=== PATIENT | male | born 1935 | race Caucasian/White ===

== ENCOUNTER 2017-02-05 14:07 | Inpatient (IN) | payer MEDICARE ==
[~2017-02-05] VITALS: Ht 172.7 cm; Wt 86.0 kg
[~2017-02-05 14:07] MED LIST: ASPI81 PO; GLUC250C5 PO; TOBRO LEFT EYE; WARF3TAB PO; [UNRECOGNIZED DRUG - CODE] PO
[2017-02-05] MEDS ORDERED: MORPHINE SULFATE 4 MG/ML INJ IV PUSH ONE (14:30)
[2017-02-05] MEDS ORDERED: ONDANSETRON HCL 4 MG/2 ML VIAL IVP ONE (14:30)
--- NOTE | 2017-02-05 14:35 | PD ---
HPI Chief Complaint: Fall Time Seen by Provider: 14:13 Travel History International Travel<30 days: No Contact w/Intl Traveler<30days: No History of Present Illness HPI 81-year-old male with PMH of A. fib, CAD s/p CABG, on ASA presents to the ED via EMS for evaluation of 10/25 right hip pain. Described as constant, worsened by any attempted movement. Onset after the patient stepped off the curb at [employer] and fell onto the concrete. He denies hitting his head or loss of consciousness. He has not been ambulatory since the accident. He denies numbness or tingling of the extremity. He states that he drank a milkshake just before arrival. He is unsure of the date of his last tetanus immunization. He is followed by Dr. Restrepo, PCP. Cardiology, Dr. Mckeon. 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) High Cholesterol: No Chemotherapy: No Chest Pain: No Congestive Heart Failure: No COPD: No Cerebrovascular Accident: No Diabetes: No Diminished Hearing: No Endocrine: Yes Glaucoma: No Genitourinary: No Hepatitis: No Hiatal Hernia: No Immune Disorder: No Musculoskeletal: No Neurologic: No Psychiatric: No Respiratory: No Migraines: No Radiation Therapy: No Seizures: No Sickle Cell Disease: No Sleep Apnea: No Thyroid Disease: No Past Surgical History Abdominal Surgery: No AICD: No Cardiac Surgery: No Ear Surgery: No Endocrine Surgery: No Eye Surgery: No Genitourinary Surgery: No Oral Surgery: No Pacemaker: Yes Thoracic Surgery: No Social History Alcohol Use: No Tobacco Use: No Substance Use: No Allergies-Medications (Allergen,Severity, Reaction): Coded Allergies: Sulfa (Sulfonamide Antibiotics) (Unverified Allergy, Severe, 10/30/16) shellfish derived (Unverified Allergy, Severe, 10/30/16) latex (Verified Adverse Reaction, Unknown, 02/05/17) Reported Meds & Prescriptions Reported Meds & Active Scripts Active Reported [Unk Antibiotic] Metoprolol Tartrate 25 Mg Tab Unknown Dose PO DAILY Aspirin Low Dose (Aspirin) 81 Mg Chew 81 Mg CHEW DAILY Review of Systems Except as stated in HPI: all other systems reviewed are Neg Physical Exam Narrative GENERAL: Well-nourished, well-developed pleasant white male in no acute distress. SKIN: Focused skin assessment warm/dry. The 2 cm x 4 cm skin tear on the posterior aspect of the right forearm without active bleeding. HEAD: Normocephalic. EYES: No scleral icterus. No injection or drainage. NECK: Supple, trachea midline. No JVD or lymphadenopathy. CARDIOVASCULAR: Regular rate and rhythm without murmurs, gallops, or rubs. RESPIRATORY: Breath sounds equal bilaterally. No accessory muscle use. GASTROINTESTINAL: Abdomen soft, non-tender, nondistended. MUSCULOSKELETAL: No cyanosis, or edema. FOCUSED RIGHT LOWER EXTREMITY EXAM: 2+ DP pulse. Tender to palpation in the right anterior lateral hip and groin. Pain elicited with attempted internal and external rotation. Patient is able to wiggle the toes. Sensation intact to light touch distally. BACK: Nontender without obvious deformity. No CVA tenderness. Data Data Last Documented VS Vital Signs Date Time Temp Pulse Resp B/P (MAP) Pulse Ox O2 Delivery O2 Flow Rate FiO2 02/05/17 14:46 97.8 69 20 142/70 (94) 95 Orders Orders Complete Blood Count With Diff (02/05/17 14:19) Comprehensive Metabolic Panel (02/05/17 14:19) Prothrombin Time / Inr (Pt) (02/05/17 14:19) Act Partial Throm Time (Ptt) (02/05/17 14:19) Type And Screen (02/05/17 14:19) Chest, Single Ap (02/05/17 14:19) Hip, Uni(Ap&Lat) W Ap Pelvis (02/05/17 14:19) Iv Access Insert/Monitor (02/05/17 14:19) Ice/Cold Pack (02/05/17 14:19) Morphine Inj (Morphine Inj) (02/05/17 14:30) Ondansetron Inj (Zofran Inj) (02/05/17 14:30) Tetanus/Diphtheria Tox Adult (Tetanus/Di (02/05/17 14:45) NPO (02/05/17 15:40) Urinary Catheter Management AMISHA.Q8H (02/05/17 15:40) Urinalysis - C+S If Indicated (02/05/17 15:40) Admit Order (Ed Use Only) (02/05/17 16:05) Consult Orthopedic (02/05/17 ) Labs Laboratory Tests Test 02/05/17 14:30 White Blood Count 12.2 TH/MM3 Red Blood Count 4.84 MIL/MM3 Hemoglobin 16.3 GM/DL Hematocrit 47.1 % Mean Corpuscular Volume 97.3 FL Mean Corpuscular Hemoglobin 33.7 PG Mean Corpuscular Hemoglobin Concent 34.6 % Red Cell Distribution Width 12.6 % Platelet Count 224 TH/MM3 Mean Platelet Volume 9.2 FL Neutrophils (%) (Auto) 62.8 % Lymphocytes (%) (Auto) 20.5 % Monocytes (%) (Auto) 9.8 % Eosinophils (%) (Auto) 6.4 % Basophils (%) (Auto) 0.5 % Neutrophils # (Auto) 7.6 TH/MM3 Lymphocytes # (Auto) 2.5 TH/MM3 Monocytes # (Auto) 1.2 TH/MM3 Eosinophils # (Auto) 0.8 TH/MM3 Basophils # (Auto) 0.1 TH/MM3 CBC Comment AUTO DIFF Differential Total Cells Counted 100 Neutrophils % (Manual) 62 % Band Neutrophils % 2 % Lymphocytes % 21 % Monocytes % 9 % Eosinophils % 4 % Basophils % 1 % Neutrophils # (Manual) 7.9 TH/MM3 Metamyelocytes 1 % Differential Comment FINAL DIFF MANUAL Platelet Estimate NORMAL Platelet Morphology Comment NORMAL Prothrombin Time 11.4 SEC Prothromb Time International Ratio 1.0 RATIO Activated Partial Thromboplast Time 26.1 SEC Blood Urea Nitrogen 18 MG/DL Creatinine 0.84 MG/DL Random Glucose 102 MG/DL Total Protein 7.9 GM/DL Albumin 3.7 GM/DL Calcium Level 9.0 MG/DL Alkaline Phosphatase 80 U/L Aspartate Amino Transf (AST/SGOT) 26 U/L Alanine Aminotransferase (ALT/SGPT) 28 U/L Total Bilirubin 0.7 MG/DL Sodium Level 137 MEQ/L Potassium Level 3.9 MEQ/L Chloride Level 102 MEQ/L Carbon Dioxide Level 28.7 MEQ/L Anion Gap 6 MEQ/L Estimat Glomerular Filtration Rate 88 ML/MIN MDM Medical Decision Making Medical Screen Exam Complete: Yes Emergency Medical Condition: Yes Differential Diagnosis Fracture versus femur fracture versus contusion versus muscle skeletal pain versus other Narrative Course 81-year-old male with PMH of A. fib, CAD s/p CABG, on ASA presents to the ED via EMS for evaluation of 8/10 right hip pain. Described as constant, worsened by any attempted movement. Onset after the patient stepped off the curb at [employer] and fell onto the concrete. He has not been ambulatory since the accident. He states that he drank a milkshake just before arrival. He states that he is currently taking an unknown antibiotic for bronchitis. He is followed by Dr. Restrepo, PCP. Cardiology, Dr. Mckeon. Vitals reviewed. On physical exam the patient has a small skin tear on the right arm and tenderness to palpation of the right groin and anterior lateral hip which is exacerbated by attempted internal and external rotation. 2+ DP pulse, sensation intact distally. The patient is able to wiggle his toes. IV was established. Patient was administered 2 mg morphine and 4 mg Zofran IV. Tetanus of his age was updated. X-ray right hip and pelvis: Comminuted intertrochanteric right hip fracture per my read. CBC: WBC 12.2. Hemoglobin 16.3. INR 1.0. Chemistry unremarkable. CXR: Compensated cardiomegaly with left atelectasis per radiology read. EKG: pending Ariza catheter was inserted and UA is pending. I discussed the patient with Dr. Díaz who plans surgery tomorrow. I discussed the patient with Dr. Shah who agrees to accept the patient to the medicine service. Please see medicine and Ortho notes for disposition. Aziza Trujillo Feb 05, 2017 14:35
[2017-02-05] MEDS ORDERED: TETANUS/DIPHTHERIA TOXOID ADULT 0.5 ML VIAL IM ONE (14:45)
[2017-02-05 14:46] VITALS: BP 142/70; PULSE 69; RESP 20; TEMP 97.8; O2SAT 95
[2017-02-05 14:54] LABS: AUTOMATED NEUTROPHIL # 7.6 TH/MM3 (1.8-7.7); BASOPHIL # 0.1 TH/MM3 (0-0.2); BASOPHIL % 0.5 % (0.0-2.0); EOSINOPHIL # 0.8 TH/MM3 (0-0.4); EOSINOPHIL % 6.4 % (0.0-4.0); HEMATOCRIT 47.1 % (39.0-51.0); LYMPH % 20.5 % (9.0-44.0); LYMPHOCYTE # 2.5 TH/MM3 (1.0-4.8); MEAN CELL VOLUME 97.3 FL (80.0-100.0); MEAN CORPUSCULAR HEMOGLOBIN 33.7 PG (27.0-34.0); MEAN CORPUSCULAR HGB CONC 34.6 % (32.0-36.0); MONO % 9.8 % (0.0-8.0); NEUT % 62.8 % (16.0-70.0); PLATELET COUNT 224 TH/MM3 (150-450); RED BLOOD COUNT 4.84 MIL/MM3 (4.50-5.90); RED CELL DISTRIBUTION WIDTH 12.6 % (11.6-17.2); WHITE BLOOD COUNT 12.2 TH/MM3 (4.0-11.0)
[2017-02-05 14:55] LABS: APTT (PATIENT) 26.1 SEC (24.3-30.1); PROTHROMBIN TIME - PATIENT 11.4 SEC (9.8-11.6)
[2017-02-05 15:10] LABS: ALT (GPT) 28 U/L (12-78); ANION GAP 6 MEQ/L (5-15); AST (GOT) 26 U/L (15-37); BICARBONATE 28.7 MEQ/L (21.0-32.0); BLOOD UREA NITROGEN 18 MG/DL (7-18); CHLORIDE 102 MEQ/L (98-107); GLOMERULAR FILTRATION RATE 88 ML/MIN (>89); POTASSIUM 3.9 MEQ/L (3.5-5.1); SODIUM (NA) 137 MEQ/L (136-145)
[2017-02-05 15:12] LABS: HEMO FLAGS AUTO DIFF
[2017-02-05 15:13] LABS: ALKALINE PHOSPHATASE 80 U/L (45-117); TOTAL BILIRUBIN ADULT 0.7 MG/DL (0.2-1.0)
[2017-02-05] MEDS ORDERED: UNK ANTIBIOTIC (15:17)
[2017-02-05] MEDS ORDERED: METO25TA3 PO (15:17)
[2017-02-05] MEDS ORDERED: ASPI81CH6 CHEW (15:17)
--- NOTE | 2017-02-05 15:19 | RADRPT ---
EXAM DATE/TIME: 02/05/2017 14:56 [facility] COMPARISON: No previous studies available for comparison. INDICATIONS : Chest discomfort; fall today. MEDICAL HISTORY : Afib. SURGICAL HISTORY : CABG. Pacemaker. Cardiac cath. Valve repair. ENCOUNTER: Initial ACUITY: 1 day PAIN SCORE: 2/10 LOCATION: Bilateral chest FINDINGS: Dual-lead pacemaker in place. Cardiac silhouette is enlarged. Minimal left lung base airspace disease and associated volume loss. Bony thorax is intact. CONCLUSION: 1. Compensated cardiomegaly. 2. Minimal left lung base airspace disease, likely atelectasis. Sal Birmingham MD on February 05, 2017 at 15:16 Board Certified Radiologist. This report was verified electronically.
--- NOTE | 2017-02-05 15:23 | RADRPT ---
EXAM DATE/TIME: 02/05/2017 14:53 [facility] COMPARISON: No previous studies available for comparison. INDICATIONS : Right hip pain; fall today. MEDICAL HISTORY : None. SURGICAL HISTORY : None. ENCOUNTER: Initial ACUITY: 1 day PAIN SCORE: 10/10 LOCATION: Right hip FINDINGS: Examination of the right hip was performed with AP Pelvis. The is an intertrochanteric fracture of t he right hip with some foreshortening. Prominent lesser trochanteric fragment. The acetabulum is akil ssly intact. CONCLUSION: Slightly comminuted intertrochanteric fracture. Lobo Woods MD on February 05, 2017 at 15:20 Board Certified Radiologist. This report was verified electronically.
[2017-02-05 15:29] LABS: BANDS 2 % (0-6); BASOPHILS 1 % (0-2); EOSINOPHILS 4 % (0-4); METAMYELOCYTES 1 % (0-1); NEUTROPHIL # MANUAL DIFF 7.9 TH/MM3 (1.8-7.7); POLYS (SEG NEUTROPHILS) 62 % (16-70); WBC DIFF SAMPLE 100
[2017-02-05 15:31] LABS: PLATELET ESTIMATE SMEAR NORMAL (NORMAL); PLATELET MORPHOLOGY NORMAL (NORMAL); SCAN/DIFF FINAL DIFF MANUAL
[2017-02-05 16:47] LABS: BLOOD, URINE NEG (NEG); COMMENT (UR) CATH-CULT NOT IND; CULTURE IF INDICATED CATH CULTURE NOT IND; GLUCOSE,URINE NEG (NEG); KETONE, URINE NEG (NEG); MUCUS URINE FEW /lpf (OCC); NITRITE,URINE NEG (NEG); URINE COLOR YELLOW (YELLW/STRAW)
[2017-02-05] MEDS: SODIUM CHLOR 0.9% 1000 ML INJ 1,000 ML IV SCH ×2 (17:06→20:24)
[2017-02-05] MEDS ORDERED: ACETAMINOPHEN 325 MG TAB PO PRN ×2 (17:15)
[2017-02-05] MEDS ORDERED: SODIUM CHLORIDE 0.9% FLUSH 10 ML FLUSH IV FLUSH PRN (17:15)
[2017-02-05] MEDS ORDERED: MORPHINE SULFATE 4 MG/ML INJ IV PUSH PRN ×3 (17:15)
[2017-02-05] MEDS ORDERED: oxyCODONE/ACETAMINOPHEN 10 MG/325 MG TAB PO PRN (17:15)
[2017-02-05] MEDS ORDERED: PROCHLORPERAZINE 25 MG SUPP RECTAL PRN (17:15)
[2017-02-05] MEDS ORDERED: BISACODYL 10 MG SUPP RECTAL PRN (17:15)
[2017-02-05] MEDS ORDERED: oxyCODONE/ACETAMINOPHEN 5 MG/325 MG TAB PO PRN (17:15)
[2017-02-05] MEDS ORDERED: LACTULOSE SYRUP 20 GM/30 ML CUP PO PRN (17:15)
[2017-02-05] MEDS ORDERED: ONDANSETRON HCL 4 MG/2 ML VIAL IVP PRN (17:15)
[2017-02-05] MEDS ORDERED: NALOXONE HCL 0.4 MG/ML AMP IV PUSH PRN (17:15)
--- NOTE | 2017-02-05 17:25 | HHI.HP ---
[facility] Service [facility] Primary Care Physician PERRY Admission Diagnosis right intertrochanteric hip fracture Diagnoses: Chief Complaint: FALL Travel History International Travel<30 Days: No Contact w/Intl Traveler <30 Da: No Traveled to Known Affected Are: No History of Present Illness Patient is an 81-year-old male with history of atrial fibrillation, coronary artery disease status post coronary artery bypass graft, on aspirin presents TO THE emergency department via EMS for evaluation of 8 out of 10 right hip pain. Patient describes the pain constant worsened by any attempt of movement. Onset after the patient stepped off the curb at the [employer] and fell onto the concrete. He denies hitting his head or loss of consciousness. He has not been ambulatory since the incident. He denies any numbness or tingling of the extremities. He states he drank a milkshake just before arrival. He is unsure of the last date of his tetanus immunization. HIS primary care physician is Dr. Restrepo AND his core shaper sides is Dr. CORRAL. Review of Systems Constitutional: DENIES: Diaphoretic episodes, Fatigue, Fever, Weight gain, Weight loss, Chills, Dizziness, Change in appetite Endocrine: DENIES: Heat/cold intolerance, Polydipsia, Polyuria, Polyphagia Eyes: DENIES: Blurred vision, Diplopia, Eye inflammation, Eye pain, Vision loss Ears, nose, mouth, throat: DENIES: Tinnitus, Hearing loss, Vertigo, Nasal discharge Respiratory: DENIES: Apneas, Cough, Snoring, Wheezing, Hemoptysis Cardiovascular: DENIES: Chest pain, Palpitations, Syncope, Dyspnea on Exertion Gastrointestinal: DENIES: Abdominal pain, Black stools, Bloody stools Musculoskeletal: COMPLAINS OF: Joint pain, DENIES: Muscle aches, Stiffness, Joint Swelling, Back pain Integumentary: DENIES: Abnormal pigmentation, Nail changes Hematologic/lymphatic: DENIES: Bruising, Lymphadenopathy Immunologic/allergic: DENIES: Eczema, Urticaria Neurologic: COMPLAINS OF: Abnormal gait, DENIES: Headache, Localized weakness, Paresthesias, Seizures, Speech Problems Psychiatric: DENIES: Anxiety, Confusion, Mood changes, Depression, Hallucinations Except as stated in HPI: all other systems reviewed are Neg Past Family Social History Past Medical History Atrial fibrillation Coronary artery disease and history of CABG History of permanent pacemaker Past Surgical History Permanent pacemaker placement and coronary artery bypass and graft Reported Medications Reported Meds & Active Scripts Active Reported [Unk Antibiotic] Metoprolol Tartrate 25 Mg Tab Unknown Dose PO DAILY Aspirin Low Dose (Aspirin) 81 Mg Chew 81 Mg CHEW DAILY Allergies: Coded Allergies: Sulfa (Sulfonamide Antibiotics) (Unverified Allergy, Severe, 10/30/16) shellfish derived (Unverified Allergy, Severe, 10/30/16) latex (Verified Adverse Reaction, Unknown, 02/05/17) Active Ordered Medications Current Medications Morphine Sulfate (Morphine Inj) 2 mg ONCE ONCE IV PUSH Last administered on 14:38; Start 02/05/17 at 14:30; Stop 02/05/17 at 14:31; Status DC Ondansetron HCl (Zofran Inj) 4 mg ONCE ONCE IVP Last administered on 14:37; Start 02/05/17 at 14:30; Stop 02/05/17 at 14:31; Status DC Tetanus/ Diphtheria Toxoids (Tetanus/ Diphtheria Tox Adult) 0.5 ml ONCE ONCE IM Last administered on 02/05/17 15:50; Start 02/05/17 at 14:45; Stop at 14:46; Status DC Metoprolol Tartrate (Lopressor) 25 mg Q12HR PO ; Start 02/05/17 at 21:00; Status UNV Family History Noncontributing Social History Denies any tobacco alcohol or illicits Physical Exam Vital Signs Vital Signs Date Time Temp Pulse Resp B/P (MAP) Pulse Ox O2 Delivery O2 Flow Rate FiO2 02/05/17 14:46 97.8 69 20 142/70 (94) 95 Physical Exam GENERAL: This is a well-nourished, well-developed patient, in mild distress. SKIN: No rashes, ecchymoses or lesions. Cool and dry. HEAD: Atraumatic. Normocephalic. No temporal or scalp tenderness. EYES: Pupils equal round and reactive. Extraocular motions intact. No scleral icterus. No injection or drainage. ENT: Nose without bleeding, purulent drainage or septal hematoma. Throat without erythema, tonsillar hypertrophy or exudate. Uvula midline. Airway patent. NECK: Trachea midline. No JVD or lymphadenopathy. Supple, nontender, no meningeal signs. CARDIOVASCULAR: Regular rate and rhythm without murmurs, gallops, or rubs. S1 and S2 no S3 or S4 no heave or thrill or rub or gallop-- rate is paced RESPIRATORY: Clear to auscultation. Breath sounds equal bilaterally. No wheezes , rales, or rhonchi. GASTROINTESTINAL: Abdomen soft, non-tender, nondistended. No hepato-splenomegaly , or palpable masses. No guarding. MUSCULOSKELETAL: Extremities without clubbing, cyanosis, or edema. No joint tenderness, effusion, or edema noted. No calf tenderness. Negative Homans sign bilaterally. Tender right hip patient has decreased range of motion and let me move IT NEUROLOGICAL: Awake and alert. Cranial nerves II through XII intact. Motor and sensory grossly within normal limits. Five out of 5 muscle strength in all muscle groups. Normal speech. Insight and judgment is good mood and behaviors appropriate Laboratory Laboratory Tests Test 02/05/17 14:30 02/05/17 16:15 White Blood Count 12.2 Red Blood Count 4.84 Hemoglobin 16.3 Hematocrit 47.1 Mean Corpuscular Volume 97.3 Mean Corpuscular Hemoglobin 33.7 Mean Corpuscular Hemoglobin Concent 34.6 Red Cell Distribution Width 12.6 Platelet Count 224 Mean Platelet Volume 9.2 Neutrophils (%) (Auto) 62.8 Lymphocytes (%) (Auto) 20.5 Monocytes (%) (Auto) 9.8 Eosinophils (%) (Auto) 6.4 Basophils (%) (Auto) 0.5 Neutrophils # (Auto) 7.6 Lymphocytes # (Auto) 2.5 Monocytes # (Auto) 1.2 Eosinophils # (Auto) 0.8 Basophils # (Auto) 0.1 CBC Comment AUTO DIFF Differential Total Cells Counted 100 Neutrophils % (Manual) 62 Band Neutrophils % 2 Lymphocytes % 21 Monocytes % 9 Eosinophils % 4 Basophils % 1 Neutrophils # (Manual) 7.9 Metamyelocytes 1 Differential Comment FINAL DIFF MANUAL Platelet Estimate NORMAL Platelet Morphology Comment NORMAL Prothrombin Time 11.4 Prothromb Time International Ratio 1.0 Activated Partial Thromboplast Time 26.1 Blood Urea Nitrogen 18 Creatinine 0.84 Random Glucose 102 Total Protein 7.9 Albumin 3.7 Calcium Level 9.0 Alkaline Phosphatase 80 Aspartate Amino Transf (AST/SGOT) 26 Alanine Aminotransferase (ALT/SGPT) 28 Total Bilirubin 0.7 Sodium Level 137 Potassium Level 3.9 Chloride Level 102 Carbon Dioxide Level 28.7 Anion Gap 6 Estimat Glomerular Filtration Rate 88 Urine Color YELLOW Urine Turbidity HAZY Urine pH 7.0 Urine Specific [place] 1.021 Urine Protein NEG Urine Glucose (UA) NEG Urine Ketones NEG Urine Occult Blood NEG Urine Nitrite NEG Urine Bilirubin NEG Urine Urobilinogen LESS THAN 2.0 Urine Leukocyte Esterase NEG Urine RBC 2 Urine WBC 2 Urine Amorphous Sediment RARE Urine Mucus FEW Microscopic Urinalysis Comment CATH-CULT NOT IND Result Diagram: 02/05/17 1430 02/05/17 143 Imaging Last Impressions Hip and Pelvis X-Ray 02/05/171418 Signed Impressions: Service Date/Time: Sunday, February 05, 2017 14:53 - CONCLUSION: Slightly comminuted intertrochanteric fracture. Lobo Woods MD Chest X-Ray 02/05/171418 Signed Impressions: Service Date/Time: Sunday, February 05, 2017 14:56 - CONCLUSION: 1. Compensated cardiomegaly. 2. Minimal left lung base airspace disease, likely atelectasis. MD Oscar Cordova VTE Risk Assessment Billrini VTE Risk Assessment: Mod/High Risk (score >= 2) Caprini Risk Assessment Model Point Value = 1 Point Value = 2 Point Value = 3 Point Value = 5 Age 41-60 Minor surgery BMI > 25 kg/m2 Swollen legs Varicose veins or History of unexplained or recurrent spontaneous Oral contraceptives or hormone replacement Sepsis (< 1 month) Serious lung disease, including pneumonia (< 1 month) Abnormal pulmonary function Acute myocardial infarction Congestive heart failure (< 1 month) History of inflammatory bowel disease Medical patient at bed rest Age 61-74 Arthroscopic surgery Major open surgery (> 45 min) Laparoscopic surgery (> 45 min) Malignancy Confined to bed (> 72 hours) Immobilizing plaster cast Central venous access Age >= 75 History of VTE Family history of VTE Factor V Leiden Prothrombin [id number] Lupus anticoagulant Anticardiolipin antibodies Elevated serum homocysteine Heparin-induced thrombocytopenia Other congenital or acquired thrombophilia Stroke (< 1 month) Elective arthroplasty Hip, pelvis, or leg fracture Acute spinal cord injury (< 1 month) Prophylaxis Regimen Total Risk Factor Score Risk Level Prophylaxis Regimen 0-1 Low Early ambulation 2 Moderate Order ONE of the following: *Sequential Compression Device (SCD) *Heparin 5000 units SQ BID 3-4 Higher Order ONE of the following medications: *Heparin 5000 units SQ TID *Enoxaparin/Lovenox 40 mg SQ daily (WT < 150 kg, CrCl > 30 mL/min) *Enoxaparin/Lovenox 30 mg SQ daily (WT < 150 kg, CrCl > 10-29 mL/min) *Enoxaparin/Lovenox 30 mg SQ BID (WT < 150 kg, CrCl > 30 mL/min) AND/OR *Sequential Compression Device (SCD) 5 or more Highest Order ONE of the following medications: *Heparin 5000 units SQ TID (Preferred with Epidurals) *Enoxaparin/Lovenox 40 mg SQ daily (WT < 150 kg, CrCl > 30 mL/min) *Enoxaparin/Lovenox 30 mg SQ daily (WT < 150 kg, CrCl > 10-29 mL/min) *Enoxaparin/Lovenox 30 mg SQ BID (WT < 150 kg, CrCl > 30 mL/min) AND *Sequential Compression Device (SCD) Assessment and Plan Assessment and Plan Right intertrochanteric comminuted hip fracture status post fall-consult surgery Dr. Anton Consult cardiology for clearance Dr. CORRAL Pain control Nothing by mouth after midnight SCDs Chronic pacemaker consult cardiology Coronary artery disease status post CABG Continue metoprolol Chronic atrial fibrillation hold any anticoagulation consult cardiology for clearance Continue metoprolol Leukocytosis a.m. labs Moderate risk for surgery Code Status Full code Discussed Condition With Discussed with patient, RN, and family, and ER Physician Certification 2 Midnight Certification Type: Admission for Inpatient Services Order for Inpatient Services The services are ordered in accordance with Medicare regulations or non- Medicare payer requirements, as applicable. In the case of services not specified as inpatient-only, they are appropriately provided as inpatient services in accordance with the 2-midnight benchmark. Estimated LOS (days): 3 3 days is the estimated time the patient will need to remain in the hospital, assuming treatment plan goals are met and no additional complications. Post-Hospital Plan: Not yet determined Franklyn Shah DO Feb 05, 2017 17:25
[2017-02-05 20:23] VITALS: PULSE 80
[2017-02-05] MEDS: METOPROLOL TARTRATE 25 MG TAB PO SCH (20:24)
[2017-02-05] MEDS: DOCUSATE SODIUM 50 MG/SENNA 8.6 MG TAB PO SCH (20:24)
[2017-02-05] MEDS: SODIUM CHLORIDE 0.9% FLUSH 10 ML FLUSH IV FLUSH SCH (20:24)
[2017-02-05 20:25] VITALS: BP 131/71; PULSE 87; RESP 17; TEMP 98.3; O2SAT 95
[2017-02-06] VITALS (7 sets, daily range): BP systolic 110–125; BP diastolic 55–70; PULSE 78–98; RESP 17–18; TEMP 96–99; O2SAT 92–97
[2017-02-06] MEDS: SODIUM CHLOR 0.9% 1000 ML INJ 1,000 ML IV SCH ×2 (04:24→23:06)
[2017-02-06 04:35] LABS: AUTOMATED NEUTROPHIL # 11.1 TH/MM3 (1.8-7.7); BASOPHIL % 0.2 % (0.0-2.0); EOSINOPHIL # 0.3 TH/MM3 (0-0.4); EOSINOPHIL % 1.7 % (0.0-4.0); HEMO FLAGS DIFF FINAL; LYMPH % 15.4 % (9.0-44.0); LYMPHOCYTE # 2.4 TH/MM3 (1.0-4.8); MEAN CELL VOLUME 95.6 FL (80.0-100.0); MEAN CORPUSCULAR HEMOGLOBIN 32.7 PG (27.0-34.0); MEAN CORPUSCULAR HGB CONC 34.2 % (32.0-36.0); MONO % 11.9 % (0.0-8.0); NEUT % 70.8 % (16.0-70.0); PLATELET COUNT 225 TH/MM3 (150-450); RED BLOOD COUNT 4.08 MIL/MM3 (4.50-5.90); RED CELL DISTRIBUTION WIDTH 12.6 % (11.6-17.2); WHITE BLOOD COUNT 15.7 TH/MM3 (4.0-11.0)
[2017-02-06 04:53] LABS: ALKALINE PHOSPHATASE 56 U/L (45-117); ALT (GPT) 16 U/L (12-78); ANION GAP 7 MEQ/L (5-15); AST (GOT) 21 U/L (15-37); BICARBONATE 26.7 MEQ/L (21.0-32.0); BLOOD UREA NITROGEN 15 MG/DL (7-18); CHLORIDE 103 MEQ/L (98-107); FREE T4 1.39 NG/DL (0.76-1.46); GLOMERULAR FILTRATION RATE 99 ML/MIN (>89); MAGNESIUM 1.8 MG/DL (1.5-2.5); POTASSIUM 4.3 MEQ/L (3.5-5.1); SODIUM (NA) 137 MEQ/L (136-145); TOTAL BILIRUBIN ADULT 1.1 MG/DL (0.2-1.0)
--- NOTE | 2017-02-06 07:00 | PD.ORT.PN ---
Subjective Subjective Remarks Fransico was at [employer] when somebody was talking to him and as he turned around to respond he tripped and fell over the curb and landed on his right hip. He had significant pain and was unable to ambulate. He has no other associated complaints Objective Vitals Vital Signs Date Time Temp Pulse Resp B/P (MAP) Pulse Ox O2 Delivery O2 Flow Rate FiO2 02/06/17 04:10 98.9 80 17 114/59 (77) 95 02/06/17 00:15 99.0 79 17 110/55 (73) 94 02/05/17 20:25 98.3 87 17 131/71 (91) 95 02/05/17 20:23 80 02/05/17 14:46 97.8 69 20 142/70 (94) 95 I/O 02/05/17 02/05/17 02/05/17 02/06/17 02/06/17 02/06/17 07:00 15:00 23:00 07:00 15:00 23:00 Intake Total 120 ml 1150 ml Output Total 425 ml 300 ml Balance -305 ml 850 ml Intake Oral 120 ml 0 ml IV Total 1150 ml Output Urine Total 425 ml 300 ml # Bowel Movements 0 0 Result Diagram: 02/06/17 0350 02/06/17 0350 Other Results Laboratory Tests Test 02/05/17 14:30 Prothromb Time International Ratio 1.0 RATIO Prothrombin Time 11.4 SEC (9.8-11.6) Imaging Last 24 hours Impressions Hip and Pelvis X-Ray 02/05/171418 Signed Impressions: Service Date/Time: Sunday, February 05, 2017 14:53 - CONCLUSION: Slightly comminuted intertrochanteric fracture. Lobo Woods MD Chest X-Ray 02/05/171418 Signed Impressions: Service Date/Time: Sunday, February 05, 2017 14:56 - CONCLUSION: 1. Compensated cardiomegaly. 2. Minimal left lung base airspace disease, likely atelectasis. Sal Birmingham MD Objective Remarks Right lower extremity: Pain to palpation of hip and with any movement of hip. He has no pain to palpation of knee or ankle. Distally he has intact sensation with good capillary refills active dorsiflexion plantar flexion of foot. Left lower extremity full range of motion neurovascularly intact Bilateral upper extremities: Full range of motion and neurovascularly intact Assessment & Plan Assessment and Plan Right intertrochanteric femur fracture Surgery is necessary for stabilization of intertrochanteric fracture. Once cardiac clearance is obtained we will proceed. We will continue to maintain nothing by mouth status and we will anticipate surgery this morning if possible. Bedrest Sign consents Benigno Cardona Jr. Feb 06, 2017 07:00
[2017-02-06] MEDS ORDERED: XARE10TA PO (07:12)
[2017-02-06] MEDS ORDERED: WALKER/ADULT/FO1 MIS (07:12)
[2017-02-06] MEDS ORDERED: VITA500012 PO (07:12)
[2017-02-06] MEDS ORDERED: VITA2000 PO (07:12)
[2017-02-06] MEDS ORDERED: HYDR-3580 PO (07:12)
[2017-02-06] MEDS ORDERED: CALCTAB19 PO (07:12)
[2017-02-06] MEDS: METOPROLOL TARTRATE 25 MG TAB PO SCH ×2 (08:17→20:50)
[2017-02-06] MEDS: SODIUM CHLORIDE 0.9% FLUSH 10 ML FLUSH IV FLUSH SCH (08:18)
[2017-02-06] MEDS: DOCUSATE SODIUM 50 MG/SENNA 8.6 MG TAB PO SCH ×2 (08:20→20:50)
--- NOTE | 2017-02-06 09:06 | MB ---
cc: DEEPA SAL DATE OF CONSULTATION 02/06/2017 DATE OF ADMISSION 02/05/2017 REASON FOR CONSULTATION Right hip intertrochanteric fracture. CONSULTING PHYSICIAN Dr. Franklyn Shah HISTORY Fransico is an 81-year-old male who has history of atrial fibrillation and coronary artery disease. He had a mechanical fall. He states that he was walking out of a restaurant and was turning around. He tripped over a curb. He fell and landed on his right hip. He had immediate right hip pain. He was unable to stand or ambulate. He presented to the emergency room where x-rays revealed a right hip intertrochanteric fracture. He is denies dizziness, syncope or loss of consciousness. Pain is worse with movement. Pain is improved with rest. Dr. Mckeon is his publications distribution clerk. PAST MEDICAL HISTORY Illness: 1. Atrial fibrillation 2. Coronary disease 3. History of pacemaker. SURGERIES 1. Pacemaker placement 2. Coronary artery bypass grafting ALLERGIES SULFA, SHELLFISH AND LATEX MEDICATIONS Include: 1. Metoprolol 2. Aspirin MEDICATIONS Please see EMR for a complete list of inpatient medications. FAMILY HISTORY Noncontributory SOCIAL HISTORY The patient denies alcohol, tobacco or drug use. REVIEW OF SYSTEMS The patient denies headache, visual changes, neck pain, chest pain, shortness of breath, abdominal pain, nausea, vomiting, recent weight loss, numbness or tingling of extremities. He complains of the right hip pain. Pain is worse with movement. PHYSICAL EXAMINATION The patient is a pleasant 81-year male in no acute distress. He is awake and alert. He is alert and oriented x3. He appears well and is well-nourished. VITAL SIGNS: Temperature 96.4, pulse 78, respirations 18, blood pressure 125/61, O2 sat 93% on room air. HEAD: The patient is normocephalic. EYES: Pupils are equal. NECK: Soft, nontender. Trachea is midline. ABDOMEN: Soft, nontender, nondistended. EXTREMITIES: Examination of the bilateral upper extremities reveals no pain with shoulder or wrist motion. He has intact sensation in all fingers. He has good cap refill in all fingers. Radial pulses are palpable bilaterally. Examination of the left leg reveals no pain with hip, knee or ankle motion. Skin is intact. Dorsalis pedis pulse is palpable. Sensation is intact. Examination of the right leg reveals the leg is shortened and externally rotated. He has pain with any hip motion. He is very tender to palpation over the proximal femur. He has no tenderness over his knee, tibia, or ankle. Skin is intact. Dorsalis pedis pulse is palpable. Sensation is intact. X-RAYS X-rays of the right hip were reviewed. X-rays reveal a mildly comminuted intertrochanteric hip fracture. IMPRESSION Right hip intertrochanteric fracture. PLAN Treatment options were discussed with the patient. At this point, I would recommend reduction and intramedullary nail fixation of the right hip. The risks of surgery include bleeding, infection, injury to arteries, nerves and blood vessels, nonunion, malunion, painful hardware, as well as medical complications including blood clot, stroke, heart attack and . All questions were answered. I will plan on surgery today if he is cleared by cardiology. A mid-level provider in my office, nurse practitioner or PA, may see this patient on a follow-up basis and continue to implement the objective of this plan including: Starting or adjusting medications, injections of muscle, tendon, bursa or joints, cast application, orthotic or brace application, physical therapy, further radiographic studies including x-ray, MRI, CT, ultrasounds or bone scan, vascular studies, neurologic studies, or other specialist consultations, and proceeding with surgical management as appropriate. MD GLEN Tovar/MILLER /8:24 AM /8:55 AM
--- NOTE | 2017-02-06 09:08 | EKG ---
Date Performed: 02/05/2017 Time Performed: 21:56:34 PTAGE: 81 years EKG: ELECTRONIC VENTRICULAR PACEMAKER ABNORMAL RHYTHM ECG PREVIOUS TRACING : 05/18/2011 04.55 DOCTOR: Lobo Adrian Interpretating Date/Time 02/06/2017 09:05:29
[2017-02-06] MEDS ORDERED: BUPIVACAINE/EPINEPHRINE 0.25% PF 10 ML VIAL ONE (10:15)
[2017-02-06] MEDS ORDERED: VANCOMYCIN HCL 1000 MG VIAL ONE (10:15)
[2017-02-06] MEDS ORDERED: SODIUM CHLOR 0.9% 250 ML INJ 250 ML ONE (10:15)
--- NOTE | 2017-02-06 10:50 | MB ---
cc: ALBA PURCELL DATE OF CONSULTATION: 02/06/2017 HISTORY OF PRESENT ILLNESS Mr. Jimenes is an 81-year-old white male with a history of coronary artery disease, two-vessel bypass, aortic valve replacement for aortic stenosis and mitral valve repair. He slipped and fell and broke his hip in front of the [employer]. He has not had any angina, dyspnea on exertion, PND, orthopnea or peripheral edema. He has not had any dizziness, lightheadedness or palpitations. He is a patient of Dr. Mckeon. PAST MEDICAL/SURGICAL HISTORY 1. Coronary artery disease; two-vessel bypass. 2. Aortic valve replacement using a bovine valve for aortic stenosis. 3. Mitral valve repair for mitral stenosis. 4. Left atrial ablation and clipping of the left atrial appendage in March 2013. 5. History of atrial fibrillation. 6. Medtronic dual-chamber pacemaker. 7. Nonsustained ventricular tachycardia. 8. Complete heart block. 10.History of pneumonia. 11.History of skin cancer. 12.Bypass in March 2011 with vein graft to ramus and diagonal. 13.History of aortic valve replacement using [address] Abdulkadir bovine pericardial valve. 14.Mitral valve repair using St. Abdulkadir ring. MEDICATIONS Medications at home included: 1. Aspirin. 2. Metoprolol. 3. Glucosamine. 4. Vitamin-B12. 5. Prevagen. The patient has a history of bleeding and has been unable to take anticoagulants. ALLERGIES 1. SULFA. 2. LASIX. SOCIAL HISTORY The patient does not smoke. He drinks alcohol socially and infrequently. FAMILY HISTORY Negative for heart disease. REVIEW OF SYSTEMS Otherwise negative. PHYSICAL EXAMINATION VITAL SIGNS: Blood pressure 125/61, pulse 78 and regular. HEENT: Negative. NECK: 2+ carotid upstrokes. No bruits. LUNGS: Clear. HEART: Regular with no murmur, gallop or rub. ABDOMEN: Soft. No bruits. EXTREMITIES: Without edema. 2+ distal pulses. NEUROLOGIC: Grossly nonfocal. EKG EKG was reviewed and showed sinus rhythm and ventricular pacing. LABORATORY Hemoglobin 13.4. Potassium 4.3. Creatinine 0.76. AST and ALT normal. TSH 0.7. ECHOCARDIOGRAM Echocardiogram in Dr. Mckeon's office in August 2016 showed an ejection fraction of 55%, normal function of the aortic valve prosthesis, trace AI, trace to mild MR, moderate TR. DIAGNOSIS 1. Right hip fracture. 2. Coronary artery disease; history of two-vessel coronary bypass. 3. Atrial fibrillation, status post ablation. 4. Status post Medtronic dual-chamber pacemaker placement. 5. Status post aortic valve replacement. 6. Status post mitral valve repair. DISPOSITION Mr. Jimenes has had no angina or heart failure symptoms. His risk of perioperative cardiac complications is increased to a moderate degree but not prohibitive. I recommend to proceed with his hip surgery as planned this morning. I recommend the patient to be monitored on telemetry after his procedure. Recommend to continue his current medical program including therapy with metoprolol and baby aspirin. He will follow-up with Dr. Mckeon, his primary semiconductor wafers etch operator, in his office after discharge. Alba Purcell MD OQ/BT /10:29 AM /10:38 AM
[2017-02-06] MEDS ORDERED: ACETAMINOPHEN 1000 MG/100 ML 100 ML IV ONE (10:57)
[2017-02-06] MEDS ORDERED: ceFAZolin 2 GM PREMIX 50 ML ONE (11:03)
[2017-02-06] MEDS ORDERED: GENTAMICIN SULFATE 80 MG/2 ML VIAL ONE (11:03)
[2017-02-06] MEDS ORDERED: diphenhydrAMINE HCL 25 MG CAP PO PRN (11:15)
[2017-02-06] MEDS ORDERED: MORPHINE SULFATE 4 MG/ML INJ IV PUSH PRN (11:15)
[2017-02-06] MEDS ORDERED: SODIUM CHLORIDE 0.9% FLUSH 5 ML FLUSH IVF PRN (11:15)
--- NOTE | 2017-02-06 11:45 | PD.OP ---
cc: Nabor Traylor MD Operative Report Date of Surgery: Feb 06, 2017 Preoperative Diagnosis: Displaced right hip intertrochanteric fracture Postoperative Diagnosis: Procedure: Right hip reduction and intramedullary nail fixation Anesthesia: Gen. Surgeon: Nabor Traylor Rotogravure Press Operator(s): SHAYNA Montelongo PA-C The surgical procedure was assisted by my physician production assistant. My P.A. presence was necessary throughout this case for the manipulation and positioning of the surgical extremity. My P.A. was assisting me throughout the duration of this procedure. The skill set of a physician production assistant was medically necessary to complete this procedure. During the surgical case the surgical supplies sterilizer was working at the back table and the physician production assistant was directly assisting me. Operation and Findings: Implants used: [125 11 mm Synthes TFNA intermediate troch nail Plan of activity: Weight-bear as tolerated Patient was seen and evaluated preoperatively. The patient has significant hip pain from intertrochanteric hip fracture. The risk and benefits of surgery were discussed in depth with the patient to include bleeding infection nonunion malunion and need for hip replacement painful hardware as well as medical competitions including but not stroke heart attack and . Informed consent was obtained. Operative site was marked. Patient was brought to the operating room and placed on fracture table. IV sedation was administered by anesthesiologist. Timeout procedure was performed. Hip and leg were prepped with alcohol followed by DuraPrep and draped in the usual sterile fashion. IV antibiotics were given prior to incision. Procedure began with reduction of fracture. Traction was applied. The leg was manipulated to achieve reduction. Excellent reduction was achieved. Fluoroscopy was used to confirm reduction. A three inch incision was made proximal to the trochanter. Subcutaneous tissue was dissected bluntly. Guidepin was placed at the tip of the trochanter and advanced into the femoral canal. Fluoroscopy confirmed appropriate guidepin placement. A opening reamer was placed over the guidepin. The Synthes TFNA nail was attached to the insertion handle. Nail was now placed through the tip of the trochanter into the femoral canal. Fluoroscopy confirmed appropriate nail placement. A second incision was made over the lateral thigh. Cannulas were placed through the insertion handle down to the femur. Guidepin was now placed through the femoral nail into the center of the femoral head. Fluoroscopy confirmed appropriate guidepin placement. Screw length was measured. Cannulated drill was placed over the guidepin. Appropriate length lag screw was now placed. Traction was released and compression was applied. The set screw was now tightened in dynamic mode. Using the insertion handle as a guide a distal interlocking screw was drilled and placed. Final fluoroscopy revealed well aligned fracture with well-placed hardware. Incision was closed with 3-0 Vicryl and hipolito. Sterile dressings were applied. Patient was awakened and transferred to recovery room. Nabor Traylor MD Feb 06, 2017 11:45
--- NOTE | 2017-02-06 11:55 | RADRPT ---
EXAM DATE/TIME: 02/06/2017 11:40 [facility] COMPARISON: HIP RIGHT (AP&LAT 2/3VWS) W AP PELVIS, February 05, 2017, 14:53. INDICATIONS : Right hip fracture, ORIF done in operating room. MEDICAL HISTORY : None. SURGICAL HISTORY : None. ENCOUNTER: Initial ACUITY: 1 day PAIN SCORE: Non-responsive. LOCATION: Right hip. FINDINGS: A two view examination of the right hip was performed. The patient's had a ORIF of a intertrochanteri c fracture with excellent result.. CONCLUSION: Status post ORIF of a comminuted intertrochanteric fracture. Lobo Woods MD on February 06, 2017 at 11:53 Board Certified Radiologist. This report was verified electronically.
[2017-02-06] MEDS ORDERED: *RESP: ALBUTEROL 2.5 MG/3 ML NEB (PRN) PERIprocedural Use ONLY NEB ONE (12:47)
[2017-02-06] MEDS ORDERED: *morphine SULFATE 8 MG/ML PERIprocedure ONLY ONE (12:49)
[2017-02-06] MEDS ORDERED: ERGOCALCIFEROL (VIT D2) 50,000 UNIT CAP PO ONE (13:00)
[2017-02-06] MEDS: CALCIUM/VITAMIN D 250 MG/125 U TAB PO SCH ×2 (13:00→18:22)
[2017-02-06 13:02] LABS: HEMOGLOBIN A1b 0.9 %; HEMOGLOBIN Ao 85.1 %; HEMOGLOBIN F 0.9 %; HEMOGLOBIN LA1C 2.5 %; HEMOGLOBIN P3 3.7 %
[2017-02-06] MEDS ORDERED: DO NOT ADM ANY ANTICOAGULANT DRUGS PRN (13:15)
--- NOTE | 2017-02-06 13:46 | HHI.PR ---
Subjective Remarks Follow-up orthopedic injury. Patient returned from surgery. He has no new complaints. Seen with family. Anesthesia records reviewed. Discussed with RN Objective Vitals Vital Signs Date Time Temp Pulse Resp B/P (MAP) Pulse Ox O2 Delivery O2 Flow Rate FiO2 02/06/17 07:53 96.4 78 18 125/61 (82) 93 02/06/17 04:10 98.9 80 17 114/59 (77) 95 02/06/17 00:15 99.0 79 17 110/55 (73) 94 02/05/17 20:25 98.3 87 17 131/71 (91) 95 02/05/17 20:23 80 02/05/17 14:46 97.8 69 20 142/70 (94) 95 I/O 02/05/17 02/05/17 02/05/17 02/06/17 02/06/17 02/06/17 07:00 15:00 23:00 07:00 15:00 23:00 Intake Total 120 ml 1150 ml 400 ml Output Total 425 ml 300 ml 75 ml Balance -305 ml 850 ml 325 ml Intake Oral 120 ml 0 ml IV Total 1150 ml Other 400 ml Output Urine Total 425 ml 300 ml Estimated Blood Loss 75 ml # Bowel Movements 0 0 Result Diagram: 02/06/17 0350 02/06/17 0350 Imaging Last Impressions Hip X-Ray 02/06/17 0000 Signed Impressions: Service Date/Time: Monday, February 06, 2017 11:40 - CONCLUSION: Status post ORIF of a comminuted intertrochanteric fracture. Lobo Woods MD Hip and Pelvis X-Ray 02/05/17 1419 Signed Impressions: Service Date/Time: Sunday, February 05, 2017 14:53 - CONCLUSION: Slightly comminuted intertrochanteric fracture. Lobo Woods MD Chest X-Ray 02/05/17 1419 Signed Impressions: Service Date/Time: Sunday, February 05, 2017 14:56 - CONCLUSION: 1. Compensated cardiomegaly. 2. Minimal left lung base airspace disease, likely atelectasis. Sal Birmingham MD Objective Remarks GENERAL: This is a well-nourished, well-developed patient, in no distress. SKIN: No rashes, ecchymoses or lesions. Cool and dry. CARDIOVASCULAR: Regular rate and rhythm without murmurs, gallops, or rubs. S1 and S2 no S3 or S4 no heave or thrill or rub or gallop-- rate is paced RESPIRATORY: Clear to auscultation. Breath sounds equal bilaterally. No wheezes , rales, or rhonchi. GASTROINTESTINAL: Abdomen soft, non-tender, nondistended. No guarding. MUSCULOSKELETAL: Extremities without clubbing, cyanosis, or edema. No joint tenderness, effusion, or edema noted. No calf tenderness. Negative Homans sign bilaterally. Tender right hip NEUROLOGICAL: Lethargic. Cranial nerves II through XII intact. Motor and sensory grossly within normal limits. Five out of 5 muscle strength in all muscle groups. Normal speech. Procedures Right hip reduction and intramedullary nail fixation A/P Problem List: (1) Intertrochanteric fracture of right femur ICD Code: S72.141A - Displaced intertrochanteric fracture of right femur, initial encounter for closed fracture Assessment and Plan Right intertrochanteric comminuted hip fracture status post repair. Stable. Continue postoperative care with pain management with Lortab and morphine sulfate, wound care, physical therapy DVT prophylaxis with Lovenox Coronary artery disease status post CABG. Stable continue metoprolol and aspirin when okay with orthopedic surgery Chronic atrial fibrillation. Stable continue metoprolol and aspirin as above. Leukocytosis likely reactive Hyperglycemia. Obtain A1c Discharge Planning DC planning per orthopedic surgery Problem Qualifiers (1) Intertrochanteric fracture of right femur: Qualified Codes: S72.141A - Displaced intertrochanteric fracture of right femur , initial encounter for closed fracture Thang Toscano MD Feb 06, 2017 13:46
[2017-02-06] MEDS: SODIUM CHLORIDE 0.9% FLUSH 5 ML FLUSH IVF SCH (20:49)
[2017-02-06] MEDS: SENNOSIDES 8.6 MG TAB PO PRN (20:50)
[2017-02-06] MEDS: ACETAMINOPHEN/HYDROcodone 325 MG/7.5 MG TAB PO PRN (20:50)
[2017-02-06] MEDS: MAGNESIUM HYDROXIDE SUSP 30 ML CUP PO PRN (20:50)
[2017-02-06] MEDS ORDERED: POVIDONE IODINE 5% (ANTISEPSIS KIT) 4 APPLICATIONS EACH NARE PRN (23:00)
[2017-02-06] MEDS ORDERED: CHLORHEXIDINE GLUCONATE 2 % 1 PACK (2 CLOTHS) TOPICAL PRN (23:00)
[2017-02-06] MEDS ORDERED: LACTATED RINGER'S 1000 ML IV PRN (23:00)
[2017-02-07] VITALS (10 sets, daily range): BP systolic 106–136; BP diastolic 62–68; PULSE 63–99; RESP 18; TEMP 96.8–98.8; O2SAT 91–96
[2017-02-07 06:15] LABS: AUTOMATED NEUTROPHIL # 14.8 TH/MM3 (1.8-7.7); BASOPHIL # 0.1 TH/MM3 (0-0.2); BASOPHIL % 0.3 % (0.0-2.0); EOSINOPHIL # 0.1 TH/MM3 (0-0.4); EOSINOPHIL % 0.3 % (0.0-4.0); HEMATOCRIT 37.7 % (39.0-51.0); LYMPH % 11.5 % (9.0-44.0); LYMPHOCYTE # 2.3 TH/MM3 (1.0-4.8); MEAN CELL VOLUME 97.1 FL (80.0-100.0); MEAN CORPUSCULAR HEMOGLOBIN 33.3 PG (27.0-34.0); MEAN CORPUSCULAR HGB CONC 34.3 % (32.0-36.0); MONO % 13.6 % (0.0-8.0); NEUT % 74.3 % (16.0-70.0); PLATELET COUNT 209 TH/MM3 (150-450); RED BLOOD COUNT 3.89 MIL/MM3 (4.50-5.90); RED CELL DISTRIBUTION WIDTH 12.8 % (11.6-17.2); WHITE BLOOD COUNT 19.9 TH/MM3 (4.0-11.0)
[2017-02-07 06:24] LABS: HEMO FLAGS AUTO DIFF
[2017-02-07 06:44] LABS: BICARBONATE 24.9 MEQ/L (21.0-32.0); MAGNESIUM 2.1 MG/DL (1.5-2.5); POTASSIUM 4.1 MEQ/L (3.5-5.1)
[2017-02-07] MEDS ORDERED: LEVA750T9 PO (08:37)
--- NOTE | 2017-02-07 08:38 | HHI.DCPOC ---
Discharge Care Plan Diagnosis: (1) Intertrochanteric fracture of right femur Your Health Problems Are: Difficulty with ADL Exercise Tolerance Goals to Promote Your Health * To prevent worsening of your condition and complications * To maintain your health at the optimal level Directions to Meet Your Goals Take your medications as prescribed Follow your dietary instruction Follow activity as directed Keep your appointments as scheduled Take your immunizations and boosters as scheduled If your symptoms worsen call your PCP, if no PCP go to Urgent Care Center or Emergency Room Smoking is Dangerous to Your Health. Avoid second hand smoke Call the 24-hour hour crisis hotline for domestic abuse at Thang Toscano MD Feb 07, 2017 08:38
[2017-02-07 08:40] LABS: BANDS 12 % (0-6); MYELOCYTES 2 % (0-0); NEUTROPHIL # MANUAL DIFF 13.7 TH/MM3 (1.8-7.7); PLATELET ESTIMATE SMEAR NORMAL (NORMAL); PLATELET MORPHOLOGY NORMAL (NORMAL); POLYS (SEG NEUTROPHILS) 55 % (16-70); SCAN/DIFF FINAL DIFF MANUAL; WBC DIFF SAMPLE 100
--- NOTE | 2017-02-07 08:42 | HHI.PR ---
Subjective Remarks Follow-up Leukocytosis. Patient complaining of productive cough even prior to admission. Denies fever and shortness of breath. No UTI symptoms and diarrhea. Discussed with RN, did not sleep well because of nursing care Objective Vitals Vital Signs Date Time Temp Pulse Resp B/P (MAP) Pulse Ox O2 Delivery O2 Flow Rate FiO2 02/07/17 04:28 98.8 81 18 135/63 (87) 96 02/06/17 23:29 97.6 98 18 116/64 (81) 92 02/06/17 20:10 97.4 84 18 124/70 (88) 97 02/06/17 20:00 94 02/06/17 16:00 96.0 81 18 113/64 (80) 93 02/06/17 13:15 98.2 79 15 128/60 (82) 94 Nasal Cannula 3 02/06/17 13:00 78 15 124/57 (79) 94 Nasal Cannula 3 02/06/17 12:45 80 17 136/63 (87) 92 Nasal Cannula 3 02/06/17 12:30 83 18 122/58 (79) 92 Nasal Cannula 3 02/06/17 12:15 79 22 168/71 (103) 94 Simple Mask 6 02/06/17 12:13 98.4 81 20 161/72 (101) 92 Simple Mask 6 I/O 02/06/17 02/06/17 02/06/17 02/07/17 02/07/17 02/07/17 07:00 15:00 23:00 07:00 15:00 23:00 Intake Total 1150 ml 400 ml 100 ml 840 ml Output Total 300 ml 75 ml 275 ml Balance 850 ml 325 ml 100 ml 565 ml Intake Oral 0 ml 840 ml IV Total 1150 ml 100 ml Other 400 ml Output Urine Total 300 ml 275 ml Estimated Blood Loss 75 ml # Voids 0 # Bowel Movements 0 0 Result Diagram: 02/07/17 0457 02/07/17 0457 Imaging Last Impressions Hip X-Ray 02/06/17 0000 Signed Impressions: Service Date/Time: Monday, February 06, 2017 11:40 - CONCLUSION: Status post ORIF of a comminuted intertrochanteric fracture. Lobo Woods MD Hip and Pelvis X-Ray 02/05/17 1419 Signed Impressions: Service Date/Time: Sunday, February 05, 2017 14:53 - CONCLUSION: Slightly comminuted intertrochanteric fracture. Lobo Woods MD Chest X-Ray 02/05/17 1419 Signed Impressions: Service Date/Time: Sunday, February 05, 2017 14:56 - CONCLUSION: 1. Compensated cardiomegaly. 2. Minimal left lung base airspace disease, likely atelectasis. Sal Birmingham MD Objective Remarks GENERAL: This is a well-nourished, well-developed patient, in no distress. SKIN: No rashes, ecchymoses or lesions. Cool and dry. CARDIOVASCULAR: Regular rate and rhythm without murmurs, gallops, or rubs. S1 and S2 no S3 or S4 no heave or thrill or rub or gallop-- rate is paced RESPIRATORY: Clear to auscultation. Breath sounds equal bilaterally. No wheezes , rales, or rhonchi. GASTROINTESTINAL: Abdomen soft, non-tender, nondistended. No guarding. MUSCULOSKELETAL: Extremities without clubbing, cyanosis, or edema. No joint tenderness, effusion, or edema noted. No calf tenderness. Negative Homans sign bilaterally. Tender right hip NEUROLOGICAL: Awake and alert. Cranial nerves II through XII intact. Motor and sensory grossly within normal limits. Five out of 5 muscle strength in all muscle groups. Normal speech. Procedures Right hip reduction and intramedullary nail fixation A/P Problem List: (1) Intertrochanteric fracture of right femur ICD Code: S72.141A - Displaced intertrochanteric fracture of right femur, initial encounter for closed fracture Assessment and Plan Right intertrochanteric comminuted hip fracture status post repair. Stable. Continue postoperative care with pain management with Lortab and morphine sulfate, wound care, physical therapy DVT prophylaxis with Lovenox Coronary artery disease status post CABG. Stable continue metoprolol and aspirin when okay with orthopedic surgery Chronic atrial fibrillation. Stable continue metoprolol and aspirin as above. Leukocytosis with abnormal chest x-ray. Patient has community-acquired pneumonia. Patient already received IV vancomycin and currently on Ancef because of surgery. We'll start Levaquin and obtain sputum culture, pneumococcal and legionella urinary antigen Hyperglycemia. A1c 5.7 Discharge Planning DC planning per orthopedic surgery Problem Qualifiers (1) Intertrochanteric fracture of right femur: Qualified Codes: S72.141A - Displaced intertrochanteric fracture of right femur , initial encounter for closed fracture Thang Toscano MD Feb 07, 2017 08:42
[2017-02-07] MEDS ORDERED: BENZONATATE 100 MG CAP PO PRN (08:45)
[2017-02-07] MEDS ORDERED: LEVOFLOXACIN 500 MG PREMIX INJ 100 ML IV ONE (08:45)
[2017-02-07] MEDS: CALCIUM/VITAMIN D 250 MG/125 U TAB PO SCH ×3 (08:59→16:49)
[2017-02-07] MEDS: guaiFENesin E.R. 600 MG TAB PO SCH ×2 (08:59→20:03)
[2017-02-07] MEDS: ACETAMINOPHEN/HYDROcodone 325 MG/7.5 MG TAB PO PRN ×4 (09:00→21:39)
[2017-02-07] MEDS: CHOLECALCIFEROL (VIT D3) 5000 UNIT CAP PO SCH (09:00)
[2017-02-07] MEDS: SENNOSIDES 8.6 MG TAB PO PRN (09:00)
[2017-02-07] MEDS: SODIUM CHLORIDE 0.9% FLUSH 5 ML FLUSH IVF SCH ×2 (09:00→20:03)
[2017-02-07] MEDS: METOPROLOL TARTRATE 25 MG TAB PO SCH ×2 (09:00→20:03)
[2017-02-07] MEDS: DOCUSATE SODIUM 50 MG/SENNA 8.6 MG TAB PO SCH ×2 (09:00→20:03)
[2017-02-07] MEDS: MAGNESIUM HYDROXIDE SUSP 30 ML CUP PO PRN (09:00)
--- NOTE | 2017-02-07 09:40 | PD.ORT.PN ---
Subjective Subjective Remarks no issues. no CP/SOB Objective Vitals Vital Signs Date Time Temp Pulse Resp B/P (MAP) Pulse Ox O2 Delivery O2 Flow Rate FiO2 02/07/17 08:00 97.9 88 18 123/66 (85) 91 02/07/17 04:28 98.8 81 18 135/63 (87) 96 02/06/17 23:29 97.6 98 18 116/64 (81) 92 02/06/17 20:10 97.4 84 18 124/70 (88) 97 02/06/17 20:00 94 02/06/17 16:00 96.0 81 18 113/64 (80) 93 02/06/17 13:15 98.2 79 15 128/60 (82) 94 Nasal Cannula 3 02/06/17 13:00 78 15 124/57 (79) 94 Nasal Cannula 3 02/06/17 12:45 80 17 136/63 (87) 92 Nasal Cannula 3 02/06/17 12:30 83 18 122/58 (79) 92 Nasal Cannula 3 02/06/17 12:15 79 22 168/71 (103) 94 Simple Mask 6 02/06/17 12:13 98.4 81 20 161/72 (101) 92 Simple Mask 6 I/O 02/06/17 02/06/17 02/06/17 02/07/17 02/07/17 02/07/17 07:00 15:00 23:00 07:00 15:00 23:00 Intake Total 1150 ml 400 ml 100 ml 840 ml Output Total 300 ml 75 ml 275 ml Balance 850 ml 325 ml 100 ml 565 ml Intake Oral 0 ml 840 ml IV Total 1150 ml 100 ml Other 400 ml Output Urine Total 300 ml 275 ml Estimated Blood Loss 75 ml # Voids 0 # Bowel Movements 0 0 Result Diagram: 02/07/177 02/07/17456 Imaging Last 24 hours Impressions Hip and Pelvis X-Ray 02/05/171418 Signed Impressions: Service Date/Time: Sunday, February 05, 2017 14:53 - CONCLUSION: Slightly comminuted intertrochanteric fracture. Lobo Woods MD Chest X-Ray 02/05/171418 Signed Impressions: Service Date/Time: Sunday, February 05, 2017 14:56 - CONCLUSION: 1. Compensated cardiomegaly. 2. Minimal left lung base airspace disease, likely atelectasis. Sal Birmingham MD Objective Remarks Right lower extremity: Pain to palpation of hip and with any movement of hip. distally he has intact sensation with good capillary refills active dorsiflexion plantar flexion of foot. Left lower extremity full range of motion neurovascularly intact Assessment & Plan Assessment and Plan POD 1- right hip IMN no issues. pain controlled. dressing changes per order wbat postop abx lovenox dc planning George Galdamez Jr., MD Feb 07, 2017 09:40
[2017-02-07] MEDS: ENOXAPARIN SODIUM 30 MG/0.3 ML SYRINGE SQ SCH (11:14)
[2017-02-08 07:50] VITALS: BP 115/66; PULSE 83; RESP 18; TEMP 96.4; O2SAT 95
[2017-02-08] MEDS: SODIUM CHLORIDE 0.9% FLUSH 5 ML FLUSH IVF SCH (08:04)
[2017-02-08] MEDS: guaiFENesin E.R. 600 MG TAB PO SCH (08:05)
[2017-02-08] MEDS: CHOLECALCIFEROL (VIT D3) 5000 UNIT CAP PO SCH (08:05)
[2017-02-08] MEDS: METOPROLOL TARTRATE 25 MG TAB PO SCH (08:05)
[2017-02-08] MEDS: CALCIUM/VITAMIN D 250 MG/125 U TAB PO SCH ×2 (08:05→13:27)
[2017-02-08] MEDS: ACETAMINOPHEN/HYDROcodone 325 MG/7.5 MG TAB PO PRN ×2 (08:06→13:27)
[2017-02-08] MEDS: DOCUSATE SODIUM 50 MG/SENNA 8.6 MG TAB PO SCH (08:06)
[2017-02-08] MEDS ORDERED: LEVOFLOXACIN 750 MG TAB PO SCH (09:00)
--- NOTE | 2017-02-08 09:44 | HHI.DS ---
Discharge Summary Admission Date Feb 05, 2017 at 16:07 Discharge Date: Feb 08, 2017 Admitting Diagnosis right intertrochanteric hip fracture (1) Intertrochanteric fracture of right femur ICD Code: S72.141A - Displaced intertrochanteric fracture of right femur, initial encounter for closed fracture Diagnosis: Principal Procedures Right hip reduction and intramedullary nail fixation Brief History - From Admission Patient is an 81-year-old male with history of atrial fibrillation, coronary artery disease status post coronary artery bypass graft, on aspirin presents TO THE emergency department via EMS for evaluation of 8 out of 10 right hip pain. Patient describes the pain constant worsened by any attempt of movement. Onset after the patient [place] curb [place] and fell onto the concrete. He denies hitting his head or loss of consciousness. He has not been ambulatory since the incident. He denies any numbness or tingling of the extremities. He states he drank a milkshake just before arrival. He is unsure of the last date of his tetanus immunization. HIS primary care physician is Dr. Restrepo AND his sales product specialist is Dr. CORRAL. CBC/BMP: 02/07/17 0457 02/07/17 0457 Significant Findings Laboratory Tests Test 02/05/17 14:30 02/05/17 16:15 02/06/17 03:50 02/06/17 04:45 White Blood Count 12.2 TH/MM3 (4.0-11.0) 15.7 TH/MM3 (4.0-11.0) Monocytes (%) (Auto) 9.8 % (0.0-8.0) 11.9 % (0.0-8.0) Eosinophils (%) (Auto) 6.4 % (0.0-4.0) Monocytes # (Auto) 1.2 TH/MM3 (0-0.9) 1.9 TH/MM3 (0-0.9) Eosinophils # (Auto) 0.8 TH/MM3 (0-0.4) Monocytes % 9 % (0-8) Neutrophils # (Manual) 7.9 TH/MM3 (1.8-7.7) Estimat Glomerular Filtration Rate 88 ML/MIN (>89) Urine Turbidity HAZY (CLEAR) Urine Mucus FEW /lpf (OCC) Red Blood Count 4.08 MIL/MM3 (4.50-5.90) Neutrophils (%) (Auto) 70.8 % (16.0-70.0) Neutrophils # (Auto) 11.1 TH/MM3 (1.8-7.7) Random Glucose 150 MG/DL (74-106) Total Protein 6.2 GM/DL (6.4-8.2) Albumin 2.9 GM/DL (3.4-5.0) Calcium Level 7.7 MG/DL (8.5-10.1) Total Bilirubin 1.1 MG/DL (0.2-1.0) Test 02/07/17 04:57 White Blood Count 19.9 TH/MM3 (4.0-11.0) Red Blood Count 3.89 MIL/MM3 (4.50-5.90) Hemoglobin 12.9 GM/DL (13.0-17.0) Hematocrit 37.7 % (39.0-51.0) Neutrophils (%) (Auto) 74.3 % (16.0-70.0) Monocytes (%) (Auto) 13.6 % (0.0-8.0) Neutrophils # (Auto) 14.8 TH/MM3 (1.8-7.7) Monocytes # (Auto) 2.7 TH/MM3 (0-0.9) Band Neutrophils % 12 % (0-6) Monocytes % 17 % (0-8) Neutrophils # (Manual) 13.7 TH/MM3 (1.8-7.7) Myelocytes 2 % (0-0) Random Glucose 168 MG/DL (74-106) Calcium Level 8.1 MG/DL (8.5-10.1) Imaging Last Impressions Hip X-Ray 02/06/17 0000 Signed Impressions: Service Date/Time: Monday, February 06, 2017 11:40 - CONCLUSION: Status post ORIF of a comminuted intertrochanteric fracture. Lobo Woods MD Hip and Pelvis X-Ray 02/05/17 1419 Signed Impressions: Service Date/Time: Sunday, February 05, 2017 14:53 - CONCLUSION: Slightly comminuted intertrochanteric fracture. Lobo Woods MD Chest X-Ray 02/05/17 1419 Signed Impressions: Service Date/Time: Sunday, February 05, 2017 14:56 - CONCLUSION: 1. Compensated cardiomegaly. 2. Minimal left lung base airspace disease, likely atelectasis. Sal Birmingham MD PE at Discharge GENERAL: This is a well-nourished, well-developed patient, in no distress. SKIN: No rashes, ecchymoses or lesions. Cool and dry. CARDIOVASCULAR: Regular rate and rhythm without murmurs, gallops, or rubs. S1 and S2 no S3 or S4 no heave or thrill or rub or gallop-- rate is paced RESPIRATORY: Clear to auscultation. Breath sounds equal bilaterally. No wheezes , rales, or rhonchi. GASTROINTESTINAL: Abdomen soft, non-tender, nondistended. No guarding. MUSCULOSKELETAL: Extremities without clubbing, cyanosis, or edema. No joint tenderness, effusion, or edema noted. No calf tenderness. Negative Homans sign bilaterally. Tender right hip NEUROLOGICAL: Awake and alert. Cranial nerves II through XII intact. Motor and sensory grossly within normal limits. Five out of 5 muscle strength in all muscle groups. Normal speech. Hospital Course Right intertrochanteric comminuted hip fracture status post repair. Stable. Continue postoperative care with pain management with Lortab and morphine sulfate, wound care, physical therapy DVT prophylaxis with Lovenox Coronary artery disease status post CABG. Stable continue metoprolol and aspirin when okay with orthopedic surgery Chronic atrial fibrillation. Stable continue metoprolol and aspirin as above. Leukocytosis with abnormal chest x-ray. Patient has community-acquired pneumonia. Patient already received IV vancomycin and currently on Ancef because of surgery. Stable continue Levaquin and ordered sputum culture, pneumococcal and legionella urinary antigen. Follow-up results as well as pending CBC Urinary retention likely related to inactivity, constipation and narcotic. He is now stooling. Ariza care. Obtain repeat urinalysis. Consider Flomax Hyperglycemia. A1c 5.7 Pt Condition on Discharge: Stable Discharge Disposition: Rehab Inpatient Discharge Time: > 30 minutes Discharge Instructions DIET: Follow Instructions for: Heart Healthy Diet Activities you can perform: Regular-No Restrictions Activities to Avoid: Driving Follow up Referrals: Orthopedics - 2 Weeks @ [facility] with Nabor Morris MD PCP Follow-up - 1 Week New Orders: X-RAY CHEST PA & LAT - 6 Weeks New Medications: Calcium Carbonate-Vitamin D (Calcium 600+D 200) 600-200 Mg-Unit Tab 1 TAB PO BID for Nutritional Supplement for 30 Days, #60 TAB 0 Refills Cholecalciferol (Vitamin D3) 2,000 Unit Cap 2000 UNITS PO DAILY for Nutritional Supplement, #56 CAP 0 Refills Ergocalciferol (Ergocalciferol) 50,000 Unit Cap 85697 UNITS PO Q7D for Nutritional Supplement, #56 CAP Hydrocodone-Acetaminophen (Hydrocodone-Acetaminophen) 7.5 Mg-325 Mg Tab 1 TAB PO Q4H PRN for PAIN, #60 TAB 0 Refills Rivaroxaban (Xarelto) 10 Mg Tab 10 MG PO DAILY for Blood Clot Prevention for 14 Days, #14 TAB 0 Refills Walker/Adult/Folding (Walker/Adult/Folding) 1 Mis Mis EA .ROUTE DIRECTED, #1 0 Refills Levofloxacin (Levaquin) 750 Mg Tablet 750 MG PO DAILY for Infection, #6 TAB stop date 02/14/17 Continued Medications: Aspirin (Aspirin Low Dose) 81 Mg Chew 81 MG CHEW DAILY, TAB 0 Refills if ok with orthopedic surgery Metoprolol Tartrate (Metoprolol Tartrate) 25 Mg Tab Unknown Dose PO DAILY, TAB 0 Refills Additional Information F/u pending CBC and UA Thang Toscano MD Feb 08, 2017 09:44
[2017-02-08 11:25] VITALS: BP 125/58; PULSE 77; RESP 18; TEMP 97.7; O2SAT 96
[2017-02-08] MEDS: ENOXAPARIN SODIUM 30 MG/0.3 ML SYRINGE SQ SCH (11:28)
[2017-02-08 11:55] LABS: BACTERIA, URINE OCC /hpf; BLOOD, URINE MOD (NEG); COMMENT (UR) CULTURE INDICATED; CULTURE IF INDICATED CULTURE INDICATED; GLUCOSE,URINE 1000 mg/dL (NEG); HYALINE CAST, URINE 1 /lpf (RARE); KETONE, URINE TRACE mg/dL (NEG); MUCUS URINE FEW /lpf (OCC); NITRITE,URINE NEG (NEG); SQUAMOUS EPITHELIAL CELL URINE <1 /hpf (0-5); URINE COLOR YELLOW (YELLW/STRAW)
[2017-02-08 12:44] VITALS: PULSE 82
[2017-02-08 16:55] LABS: AUTOMATED NEUTROPHIL # 15.8 TH/MM3 (1.8-7.7); BASOPHIL % 0.1 % (0.0-2.0); EOSINOPHIL # 0.3 TH/MM3 (0-0.4); EOSINOPHIL % 1.2 % (0.0-4.0); LYMPH % 12.7 % (9.0-44.0); LYMPHOCYTE # 2.8 TH/MM3 (1.0-4.8); MEAN CORPUSCULAR HEMOGLOBIN 32.6 PG (27.0-34.0); MEAN CORPUSCULAR HGB CONC 33.6 % (32.0-36.0); MONO % 13.6 % (0.0-8.0); NEUT % 72.4 % (16.0-70.0); PLATELET COUNT 210 TH/MM3 (150-450); RED BLOOD COUNT 3.82 MIL/MM3 (4.50-5.90); RED CELL DISTRIBUTION WIDTH 12.5 % (11.6-17.2); WHITE BLOOD COUNT 21.8 TH/MM3 (4.0-11.0)
[2017-02-08 16:59] LABS: HEMO FLAGS AUTO DIFF
[2017-02-08 18:51] LABS: BANDS 2 % (0-6); EOSINOPHILS 1 % (0-4); MYELOCYTES 3 % (0-0); NEUTROPHIL # MANUAL DIFF 16.8 TH/MM3 (1.8-7.7); POLYS (SEG NEUTROPHILS) 71 % (16-70); PROMYELOCYTES 1 % (0-0); WBC DIFF SAMPLE 100
[2017-02-08 18:53] LABS: PLATELET ESTIMATE SMEAR NORMAL (NORMAL); PLATELET MORPHOLOGY NORMAL (NORMAL); SCAN/DIFF FINAL DIFF MANUAL
== END 2017-02-08 14:11 | DRG 480 ==
LOC: NEPC 14:07 → NEDA 16:07 → N06A 18:04
PROVIDERS: ADMIT Internal Medicine; ATTEND Internal Medicine
PROC: 0QS604Z Reposition Right Upper Femur with Internal Fixation Device, Open Approach (ICD-10-PCS; principal; 2017-02-06 11:00)
DX: S72.141A Displaced intertrochanteric fracture of right femur, initial encounter for closed fracture (principal); J18.9 Pneumonia, unspecified organism; I48.2 Chronic atrial fibrillation; Z95.1 Presence of aortocoronary bypass graft; W10.1XXA Fall (on)(from) sidewalk curb, initial encounter; Y92.481 Parking lot as the place of occurrence of the external cause; K59.00 Constipation, unspecified; R33.9 Retention of urine, unspecified; R73.9 Hyperglycemia, unspecified; I25.10 Atherosclerotic heart disease of native coronary artery without angina pectoris; Z95.0 Presence of cardiac pacemaker; Z79.82 Long term (current) use of aspirin; Z95.3 Presence of xenogenic heart valve; Z85.828 Personal history of other malignant neoplasm of skin; Z87.01 Personal history of pneumonia (recurrent)
CPT/HCPCS: 71010; 73502; 76000; 80048; 80053; 81001; 82306; 83036; 83735; 84100; 84439; 84443; 85007; 85025; 85027; 85610; 85730; 86850; 86900; 86901; 87086; 87449; 87641; 90471; 90714; 93005; 94150; 94664; 96374; 96375; C1713; J0131; J0690; J1580; J1650; J1956; J2270; J2405; J3370; J7030; J7050; J7613

== ENCOUNTER → 2017-03-13 | Outpatient (CLI) | payer MEDICARE ==
[~2017-03-13] MED LIST changes: -ASPI81 PO; +ASPI81CH6 CHEW; +CALCTAB19 PO; +COMMODE 3-IN-11 MIS; +GETGO ROLLING W1 MI1; -GLUC250C5 PO; +HYDR-3580 PO; +METO25TA3 PO; +PERI PO; +TAMS5CAP PO; -TOBRO LEFT EYE; +VITA2000 PO; -WARF3TAB PO; -[UNRECOGNIZED DRUG - CODE] PO
[2017-03-13 16:37] LABS: BILIRUBIN, URINE NEG (NEG); BLOOD, URINE NEG (NEG); CALCIUM OXALATE CRYSTALS,URINE RARE /hpf; GLUCOSE,URINE NEG (NEG); KETONE, URINE NEG (NEG); MUCUS URINE FEW /lpf (OCC); NITRITE,URINE NEG (NEG); PH, URINE 5.5 (5.0-8.5); URINE COLOR YELLOW (YELLW/STRAW); URINE LEUKOCYTE ESTERASE NEG (NEG)
[2017-03-13 16:40] LABS: ALBUMIN 3.4 GM/DL (3.4-5.0); ALT (GPT) 16 U/L (12-78); AST (GOT) 23 U/L (15-37); AUTOMATED NEUTROPHIL # 6.4 TH/MM3 (1.8-7.7); BASOPHIL # 0.1 TH/MM3 (0-0.2); BASOPHIL % 0.9 % (0.0-2.0); BICARBONATE 29.4 MEQ/L (21.0-32.0); BLOOD UREA NITROGEN 19 MG/DL (7-18); CALCIUM 8.9 MG/DL (8.5-10.1); CHLORIDE 105 MEQ/L (98-107); CREATININE 0.77 MG/DL (0.60-1.30); EOSINOPHIL # 0.5 TH/MM3 (0-0.4); EOSINOPHIL % 5.4 % (0.0-4.0); GLOMERULAR FILTRATION RATE 97 ML/MIN (>89); GLUCOSE,RANDOM 122 MG/DL (74-106); HEMATOCRIT 44.2 % (39.0-51.0); HEMOGLOBIN 14.8 GM/DL (13.0-17.0); LYMPH % 20.1 % (9.0-44.0); LYMPHOCYTE # 2.1 TH/MM3 (1.0-4.8); MEAN CORPUSCULAR HEMOGLOBIN 34.2 PG (27.0-34.0); MEAN CORPUSCULAR HGB CONC 33.5 % (32.0-36.0); MEAN PLATELET VOLUME 9.2 FL (7.0-11.0); MONO % 11.3 % (0.0-8.0); MONOCYTE # 1.2 TH/MM3 (0-0.9); NEUT % 62.3 % (16.0-70.0); PLATELET COUNT 259 TH/MM3 (150-450); RED BLOOD COUNT 4.33 MIL/MM3 (4.50-5.90); SODIUM (NA) 140 MEQ/L (136-145); WHITE BLOOD COUNT 10.2 TH/MM3 (4.0-11.0)
[2017-03-13 16:50] LABS: ALKALINE PHOSPHATASE 150 U/L (45-117); TOTAL BILIRUBIN ADULT 0.6 MG/DL (0.2-1.0); TOTAL PROTEIN 7.2 GM/DL (6.4-8.2)
== END ==
LOC: PLAB 11:45
DX: I25.10 Atherosclerotic heart disease of native coronary artery without angina pectoris (principal); R35.0 Frequency of micturition; R53.83 Other fatigue
CPT/HCPCS: 36415; 80053; 81001; 84443; 85025

== ENCOUNTER 2018-02-01 23:59 | Inpatient (IN) ==
[2018-02-02 00:49] LABS: Baso # (Auto) 0.3 th/mm3 (0.0-0.2); Baso % (Auto) 1.3 % (0.0-2.0); Eos # (Auto) 0.1 th/mm3 (0.0-0.4); Eos % (Auto) 0.3 % (0.0-4.0); Hematocrit 47.7 % (39.0-51.0); Hemoglobin 16.2 gm/dL (13.0-17.0); Lymph # (Auto) 3.2 th/mm3 (1.0-4.8); Lymph % (Auto) 14.5 % (9.0-44.0); Mean Corpuscular Hemoglobin 33.5 pg (27.0-34.0); Mean Corpuscular Volume 98.6 fL (80.0-100.0); Mean Platelet Volume 9.1 fL (7.0-11.0); Mono # (Auto) 1.9 th/mm3 (0.0-0.9); Mono % (Auto) 8.3 % (0.0-8.0); Neut # (Auto) 16.9 th/mm3 (1.8-7.7); Neut % (Auto) 75.6 % (16.0-70.0); Platelet Count 259 th/mm3 (150-450); Red Blood Count 4.84 mil/mm3 (4.50-5.90); Red Cell Distribution Width 12.9 % (11.6-17.2); White Blood Count 22.4 th/mm3 (4.0-11.0)
--- NOTE | 2018-02-02 00:56 | CT ---
EXAM DATE: 02/02/2018 12:49 AM EST AGE/SEX: 82 years / Male INDICATIONS: Altered mental status. CLINICAL DATA: This is the patient's initial encounter. Patient reports that signs and symptoms have been present for 1 day and indicates a pain score of Nonresponsive. MEDICAL/SURGICAL HISTORY: Cardiovascular disease. Pacemaker. Aortic valve replacement RADIATION DOSE: 66.34 CTDI (mGy) COMPARISON: No prior exams available for comparison. TECHNIQUE: CT of the head without contrast. Using automated exposure control and adjustment of the mA and/or kV according to patient size, radiation dose was kept as low as reasonably achievable to ob tain optimal diagnostic quality images. DICOM format image data is available electronically for revi ew and comparison. FINDINGS: Cerebrum: The ventricles are normal for age. No evidence of midline shift, mass lesion, hemorrhage or acute infarction. No extraaxial fluid collections are seen. Posterior Fossa: The cerebellum and brainstem are intact. The 4th ventricle is midline. The cerebe llopontine angle is unremarkable. Extracranial: The visualized portion of the orbits is intact. Skull: The calvaria is intact. No evidence of skull fracture. CONCLUSION: 1. Negative CT Head non contrast except diffuse age-appropriate atrophy. . Electronically signed by: Lobo Woods MD 02/02/2018 12:55 AM EST
[2018-02-02 01:06] LABS: Alanine Aminotransferase 25 U/L (12-78); Albumin 3.5 g/dL (3.4-5.0); Anion Gap 10 meq/L (5-15); Aspartate Aminotransferase 45 U/L (15-37); Blood Urea Nitrogen 25 mg/dL (7-18); Calcium 8.5 mg/dL (8.5-10.1); Carbon Dioxide 23.3 meq/L (21.0-32.0); Chloride 104 meq/L (98-107); Glomerular Filtration Rate Greater Than 89 mL/min (>89); Glucose,Random 160 mg/dL (74-106); Magnesium 1.8 mg/dL (1.5-2.5); Potassium 4.2 meq/L (3.5-5.1); Sodium 137 meq/L (136-145)
[2018-02-02 01:10] LABS: Alkaline Phosphatase 91 U/L (45-117); Total Protein 7.3 g/dL (6.4-8.2)
[2018-02-02 01:22] LABS: Troponin I 2.84 ng/mL (0.02-0.05)
[2018-02-02 01:24] LABS: Bilirubin,Urine Negative (Negative); Clarity,Urine Clear (Clear); Color,Urine Yellow (Yellw/Straw); Glucose,Urine (UA) 50 mg/dL (Negative); Leukocyte Esterase,Urine Negative (Negative); Mucus,Urine Few /lpf (Occasional); Nitrite,Urine Negative (Negative); Specific Gravity,Urine 1.016 (1.002-1.035)
[2018-02-02] MEDS ORDERED: Bisacodyl 10 MG Supp RECTAL PRN (01:59)
[2018-02-02] MEDS ORDERED: Sodium Chloride 0.9% 2 ML Flush PRN IV.FLUSH (02:06)
--- NOTE | 2018-02-02 02:39 | CT ---
EXAM DATE: 02/02/2018 2:32 AM EST AGE/SEX: 82 years / Male INDICATIONS: Low back pain. Compression fracture of L4. CLINICAL DATA: This is the patient's initial encounter. Patient reports that signs and symptoms have been present for 1 day and indicates a pain score of 10/10. MEDICAL/SURGICAL HISTORY: Cardiovascular disease. Carcinoma, skin cancer. Pacemaker. Aortic valve replacement. RADIATION DOSE: 38.68 CTDI (mGy) COMPARISON: [facility], CT LUMBAR SPINE W/O CONTRAST, 01/30/2018. . TECHNIQUE: Contiguous axial images were acquired with a multirow detector CT scanner without contras t. Multiplanar reconstructions in the sagittal and coronal plane were also performed. Using automate d exposure control and adjustment of the mA and/or kV according to patient size, radiation dose was k ept as low as reasonably achievable to obtain optimal diagnostic quality images. DICOM format image data is available electronically for review and comparison. FINDINGS: Vertebrae: Normal vertebral body height except for loss of height of the L4-5 body superiorly. Ther e is endplate cupping superior L4. The superior endplate of L4 is distracted posteriorly by 6 mm Alignment: Normal. No subluxation. T12-L1: The thecal sac has a normal diameter. No evidence of disc bulge or protrusion. The neural foramina are patent bilaterally. L1-L2: The thecal sac has a normal diameter. No evidence of disc bulge or protrusion. The neural f oramina are patent bilaterally. L2-L3: The thecal sac has a normal diameter. No evidence of disc bulge or protrusion. The neural f oramina are patent bilaterally. L3-L4: The thecal sac has a normal diameter. No evidence of disc bulge or protrusion. The neural f oramina are patent bilaterally. L4-L5: The thecal sac has a normal diameter. No evidence of disc bulge or protrusion. The neural f oramina are patent bilaterally. L5-S1: The thecal sac has a normal diameter. No evidence of disc bulge or protrusion. The neural f oramina are patent bilaterally. CONCLUSION: 1. Mild compression deformity of the L4 vertebral body with slight retropulsion of the superior endp late by 6 mm. No other fractures are identified. There is also a coronal fracture through the anterio r third of the L4 vertebral body without displacement. No interval change since the . Electronically signed by: Lobo Woods MD 02/02/2018 2:38 AM EST
--- NOTE | 2018-02-02 02:42 | ED ---
HPI General Chief Complaint: Altered Mental Status Stated Complaint: Altered state Time Seen by Provider: 02/02/18 00:32 Source: family () and EMS Mode of arrival: EMS Limitations: altered mental status History of Present Illness HPI narrative: 82-year-old male was brought to the emergency room by EMS after his found him to have progressive confusion and altered mental status today. is the one who is giving all the history and says that patient developed acute lower back pain after he rolled off the bed 1 week ago. They went to the urgent care 3 days back where a CAT scan of his lower back was done and compression fracture of L4 was diagnosed. Patient at that time was discharged home on baclofen, prednisone, meloxicam and intranasal calcitonin. He has been taking the medication as prescribed since then. The baclofen is twice a day which she has been taking regularly. Yesterday at 2 PM she noticed that he had started to get confused and answering questions out of context. Last night she was having hard time waking him up when she called 911. When EMS arrived patient was a GCS of 12. Blood sugar was 138. Vital signs were otherwise stable. Upon arrival and when I went to see the patient he was GCS of 14. The says this is more his baseline. He was complaining of low back pain but otherwise no other complaints. says that he has been urinating frequently. Related Data Home Medications Medication Instructions Recorded Confirmed aspirin [Aspir-81] 81 mg PO DAILY 02/02/18 02/02/18 calcitonin (salmon) 1 spray INTRANASAL (ALT) DAILY 02/02/18 02/02/18 meloxicam 15 mg PO DAILY 02/02/18 02/02/18 metoprolol tartrate 25 mg PO BID 02/02/18 02/02/18 prednisone 10 mg PO DIRECTED 02/02/18 02/02/18 Previous Rx's Medication Instructions Recorded hydrocodone-acetaminophen 1 tab PO Q6H PRN #12 tab 02/04/18 phenytoin sodium extended 150 mg PO BID #60 cap 02/04/18 pravastatin 40 mg PO DAILY #30 tab 02/04/18 Allergies Allergy/AdvReac Type Severity Reaction Status Date / Time shellfish derived Allergy Severe Verified 02/08/17 14:44 Sulfa (Sulfonamide Allergy Severe Verified 02/08/17 14:44 Antibiotics) latex AdvReac Unknown Verified 02/05/17 15:20 Review of Systems ROS: all other systems reviewed are negative ON LICENSE OF [facility] Medical History Medical History History of skin cancer (Acute) Hx of cardiac pacemaker (Acute) Surgical History Surgical History Hx of aortic valve replacement (Acute) Hx of heart surgery (Acute) Social History Social History Substance History: No History of Abuse Smoking Status: Former smoker How Often Do You Have a Drink Containing Alcohol: 2 to 4 times a month Recent Travel in [facility] within the Last 8 Weeks: No Recent Out of Country Travel within the Last 8 Weeks: No Immunization History Tetanus Immunization: Unsure Exam Narrative Exam Narrative: GENERAL: Awake, confused, elderly, moderate distress SKIN: Focused skin assessment warm/dry. HEAD: Atraumatic. Normocephalic. EYES: Pupils equal and round. No scleral icterus. No injection or drainage. ENT: No nasal bleeding or discharge. Dry mucous membrane, coated tongue NECK: Trachea midline. No JVD. CARDIOVASCULAR: Regular rate and rhythm. No murmur appreciated. RESPIRATORY: No accessory muscle use. Clear to auscultation. Breath sounds equal bilaterally. GASTROINTESTINAL: Abdomen soft, non-tender, nondistended. Hepatic and splenic margins not palpable. MUSCULOSKELETAL: No obvious deformities. No clubbing. No cyanosis. No edema. NEUROLOGICAL: Awake and confused. No obvious cranial nerve deficits. Motor grossly within normal limits. Normal speech. PSYCHIATRIC: Appropriate mood and affect; insight and judgment normal. Course Initial Documented Vital Signs Temperature 97.7 F 02/02/18 00:10 Pulse Rate 53 L 02/02/18 00:10 Respiratory Rate 18 02/02/18 00:10 Blood Pressure 164/72 H 02/02/18 00:10 Pulse Oximetry 98 02/02/18 00:10 Last Documented Vital Signs Temperature 98.4 F 02/05/18 07:00 Pulse Rate 78 02/05/18 10:00 Respiratory Rate 16 02/05/18 07:00 Blood Pressure 129/81 02/05/18 07:00 Pulse Oximetry 95 02/05/18 08:00 Medical Decision Making MDM Narrative Medical decision making narrative: 2 AM blood test results came back and patient has a critically elevated troponin and critically elevated white blood cell count. Head CT was negative. Based on the history of subacute L4 compression fracture I decided not to put him on heparin at this point. I discussed the case with the tap puller Dr. Burger who was in the department. He examined the patient and thought that patient was stable to go to the hospitalist. I have admitted the patient to [facility] under the hospitalist service was accepted the patient. The was notified about the plan. All her questions were answered by me to the best of my ability. Medical Screen Exam Complete: Yes Emergency Medical Condition: Yes Lab Data Result diagrams: 02/05/18 04:43 02/05/18 04:43 Lab Results 02/02/18 02/02/18 02/02/18 Range/Units 00:35 00:35 00:35 WBC 22.4 H (4.0-11.0) th/mm3 RBC 4.84 (4.50-5.90) mil/mm3 Hgb 16.2 (13.0-17.0) gm/dL Hct 47.7 (39.0-51.0) % MCV 98.6 (80.0-100.0) fL MCH 33.5 (27.0-34.0) pg MCHC 34.0 (32.0-36.0) % RDW 12.9 (11.6-17.2) % Plt Count 259 (150-450) th/mm3 MPV 9.1 (7.0-11.0) fL Prelim Diff (Auto) Slide review pending Neut % (Auto) 75.6 H (16.0-70.0) % Lymph % (Auto) 14.5 (9.0-44.0) % [place] % (Auto) 8.3 H (0.0-8.0) % Eos % (Auto) 0.3 (0.0-4.0) % Baso % (Auto) 1.3 (0.0-2.0) % Neut # (Auto) 16.9 H (1.8-7.7) th/mm3 Lymph # (Auto) 3.2 (1.0-4.8) th/mm3 [place] # (Auto) 1.9 H (0.0-0.9) th/mm3 Eos # (Auto) 0.1 (0.0-0.4) th/mm3 Baso # (Auto) 0.3 H (0.0-0.2) th/mm3 WBC Differential . Diff Scan Auto diff confirmed Differential Comment . ESR (0-20) mm/hr PT (9.8-11.6) sec INR Ratio APTT (23.4-31.7) sec Sodium 137 (136-145) meq/L Potassium 4.2 (3.5-5.1) meq/L Chloride 104 (98-107) meq/L Carbon Dioxide 23.3 (21.0-32.0) meq/L Anion Gap 10 (5-15) meq/L BUN 25 H (7-18) mg/dL Creatinine 0.71 (0.60-1.30) mg/dL Estimated GFR Greater than 89 (>89) mL/min Random Glucose 160 H (74-106) mg/dL Hemoglobin A1c (4.3-6.0) % Calcium 8.5 (8.5-10.1) mg/dL Magnesium 1.8 (1.5-2.5) mg/dL Total Bilirubin 1.2 H (0.2-1.0) mg/dL AST 45 H (15-37) U/L ALT 25 (12-78) U/L Alkaline Phosphatase 91 (45-117) U/L Troponin I 2.84 H* (0.02-0.05) ng/mL C-Reactive Protein (0.00-0.30) mg/dL Total Protein 7.3 (6.4-8.2) g/dL Albumin 3.5 (3.4-5.0) g/dL Triglycerides (42-150) mg/dL Cholesterol (120-200) mg/dL LDL Cholesterol, Calc (0-99) mg/dL HDL Cholesterol (40.0-60.0) mg/dL Cholesterol/HDL Ratio Ratio Vitamin B12 (193-986) pg/mL TSH (0.358-3.740) uIU/mL Urine Color Yellow (Yellw/Straw) Urine Clarity Clear (Clear) Urine pH 6.0 (5.0-8.5) Ur Specific [place] 1.016 (1.002-1.035) Urine Protein Negative (Neg-Trace) mg/dL Urine Glucose (UA) 50 (Negative) mg/dL Urine Ketones Trace H (Negative) mg/dL Urine Occult Blood Negative (Negative) Urine Nitrate Negative (Negative) Urine Bilirubin Negative (Negative) Urine Urobilinogen Less than 2 (Less than 2) mg/dL Ur Leukocyte Esterase Negative (Negative) Urine RBC 2 (0-3) /hpf Urine WBC 1 (0-5) /hpf Urine Mucus Few H (Occasional) /lpf Micro UA Comment Cath-culture not ind Ur Microscopic Review Not Reportable Urine Culture Comments Cath-cult not ind Phenytoin (10.0-20.0) mcg/mL 02/02/18 02/02/18 02/02/18 Range/Units 03:34 05:50 10:16 WBC (4.0-11.0) th/mm3 RBC (4.50-5.90) mil/mm3 Hgb (13.0-17.0) gm/dL Hct (39.0-51.0) % MCV (80.0-100.0) fL MCH (27.0-34.0) pg MCHC (32.0-36.0) % RDW (11.6-17.2) % Plt Count (150-450) th/mm3 MPV (7.0-11.0) fL Prelim Diff (Auto) Neut % (Auto) (16.0-70.0) % Lymph % (Auto) (9.0-44.0) % [place] % (Auto) (0.0-8.0) % Eos % (Auto) (0.0-4.0) % Baso % (Auto) (0.0-2.0) % Neut # (Auto) (1.8-7.7) th/mm3 Lymph # (Auto) (1.0-4.8) th/mm3 [place] # (Auto) (0.0-0.9) th/mm3 Eos # (Auto) (0.0-0.4) th/mm3 Baso # (Auto) (0.0-0.2) th/mm3 WBC Differential Diff Scan Differential Comment ESR (0-20) mm/hr PT 12.5 H (9.8-11.6) sec INR 1.2 Ratio APTT 27.8 31.1 (23.4-31.7) sec Sodium (136-145) meq/L Potassium (3.5-5.1) meq/L Chloride (98-107) meq/L Carbon Dioxide (21.0-32.0) meq/L Anion Gap (5-15) meq/L BUN (7-18) mg/dL Creatinine (0.60-1.30) mg/dL Estimated GFR (>89) mL/min Random Glucose (74-106) mg/dL Hemoglobin A1c (4.3-6.0) % Calcium (8.5-10.1) mg/dL Magnesium (1.5-2.5) mg/dL Total Bilirubin (0.2-1.0) mg/dL AST (15-37) U/L ALT (12-78) U/L Alkaline Phosphatase (45-117) U/L Troponin I 4.21 H* (0.02-0.05) ng/mL C-Reactive Protein (0.00-0.30) mg/dL Total Protein (6.4-8.2) g/dL Albumin (3.4-5.0) g/dL Triglycerides (42-150) mg/dL Cholesterol (120-200) mg/dL LDL Cholesterol, Calc (0-99) mg/dL HDL Cholesterol (40.0-60.0) mg/dL Cholesterol/HDL Ratio Ratio Vitamin B12 (193-986) pg/mL TSH (0.358-3.740) uIU/mL Urine Color (Yellw/Straw) Urine Clarity (Clear) Urine pH (5.0-8.5) Ur Specific [place] (1.002-1.035) Urine Protein (Neg-Trace) mg/dL Urine Glucose (UA) (Negative) mg/dL Urine Ketones (Negative) mg/dL Urine Occult Blood (Negative) Urine Nitrate (Negative) Urine Bilirubin (Negative) Urine Urobilinogen (Less than 2) mg/dL Ur Leukocyte Esterase (Negative) Urine RBC (0-3) /hpf Urine WBC (0-5) /hpf Urine Mucus (Occasional) /lpf Micro UA Comment Ur Microscopic Review Urine Culture Comments Phenytoin (10.0-20.0) mcg/mL 02/02/18 02/02/18 02/02/18 Range/Units 10:16 10:16 12:13 WBC (4.0-11.0) th/mm3 RBC (4.50-5.90) mil/mm3 Hgb (13.0-17.0) gm/dL Hct (39.0-51.0) % MCV (80.0-100.0) fL MCH (27.0-34.0) pg MCHC (32.0-36.0) % RDW (11.6-17.2) % Plt Count (150-450) th/mm3 MPV (7.0-11.0) fL Prelim Diff (Auto) Neut % (Auto) (16.0-70.0) % Lymph % (Auto) (9.0-44.0) % [place] % (Auto) (0.0-8.0) % Eos % (Auto) (0.0-4.0) % Baso % (Auto) (0.0-2.0) % Neut # (Auto) (1.8-7.7) th/mm3 Lymph # (Auto) (1.0-4.8) th/mm3 [place] # (Auto) (0.0-0.9) th/mm3 Eos # (Auto) (0.0-0.4) th/mm3 Baso # (Auto) (0.0-0.2) th/mm3 WBC Differential Diff Scan Differential Comment ESR (0-20) mm/hr PT (9.8-11.6) sec INR Ratio APTT (23.4-31.7) sec Sodium (136-145) meq/L Potassium (3.5-5.1) meq/L Chloride (98-107) meq/L Carbon Dioxide (21.0-32.0) meq/L Anion Gap (5-15) meq/L BUN (7-18) mg/dL Creatinine (0.60-1.30) mg/dL Estimated GFR (>89) mL/min Random Glucose (74-106) mg/dL Hemoglobin A1c 5.5 (4.3-6.0) % Calcium (8.5-10.1) mg/dL Magnesium (1.5-2.5) mg/dL Total Bilirubin (0.2-1.0) mg/dL AST (15-37) U/L ALT (12-78) U/L Alkaline Phosphatase (45-117) U/L Troponin I 3.87 H* (0.02-0.05) ng/mL C-Reactive Protein (0.00-0.30) mg/dL Total Protein (6.4-8.2) g/dL Albumin (3.4-5.0) g/dL Triglycerides 84 (42-150) mg/dL Cholesterol 143 (120-200) mg/dL LDL Cholesterol, Calc 69 (0-99) mg/dL HDL Cholesterol 57.0 (40.0-60.0) mg/dL Cholesterol/HDL Ratio 2.50 Ratio Vitamin B12 (193-986) pg/mL TSH (0.358-3.740) uIU/mL Urine Color (Yellw/Straw) Urine Clarity (Clear) Urine pH (5.0-8.5) Ur Specific [place] (1.002-1.035) Urine Protein (Neg-Trace) mg/dL Urine Glucose (UA) (Negative) mg/dL Urine Ketones (Negative) mg/dL Urine Occult Blood (Negative) Urine Nitrate (Negative) Urine Bilirubin (Negative) Urine Urobilinogen (Less than 2) mg/dL Ur Leukocyte Esterase (Negative) Urine RBC (0-3) /hpf Urine WBC (0-5) /hpf Urine Mucus (Occasional) /lpf Micro UA Comment Ur Microscopic Review Urine Culture Comments Phenytoin (10.0-20.0) mcg/mL 02/02/18 02/02/18 02/03/18 Range/Units 17:32 23:38 05:04 WBC 16.9 H (4.0-11.0) th/mm3 RBC 4.17 L (4.50-5.90) mil/mm3 Hgb 14.2 D (13.0-17.0) gm/dL Hct 41.3 (39.0-51.0) % MCV 99.0 (80.0-100.0) fL MCH 34.1 H (27.0-34.0) pg MCHC 34.4 (32.0-36.0) % RDW 13.0 (11.6-17.2) % Plt Count 204 (150-450) th/mm3 MPV 9.2 (7.0-11.0) fL Prelim Diff (Auto) Neut % (Auto) 62.2 (16.0-70.0) % Lymph % (Auto) 22.3 (9.0-44.0) % [place] % (Auto) 10.9 H (0.0-8.0) % Eos % (Auto) 4.0 (0.0-4.0) % Baso % (Auto) 0.6 (0.0-2.0) % Neut # (Auto) 10.5 H (1.8-7.7) th/mm3 Lymph # (Auto) 3.8 (1.0-4.8) th/mm3 [place] # (Auto) 1.9 H (0.0-0.9) th/mm3 Eos # (Auto) 0.7 H (0.0-0.4) th/mm3 Baso # (Auto) 0.1 (0.0-0.2) th/mm3 WBC Differential . Diff Scan Differential Comment Auto diff final ESR (0-20) mm/hr PT (9.8-11.6) sec INR Ratio APTT 40.4 H D 46.2 H (23.4-31.7) sec Sodium (136-145) meq/L Potassium (3.5-5.1) meq/L Chloride (98-107) meq/L Carbon Dioxide (21.0-32.0) meq/L Anion Gap (5-15) meq/L BUN (7-18) mg/dL Creatinine (0.60-1.30) mg/dL Estimated GFR (>89) mL/min Random Glucose (74-106) mg/dL Hemoglobin A1c (4.3-6.0) % Calcium (8.5-10.1) mg/dL Magnesium (1.5-2.5) mg/dL Total Bilirubin (0.2-1.0) mg/dL AST (15-37) U/L ALT (12-78) U/L Alkaline Phosphatase (45-117) U/L Troponin I (0.02-0.05) ng/mL C-Reactive Protein (0.00-0.30) mg/dL Total Protein (6.4-8.2) g/dL Albumin (3.4-5.0) g/dL Triglycerides (42-150) mg/dL Cholesterol (120-200) mg/dL LDL Cholesterol, Calc (0-99) mg/dL HDL Cholesterol (40.0-60.0) mg/dL Cholesterol/HDL Ratio Ratio Vitamin B12 (193-986) pg/mL TSH (0.358-3.740) uIU/mL Urine Color (Yellw/Straw) Urine Clarity (Clear) Urine pH (5.0-8.5) Ur Specific [place] (1.002-1.035) Urine Protein (Neg-Trace) mg/dL Urine Glucose (UA) (Negative) mg/dL Urine Ketones (Negative) mg/dL Urine Occult Blood (Negative) Urine Nitrate (Negative) Urine Bilirubin (Negative) Urine Urobilinogen (Less than 2) mg/dL Ur Leukocyte Esterase (Negative) Urine RBC (0-3) /hpf Urine WBC (0-5) /hpf Urine Mucus (Occasional) /lpf Micro UA Comment Ur Microscopic Review Urine Culture Comments Phenytoin (10.0-20.0) mcg/mL 02/03/18 02/03/18 02/03/18 Range/Units 05:04 05:04 05:04 WBC (4.0-11.0) th/mm3 RBC (4.50-5.90) mil/mm3 Hgb (13.0-17.0) gm/dL Hct (39.0-51.0) % MCV (80.0-100.0) fL MCH (27.0-34.0) pg MCHC (32.0-36.0) % RDW (11.6-17.2) % Plt Count (150-450) th/mm3 MPV (7.0-11.0) fL Prelim Diff (Auto) Neut % (Auto) (16.0-70.0) % Lymph % (Auto) (9.0-44.0) % [place] % (Auto) (0.0-8.0) % Eos % (Auto) (0.0-4.0) % Baso % (Auto) (0.0-2.0) % Neut # (Auto) (1.8-7.7) th/mm3 Lymph # (Auto) (1.0-4.8) th/mm3 [place] # (Auto) (0.0-0.9) th/mm3 Eos # (Auto) (0.0-0.4) th/mm3 Baso # (Auto) (0.0-0.2) th/mm3 WBC Differential Diff Scan Differential Comment ESR 7 (0-20) mm/hr PT (9.8-11.6) sec INR Ratio APTT (23.4-31.7) sec Sodium 139 (136-145) meq/L Potassium 3.9 (3.5-5.1) meq/L Chloride 106 (98-107) meq/L Carbon Dioxide 25.2 (21.0-32.0) meq/L Anion Gap 8 (5-15) meq/L BUN 17 (7-18) mg/dL Creatinine 0.75 (0.60-1.30) mg/dL Estimated GFR Greater than 89 (>89) mL/min Random Glucose 141 H (74-106) mg/dL Hemoglobin A1c (4.3-6.0) % Calcium 8.1 L (8.5-10.1) mg/dL Magnesium (1.5-2.5) mg/dL Total Bilirubin 1.3 H (0.2-1.0) mg/dL AST 77 H (15-37) U/L ALT 24 (12-78) U/L Alkaline Phosphatase 82 (45-117) U/L Troponin I (0.02-0.05) ng/mL C-Reactive Protein 1.73 H (0.00-0.30) mg/dL Total Protein 6.1 L D (6.4-8.2) g/dL Albumin 3.0 L (3.4-5.0) g/dL Triglycerides (42-150) mg/dL Cholesterol (120-200) mg/dL LDL Cholesterol, Calc (0-99) mg/dL HDL Cholesterol (40.0-60.0) mg/dL Cholesterol/HDL Ratio Ratio Vitamin B12 1226 H (193-986) pg/mL TSH 1.200 (0.358-3.740) uIU/mL Urine Color (Yellw/Straw) Urine Clarity (Clear) Urine pH (5.0-8.5) Ur Specific [place] (1.002-1.035) Urine Protein (Neg-Trace) mg/dL Urine Glucose (UA) (Negative) mg/dL Urine Ketones (Negative) mg/dL Urine Occult Blood (Negative) Urine Nitrate (Negative) Urine Bilirubin (Negative) Urine Urobilinogen (Less than 2) mg/dL Ur Leukocyte Esterase (Negative) Urine RBC (0-3) /hpf Urine WBC (0-5) /hpf Urine Mucus (Occasional) /lpf Micro UA Comment Ur Microscopic Review Urine Culture Comments Phenytoin (10.0-20.0) mcg/mL 02/03/18 02/04/18 02/04/18 Range/Units 05:04 04:25 04:25 WBC 16.8 H (4.0-11.0) th/mm3 RBC 4.18 L (4.50-5.90) mil/mm3 Hgb 14.0 (13.0-17.0) gm/dL Hct 41.4 (39.0-51.0) % MCV 98.9 (80.0-100.0) fL MCH 33.5 (27.0-34.0) pg MCHC 33.9 (32.0-36.0) % RDW 13.0 (11.6-17.2) % Plt Count 188 (150-450) th/mm3 MPV 9.2 (7.0-11.0) fL Prelim Diff (Auto) Neut % (Auto) (16.0-70.0) % Lymph % (Auto) (9.0-44.0) % [place] % (Auto) (0.0-8.0) % Eos % (Auto) (0.0-4.0) % Baso % (Auto) (0.0-2.0) % Neut # (Auto) (1.8-7.7) th/mm3 Lymph # (Auto) (1.0-4.8) th/mm3 [place] # (Auto) (0.0-0.9) th/mm3 Eos # (Auto) (0.0-0.4) th/mm3 Baso # (Auto) (0.0-0.2) th/mm3 WBC Differential Diff Scan Differential Comment ESR (0-20) mm/hr PT (9.8-11.6) sec INR Ratio APTT 51.3 H (23.4-31.7) sec Sodium (136-145) meq/L Potassium (3.5-5.1) meq/L Chloride (98-107) meq/L Carbon Dioxide (21.0-32.0) meq/L Anion Gap (5-15) meq/L BUN (7-18) mg/dL Creatinine (0.60-1.30) mg/dL Estimated GFR (>89) mL/min Random Glucose (74-106) mg/dL Hemoglobin A1c (4.3-6.0) % Calcium (8.5-10.1) mg/dL Magnesium (1.5-2.5) mg/dL Total Bilirubin (0.2-1.0) mg/dL AST (15-37) U/L ALT (12-78) U/L Alkaline Phosphatase (45-117) U/L Troponin I (0.02-0.05) ng/mL C-Reactive Protein (0.00-0.30) mg/dL Total Protein (6.4-8.2) g/dL Albumin (3.4-5.0) g/dL Triglycerides (42-150) mg/dL Cholesterol (120-200) mg/dL LDL Cholesterol, Calc (0-99) mg/dL HDL Cholesterol (40.0-60.0) mg/dL Cholesterol/HDL Ratio Ratio Vitamin B12 (193-986) pg/mL TSH (0.358-3.740) uIU/mL Urine Color (Yellw/Straw) Urine Clarity (Clear) Urine pH (5.0-8.5) Ur Specific [place] (1.002-1.035) Urine Protein (Neg-Trace) mg/dL Urine Glucose (UA) (Negative) mg/dL Urine Ketones (Negative) mg/dL Urine Occult Blood (Negative) Urine Nitrate (Negative) Urine Bilirubin (Negative) Urine Urobilinogen (Less than 2) mg/dL Ur Leukocyte Esterase (Negative) Urine RBC (0-3) /hpf Urine WBC (0-5) /hpf Urine Mucus (Occasional) /lpf Micro UA Comment Ur Microscopic Review Urine Culture Comments Phenytoin Less than 0.4 L (10.0-20.0) mcg/mL 02/04/18 02/04/18 02/05/18 Range/Units 04:25 13:11 04:43 WBC (4.0-11.0) th/mm3 RBC (4.50-5.90) mil/mm3 Hgb (13.0-17.0) gm/dL Hct (39.0-51.0) % MCV (80.0-100.0) fL MCH (27.0-34.0) pg MCHC (32.0-36.0) % RDW (11.6-17.2) % Plt Count (150-450) th/mm3 MPV (7.0-11.0) fL Prelim Diff (Auto) Neut % (Auto) (16.0-70.0) % Lymph % (Auto) (9.0-44.0) % [place] % (Auto) (0.0-8.0) % Eos % (Auto) (0.0-4.0) % Baso % (Auto) (0.0-2.0) % Neut # (Auto) (1.8-7.7) th/mm3 Lymph # (Auto) (1.0-4.8) th/mm3 [place] # (Auto) (0.0-0.9) th/mm3 Eos # (Auto) (0.0-0.4) th/mm3 Baso # (Auto) (0.0-0.2) th/mm3 WBC Differential Diff Scan Differential Comment ESR (0-20) mm/hr PT (9.8-11.6) sec INR Ratio APTT 29.3 D (23.4-31.7) sec Sodium 137 (136-145) meq/L Potassium 3.9 (3.5-5.1) meq/L Chloride 104 (98-107) meq/L Carbon Dioxide 25.3 (21.0-32.0) meq/L Anion Gap 8 (5-15) meq/L BUN 13 (7-18) mg/dL Creatinine 0.59 L (0.60-1.30) mg/dL Estimated GFR Greater than 89 (>89) mL/min Random Glucose 141 H (74-106) mg/dL Hemoglobin A1c (4.3-6.0) % Calcium 8.3 L (8.5-10.1) mg/dL Magnesium (1.5-2.5) mg/dL Total Bilirubin 1.2 H (0.2-1.0) mg/dL AST 53 H (15-37) U/L ALT 24 (12-78) U/L Alkaline Phosphatase 110 (45-117) U/L Troponin I (0.02-0.05) ng/mL C-Reactive Protein (0.00-0.30) mg/dL Total Protein 6.2 L (6.4-8.2) g/dL Albumin 2.8 L (3.4-5.0) g/dL Triglycerides (42-150) mg/dL Cholesterol (120-200) mg/dL LDL Cholesterol, Calc (0-99) mg/dL HDL Cholesterol (40.0-60.0) mg/dL Cholesterol/HDL Ratio Ratio Vitamin B12 (193-986) pg/mL TSH (0.358-3.740) uIU/mL Urine Color (Yellw/Straw) Urine Clarity (Clear) Urine pH (5.0-8.5) Ur Specific [place] (1.002-1.035) Urine Protein (Neg-Trace) mg/dL Urine Glucose (UA) (Negative) mg/dL Urine Ketones (Negative) mg/dL Urine Occult Blood (Negative) Urine Nitrate (Negative) Urine Bilirubin (Negative) Urine Urobilinogen (Less than 2) mg/dL Ur Leukocyte Esterase (Negative) Urine RBC (0-3) /hpf Urine WBC (0-5) /hpf Urine Mucus (Occasional) /lpf Micro UA Comment Ur Microscopic Review Urine Culture Comments Phenytoin 3.8 L (10.0-20.0) mcg/mL 02/05/18 02/05/18 Range/Units 04:43 04:43 WBC 17.6 H (4.0-11.0) th/mm3 RBC 4.33 L (4.50-5.90) mil/mm3 Hgb 14.9 (13.0-17.0) gm/dL Hct 42.7 (39.0-51.0) % MCV 98.8 (80.0-100.0) fL MCH 34.4 H (27.0-34.0) pg MCHC 34.8 (32.0-36.0) % RDW 12.8 (11.6-17.2) % Plt Count 200 (150-450) th/mm3 MPV 9.5 (7.0-11.0) fL Prelim Diff (Auto) Neut % (Auto) (16.0-70.0) % Lymph % (Auto) (9.0-44.0) % [place] % (Auto) (0.0-8.0) % Eos % (Auto) (0.0-4.0) % Baso % (Auto) (0.0-2.0) % Neut # (Auto) (1.8-7.7) th/mm3 Lymph # (Auto) (1.0-4.8) th/mm3 [place] # (Auto) (0.0-0.9) th/mm3 Eos # (Auto) (0.0-0.4) th/mm3 Baso # (Auto) (0.0-0.2) th/mm3 WBC Differential Diff Scan Differential Comment ESR (0-20) mm/hr PT (9.8-11.6) sec INR Ratio APTT (23.4-31.7) sec Sodium 138 (136-145) meq/L Potassium 4.0 (3.5-5.1) meq/L Chloride 103 (98-107) meq/L Carbon Dioxide 26.5 (21.0-32.0) meq/L Anion Gap 9 (5-15) meq/L BUN 11 (7-18) mg/dL Creatinine 0.62 (0.60-1.30) mg/dL Estimated GFR Greater than 89 (>89) mL/min Random Glucose 141 H (74-106) mg/dL Hemoglobin A1c (4.3-6.0) % Calcium 8.6 (8.5-10.1) mg/dL Magnesium (1.5-2.5) mg/dL Total Bilirubin (0.2-1.0) mg/dL AST (15-37) U/L ALT (12-78) U/L Alkaline Phosphatase (45-117) U/L Troponin I (0.02-0.05) ng/mL C-Reactive Protein (0.00-0.30) mg/dL Total Protein (6.4-8.2) g/dL Albumin (3.4-5.0) g/dL Triglycerides (42-150) mg/dL Cholesterol (120-200) mg/dL LDL Cholesterol, Calc (0-99) mg/dL HDL Cholesterol (40.0-60.0) mg/dL Cholesterol/HDL Ratio Ratio Vitamin B12 (193-986) pg/mL TSH (0.358-3.740) uIU/mL Urine Color (Yellw/Straw) Urine Clarity (Clear) Urine pH (5.0-8.5) Ur Specific [place] (1.002-1.035) Urine Protein (Neg-Trace) mg/dL Urine Glucose (UA) (Negative) mg/dL Urine Ketones (Negative) mg/dL Urine Occult Blood (Negative) Urine Nitrate (Negative) Urine Bilirubin (Negative) Urine Urobilinogen (Less than 2) mg/dL Ur Leukocyte Esterase (Negative) Urine RBC (0-3) /hpf Urine WBC (0-5) /hpf Urine Mucus (Occasional) /lpf Micro UA Comment Ur Microscopic Review Urine Culture Comments Phenytoin 3.4 L (10.0-20.0) mcg/mL Imaging Data Radiologist's impression: Chest X-Ray 02/02/18 00:00 CONCLUSION: No definite infiltrate is noted. Left hemidiaphragm is slightly elevated. Previous median sternotomy and pacemaker placement Head CT 02/02/18 00:33 CONCLUSION: 1. Negative CT Head non contrast except diffuse age-appropriate atrophy. . Lumbar Spine CT 02/02/18 02:06 CONCLUSION: 1. Mild compression deformity of the L4 vertebral body with slight retropulsion of the superior endplate by 6 mm. No other fractures are identified. There is also a coronal fracture through the anterior third of the L4 vertebral body without displacement. No interval change since the . Carotid Doppler Study 02/02/18 10:58 CONCLUSION: No evidence of flow-limiting carotid stenosis. Head CT 02/03/18 06:00 CONCLUSION: 1. Stable exam. 2. No evidence of acute infarct, hemorrhage, mass or edema. . ECG Data Attestation: I personally reviewed and interpreted this ECG as follows: Interpretation: Twelve-lead EKG was reviewed by me. Paced rhythm. Heart rate of 49 bpm. Discharge Plan Discharge Disposition Patient Disposition: 30 Still Patient Discharge Condition Condition: Stable Discharge Order Discharge Orders: Discharge Order (Routine); Ordered 02/05/18 Ordered By: Yennifer Bentley Physicians Team ED Provider: Faraz Vazquez Primary Care Provider: UNKNOWN, Attending Provider: Yennifer Bentley Other Providers: Dillon Mckeon Mandeep Status ED Status: Left Department Discharge Information Discharge Date/Time: 02/02/18 03:36
--- NOTE | 2018-02-02 02:42 | P.HPIM ---
History of Present Illness Primary Care Physician: UNKNOWN History of Present Illness: This is an 82-year-old male with PMH of HTN, Hyperlipidemia, CAD s/p CABG, h/o Pacemaker and h/o AVR w/ Bovine Valve 6yrs ago who was brought to the ER by EMS for AMS. Pt's at bedside providing most of history. Per , pt had sudden onset of severe back pain 2 days ago after "rolling over in bed", was seen at Urgent Care and had outpatient CT L-Spine which states showed "L4 compression fracture and bulging disk", pt was prescribed Baclofen, Prednisone and Meloxicam, today notes pt was more lethargic, sleeping all day then later had episode of confusion. Pt is currently awake and alert, oriented to person/place, intermittent episodes of confusion which appear to be baseline. Pt denies chest pain or SOB. Notes ongoing/severe back pain, 10/10, worse w/ movement, no incontinence reported. On arrival, BP 164/72, HR's 53, O2 sat 98% on RA, Afebrile. WBC 22.4. Chemistry essentially unremarkable except for BUN 25. Troponin 2.84. UA negative for UTI. CT Head with no acute findings. notes pt takes baby ASA daily, follows w/ Dr. Mckeon as outpatient, recent Pacemaker check yesterday - Diagnosis (1) Encephalopathy (2) NSTEMI (non-ST elevated myocardial infarction) (3) Lumbar compression fracture (4) Leukocytosis Inpatient Certification: I certify that the inpatient services were ordered in accordance with Medicare regulations governing the order. This includes certification that hospital inpatient services are reasonable and necessary and in the case of services not specified as inpatient-only under 42 CFR 419.22(n), that they are appropriately provided as inpatient services in accordance to with the 2-midnight benchmark under 43 CFR 412.3(e) Estimated Total Length of Stay (Days): 2 Plans for Post Hospital Care: Not yet determined Review of Systems PAST FAMILY HISTORY: Reviewed. No h/o DM or CAD All other systems reviewed negative except as stated in HPI PMFSH - History History Provided By: Family Member - Medical History Medical History: Medical History (Last Updated 02/02/18 @ 00:30 by Osman Hernandez) History of skin cancer Hx of cardiac pacemaker - Surgical History Surgical History: Surgical History (Last Updated 02/02/18 @ 00:30 by Osman Hernandez) Hx of aortic valve replacement Hx of heart surgery - Tobacco History Smoking Status: Former smoker - Alcohol History How Often Do You Have a Drink Containing Alcohol: 2 to 4 times a month - Substance Use History Substance History: No History of Abuse - Travel History Recent Travel in the [place] Within the Last 8 Weeks: No Recent Travel Out of the Country Within the Last 8 Weeks: No - Immunization History Tetanus Immunization: Unsure Medications and Allergies Active Medications: Active Medications Acetaminophen (Tylenol) 650 mg PO Q4H PRN PRN Reason: Temp > 100.4 Al Hydroxide/Mg Hydroxide (Milk Of Magnesia Liq) 30 ml PO Q12H PRN PRN Reason: Mild Constipation Bisacodyl (Dulcolax Supp) 10 mg RECTAL DAILY PRN PRN Reason: SEVERE CONSITIPATION Sodium Chloride (Ns Inj) 1,000 mls @ 100 mls/hr IV.CONT .Q10H TIANNA Lactulose (Lactulose Liq) 30 ml PO DAILY PRN PRN Reason: SEVERE CONSITIPATION Morphine Sulfate (Morphine Inj) 2 mg IV.PUSH Q4H PRN PRN Reason: PAIN 6-10 Ondansetron HCl (Zofran Inj) 4 mg IV.PUSH Q6H PRN PRN Reason: NAUSEA OR VOMITING Senna/Docusate Sodium (Nataliya-Colace) 1 tab PO BID TIANNA Sennosides (Senokot) 17.2 mg PO Q12H PRN PRN Reason: Moderate Constipation Sodium Chloride (Ns Flush) 2 ml IV.FLUSH BID TIANNA Sodium Chloride (Ns Flush) 2 ml IV.FLUSH PRN PRN PRN Reason: FLUSH AFTER USING IV ACCESS Allergies Allergy/AdvReac Type Severity Reaction Status Date / Time shellfish derived Allergy Severe Verified 02/08/17 14:44 Sulfa (Sulfonamide Allergy Severe Verified 02/08/17 14:44 Antibiotics) latex AdvReac Unknown Verified 02/05/17 15:20 Home Medications Medication Instructions Recorded Confirmed Type aspirin [Aspir-81] 81 mg PO DAILY 02/02/18 02/02/18 History baclofen 20 mg PO BID 02/02/18 02/02/18 History calcitonin (salmon) 1 spray INTRANASAL (ALT) DAILY 02/02/18 02/02/18 History meloxicam 15 mg PO DAILY 02/02/18 02/02/18 History metoprolol tartrate 25 mg PO BID 02/02/18 02/02/18 History prednisone 10 mg PO DIRECTED 02/02/18 02/02/18 History Exam Vital signs: Vital Signs 02/02/18 00:10 02/02/18 00:32 Temperature 97.7 F Pulse Rate 53 L Respiratory Rate 18 Blood Pressure 164/72 H Pulse Oximetry 98 99 Narrative: PE: GENERAL: Elderly white male in moderate distress due to pain complaints, awake/ alert, intermittent confusion, at bedside. SKIN: Focused skin assessment warm and dry. HEENT: PERRLA, EOMI. No scleral icterus or conjunctival pallor. No lid lag or facial droop. CARDIOVASCULAR: Regular rate and rhythm. No obvious murmurs to auscultation. No chest tenderness to palpation. RESPIRATORY: No obvious rhonchi or wheezing. Clear to auscultation. Breath sounds equal bilaterally. GASTROINTESTINAL: Abdomen soft, non-tender, nondistended. BS normal. MUSCULOSKELETAL: Extremities without clubbing, cyanosis, or edema. No obvious deformities. Decreased ROM of LE due to back pain. NEUROLOGICAL: Awake, alert and oriented to person/place. No focal neurologic deficits. Moving both upper and lower extremities spontaneously. PSYCHIATRIC: Appropriate mood and affect. Insight and judgment normal. Results - Labs CBC & Chem 7: 02/02/18 00:35 02/02/18 00:35 Labs: Short CBC 02/02/18 Range/Units 00:35 WBC 22.4 H (4.0-11.0) th/mm3 Hgb 16.2 (13.0-17.0) gm/dL Hct 47.7 (39.0-51.0) % Plt Count 259 (150-450) th/mm3 [facility] 02/02/18 00:35 Sodium 137 Potassium 4.2 Chloride 104 Carbon Dioxide 23.3 BUN 25 H Creatinine 0.71 Calcium 8.5 Cardiac Enzymes 02/02/18 Range/Units 00:35 Troponin I 2.84 H* (0.02-0.05) ng/mL Liver Function 02/02/18 Range/Units 00:35 Total Bilirubin 1.2 H (0.2-1.0) mg/dL AST 45 H (15-37) U/L ALT 25 (12-78) U/L Alkaline Phosphatase 91 (45-117) U/L Albumin 3.5 (3.4-5.0) g/dL Urine 02/02/18 Range/Units 00:35 Urine Color Yellow (Yellw/Straw) Urine Clarity Clear (Clear) Urine pH 6.0 (5.0-8.5) Ur Specific [place] 1.016 (1.002-1.035) Urine Protein Negative (Neg-Trace) mg/dL Urine Glucose (UA) 50 (Negative) mg/dL - Imaging Impressions Head CT 02/02/18 00:33 CONCLUSION: 1. Negative CT Head non contrast except diffuse age-appropriate atrophy. . Caprini VTE Risk Assessment Caprini VTE Risk Assessment: No/Low Risk (score <= 1) Caprini Risk Assessment Model: Point Value = 1 Point Value = 2 Point Value = 3 Point Value = 5 Age 41-60 Minor surgery BMI > 25 kg/m2 Swollen legs Varicose veins or History of unexplained or recurrent spontaneous Oral contraceptives or hormone replacement Sepsis (< 1 month) Serious lung disease, including pneumonia (< 1 month) Abnormal pulmonary function Acute myocardial infarction Congestive heart failure (< 1 month) History of inflammatory bowel disease Medical patient at bed rest Age 61-74 Arthroscopic surgery Major open surgery (> 45 min) Laparoscopic surgery (> 45 min) Malignancy Confined to bed (> 72 hours) Immobilizing plaster cast Central venous access Age >= 75 History of VTE Family history of VTE Factor V Leiden Prothrombin [id number] Lupus anticoagulant Anticardiolipin antibodies Elevated serum homocysteine Heparin-induced thrombocytopenia Other congenital or acquired thrombophilia Stroke (< 1 month) Elective arthroplasty Hip, pelvis, or leg fracture Acute spinal cord injury (< 1 month) Prophylaxis Regimen: Total Risk Factor Score Risk Level Prophylaxis Regimen 0-1 Low Early ambulation 2 Moderate Order ONE of the following: *Sequential Compression Device (SCD) *Heparin 5000 units SQ BID 3-4 Higher Order ONE of the following medications: *Heparin 5000 units SQ TID *Enoxaparin/Lovenox 40 mg SQ daily (WT < 150 kg, CrCl > 30 mL/min) *Enoxaparin/Lovenox 30 mg SQ daily (WT < 150 kg, CrCl > 10-29 mL/min) *Enoxaparin/Lovenox 30 mg SQ BID (WT < 150 kg, CrCl > 30 mL/min) AND/OR *Sequential Compression Device (SCD) 5 or more Highest Order ONE of the following medications: *Heparin 5000 units SQ TID (Preferred with Epidurals) *Enoxaparin/Lovenox 40 mg SQ daily (WT < 150 kg, CrCl > 30 mL/min) *Enoxaparin/Lovenox 30 mg SQ daily (WT < 150 kg, CrCl > 10-29 mL/min) *Enoxaparin/Lovenox 30 mg SQ BID (WT < 150 kg, CrCl > 30 mL/min) AND *Sequential Compression Device (SCD) Assessment and Plan - Assessment (1) Encephalopathy Code(s): G93.40 - Encephalopathy, unspecified Status: Acute (2) NSTEMI (non-ST elevated myocardial infarction) Code(s): I21.4 - Non-ST elevation (NSTEMI) myocardial infarction Status: Acute (3) Lumbar compression fracture Code(s): S32.000A - Wedge compression fracture of unspecified lumbar vertebra, initial encounter for closed fracture Status: Acute (4) Leukocytosis Code(s): D72.829 - Elevated white blood cell count, unspecified Status: Acute - Plan A/P: 1. Encephalopathy: suspect some component of underlying Dementia, compounded by Baclofen for recent compression fracture, in addition to NSTEMI. CT Head w/ no acute findings, images reviewed. Neuro Checks. U/a w/ no significant UTI. 2. NSTEMI: Trop 2.85, no acute EKG changes, pt w/o complaints of chest pain, recent Lumbar Compression Fx w/ severe back pain, CT L-Spine pending, will start anticoagulation if no evidence of hemorrhage noted. Check serial cardiac enzymes, consult Dr. Mckeon for further eval/intervention. Check Echo to eval for valvular abnormality w/ h/o AVR. 3. Leukocytosis: WBC 22.4, possibly related to recent steroid therapy for compression fracture, Afebrile, U/a negative, check CXR to eval for underlying PNA, repeat labs in am. 4. L4 Compression Fx: reports pt w/ recent outpatient CT L-Spine 2 days ago showing "L4 compression fracture w/ bulging disc", now w/ increased pain, hold Baclofen in light of AMS. CT L-Spine pending, will follow up results, TLSO , possible Neurosurgical consult for intervention as needed. 5. DVT Prophylaxis: SCD/Teds 6. Social work for d/c planning as needed. 7. Case discussed w/ ER physician at length, labs/records/imaging reviewed by me.
[2018-02-02] MEDS ORDERED: Heparin 10,000 UNITS/10 ML Vial (for IV use) IV.PUSH STA (03:04)
--- NOTE | 2018-02-02 03:31 | XR ---
EXAM DATE: 02/02/2018 3:06 AM EST AGE/SEX: 82 years / Male INDICATIONS: Evaluate for pneumonia. CLINICAL DATA: This is the patient's initial encounter. Patient reports that signs and symptoms have been present for 1 day and indicates a pain score of 0/10. MEDICAL/SURGICAL HISTORY: Cardiovascular disease. CABG. Pacemaker. Ablation. COMPARISON: No prior exams available for comparison. FINDINGS: A single AP view of the chest demonstrates the lungs to be symmetrically aerated without evidence of mass, infiltrate or effusion. The cardiomediastinal contours are unremarkable. Osseous structures a re intact. There is a right subclavian bipolar pacer. Clips and wires suggests CABG. CONCLUSION: No definite infiltrate is noted. Left hemidiaphragm is slightly elevated. Previous median sternotomy and pacemaker placement Electronically signed by: Lobo Woods MD 02/02/2018 3:29 AM EST
[2018-02-02 04:04] LABS: Activated Partial Thrombo Time 27.8 sec (23.4-31.7); INR 1.2 Ratio; Prothrombin Time 12.5 sec (9.8-11.6)
[2018-02-02] MEDS: Sod Chloride 0.9% Inj 1,000 ML IV.CONT SCH ×4 (05:18→22:55)
[2018-02-02] MEDS: Heparin Drip 25,000 UNIT/250 ML BAG IV.CONT PRN ×2 (05:22→22:56)
--- NOTE | 2018-02-02 08:41 | P.PNIM ---
Subjective Interval history: Pt seen and examined for f/u altered mental status possible NSTEMI. Admitted overnight and placed on heparin drip for troponin 2.84. Trop increased to 4.21 this morning. Patient with no chest pain, palpitations, dizziness, lightheadedness, nausea, vomiting. Currently comfortable in bed with minimal pain in his back as long as he doesn't move. Denies cough or shortness of breath. Admits he is having difficulty finding words and trying to communicate. His denies that he has had any recent fall leading to the compression fracture but the patient informs her for the first time that he may have slipped out of bed. He doesn't think he hit his head. Physical Exam Vital signs: Vital Signs 02/02/18 00:10 02/02/18 00:32 02/02/18 03:00 Temperature 97.7 F Pulse Rate 53 L 49 L Respiratory Rate 18 18 Blood Pressure 164/72 H 150/80 H Pulse Oximetry 98 99 99 02/02/18 03:34 02/02/18 03:50 02/02/18 04:00 Temperature 97.8 F 97.8 F Pulse Rate 51 L 49 L 49 L Respiratory Rate 18 18 Blood Pressure 167/71 H 156/68 H Pulse Oximetry 100 97 02/02/18 05:00 02/02/18 06:00 02/02/18 08:10 Temperature Pulse Rate 49 L 49 L Respiratory Rate Blood Pressure Pulse Oximetry 96 Intake & Output 02/01/18 02/02/18 02/02/18 18:59 06:59 18:59 Intake Total 0 / 0 Output Total 440 / 440 Balance -440 / -440 Weight 86 kg Intake: Oral 0 / 0 Output: Urine Amount (Catheter) 440 / 440 Indwelling Urethral Catheter 440 / 440 Other: Date of Last Bowel Movement 02/01/18 Weight On Admission 86 kg Narrative: GENERAL: WN, WD male resting in bed in NAD. SKIN: Warm and dry. Ecchymoses and purpura over UE. Median sternotomy scar. HEENT: AT/NC. PERRLA. EOMI. No nasal drainage. Dry mucous membranes. NECK: Supple no tender LAD or JVD. HEART: Bradycardia with no rubs or gallops. LUNGS: CTAB without wheezes or crackles. ABDOMEN: +BS, soft, NT, ND. EXTREMITIES: No LE edema. Diminished pedal pulses. Calves supple and nontender. NEURO: Awake and alert. Oriented to person only. Some expressive aphasia. Difficulty word-finding. CN II-XII intact. UE and LE strength 5/5 bilaterally. Sensation intact bilaterally. Pronator drift equivocal. PSYCH: Mood appears elevated. Patient laughing frequently. - Urinary Catheter Management Indwelling Urethral Catheter Cath placed during this visit: yes Reason for continuing: Other continuation reason Insertion date: 02/02/18 Insertion time: 03:00 Results - Labs CBC & Chem 7: 02/02/18 00:35 02/02/18 00:35 Laboratory Results - last 24 hr 02/02/18 02/02/18 02/02/18 00:35 00:35 00:35 WBC 22.4 H RBC 4.84 Hgb 16.2 Hct 47.7 MCV 98.6 MCH 33.5 MCHC 34.0 RDW 12.9 Plt Count 259 MPV 9.1 Prelim Diff (Auto) Slide review pending Neut % (Auto) 75.6 H Lymph % (Auto) 14.5 [place] % (Auto) 8.3 H Eos % (Auto) 0.3 Baso % (Auto) 1.3 Neut # (Auto) 16.9 H Lymph # (Auto) 3.2 [place] # (Auto) 1.9 H Eos # (Auto) 0.1 Baso # (Auto) 0.3 H WBC Differential . Diff Scan Auto diff confirmed Differential Comment . PT INR APTT Sodium 137 Potassium 4.2 Chloride 104 Carbon Dioxide 23.3 Anion Gap 10 BUN 25 H Creatinine 0.71 Estimated GFR Greater than 89 Random Glucose 160 H Calcium 8.5 Magnesium 1.8 Total Bilirubin 1.2 H AST 45 H ALT 25 Alkaline Phosphatase 91 Troponin I 2.84 H* Total Protein 7.3 Albumin 3.5 Urine Color Yellow Urine Clarity Clear Urine pH 6.0 Ur Specific [place] 1.016 Urine Protein Negative Urine Glucose (UA) 50 Urine Ketones Trace H Urine Occult Blood Negative Urine Nitrate Negative Urine Bilirubin Negative Urine Urobilinogen Less than 2 Ur Leukocyte Esterase Negative Urine RBC 2 Urine WBC 1 Urine Mucus Few H Micro UA Comment Cath-culture not ind Ur Microscopic Review Not Reportable Urine Culture Comments Cath-cult not ind 02/02/18 02/02/18 03:34 05:50 WBC RBC Hgb Hct MCV MCH MCHC RDW Plt Count MPV Prelim Diff (Auto) Neut % (Auto) Lymph % (Auto) [place] % (Auto) Eos % (Auto) Baso % (Auto) Neut # (Auto) Lymph # (Auto) [place] # (Auto) Eos # (Auto) Baso # (Auto) WBC Differential Diff Scan Differential Comment PT 12.5 H INR 1.2 APTT 27.8 Sodium Potassium Chloride Carbon Dioxide Anion Gap BUN Creatinine Estimated GFR Random Glucose Calcium Magnesium Total Bilirubin AST ALT Alkaline Phosphatase Troponin I 4.21 H* Total Protein Albumin Urine Color Urine Clarity Urine pH Ur Specific [place] Urine Protein Urine Glucose (UA) Urine Ketones Urine Occult Blood Urine Nitrate Urine Bilirubin Urine Urobilinogen Ur Leukocyte Esterase Urine RBC Urine WBC Urine Mucus Micro UA Comment Ur Microscopic Review Urine Culture Comments - Imaging Impressions Chest X-Ray 02/02/18 00:00 CONCLUSION: No definite infiltrate is noted. Left hemidiaphragm is slightly elevated. Previous median sternotomy and pacemaker placement Head CT 02/02/18 00:33 CONCLUSION: 1. Negative CT Head non contrast except diffuse age-appropriate atrophy. . Lumbar Spine CT 02/02/18 02:06 CONCLUSION: 1. Mild compression deformity of the L4 vertebral body with slight retropulsion of the superior endplate by 6 mm. No other fractures are identified. There is also a coronal fracture through the anterior third of the L4 vertebral body without displacement. No interval change since the . Assessment and Plan - Assessment (1) Encephalopathy Code(s): G93.40 - Encephalopathy, unspecified Status: Acute (2) NSTEMI (non-ST elevated myocardial infarction) Code(s): I21.4 - Non-ST elevation (NSTEMI) myocardial infarction Status: Acute (3) Lumbar compression fracture Code(s): S32.000A - Wedge compression fracture of unspecified lumbar vertebra, initial encounter for closed fracture Status: Acute (4) Leukocytosis Code(s): D72.829 - Elevated white blood cell count, unspecified Status: Acute - Plan 82 year OLD male with history of HTN, HLD, CAD s/p CABG, h/o pacemaker , h/o AVR and recent L4 compression fracture admitted for confusion and altered mental status after his noted he speech was "gurgled" and he wasn't making any sense. 1. Altered mental status/encephalopathy - CT head negative except for diffuse age-appropriate atrophy - Concern for possible CVA vs. medication side effect since recently on Baclofen which can be dangerous in the elderly - Troponins elevated - No UTI and CXR negative for pneumonia - Pacemaker precludes MRI - Check CTA head/neck - Check 2D echo - Neurology consulted - NS at 70 ml/hr - PT/ST/OT 2. Elevated troponin/NSTEMI - Troponins increasing from 2.85 to 4.81 - No chest pain or renal insufficiency - Cardiology consulted - Pt placed on heparin gtt on admission 3. L4 acute compression fracture - L-spine CT showing mild compression deformity of the L4 vertebral body with slight retropulsion of the superior endplate by 6 mm. No other fractures identified. There is also coronal fracture through the anterior third of the L4 vertebral body without displacement. No interval change since the - Check vitamin D level - PT to eval and treat - Conservative management at this time - Pain control - If pain difficult to control can consider ortho consult 4. Leukocytosis - WBC 22.4 - No signs of infection, afebrile, U/A negative, CXR negative - Likely secondary to steroid use from compression fracture 5. Bradycardia - Patient with pacemaker in place - Hold home metoprolol given rate 40-50s - Cardiology following DVT prophylaxis: on heparin gtt Code Status: FULL Discussed Condition With: Patient and his Discharge Planning: Pending further neurologic work-up, 2D echo, recommendations from specialists
[2018-02-02] MEDS: Senna/Docusate Sodium 8.6/50 MG Tablet PO SCH ×2 (09:08→20:25)
--- NOTE | 2018-02-02 11:01 | P.CONNEU ---
History of Present Illness Service: Neurology Primary Care Provider: UNKNOWN Chief Complaint: Possible stroke History of Present Illness: 82-year-old male admitted for altered mental status occurring greater than 6 hours prior to arrival to the ER therefore not IV TPA candidate. In addition he is having low back pain apparently to urgent care center start on baclofen which he was taken twice a day. Also found to have L4 compression fracture. Further, been found to have elevated stroke troponin and has been placed on a heparin drip. He is noted to have some trouble with language and neurology was consulted for further evaluation for the possibility of stroke. Patient takes an aspirin at home. Denies any headache focal weakness. states his speech has been improving since admission. No previous history of TIA or stroke. Review of Systems All other systems reviewed negative except as stated in HPI [facility] - History History Provided By: Family Member - Medical History Medical History: Medical History (Last Reviewed 02/02/18 @ 10:38 by Светлана Newell) History of skin cancer Hx of cardiac pacemaker - Surgical History Surgical History: Surgical History (Last Reviewed 02/02/18 @ 10:38 by Светлана Newell) Hx of aortic valve replacement Hx of heart surgery - Tobacco History Smoking Status: Former smoker - Alcohol History How Often Do You Have a Drink Containing Alcohol: 2 to 4 times a month - Substance Use History Substance History: No History of Abuse - Travel History Recent Travel in the [place] Within the Last 8 Weeks: No Recent Travel Out of the Country Within the Last 8 Weeks: No - Immunization History Tetanus Immunization: Unsure Medications and Allergies Active Medications: Active Medications Acetaminophen (Tylenol) 650 mg PO Q4H PRN PRN Reason: Temp > 100.4 Al Hydroxide/Mg Hydroxide (Milk Of [place]) 30 ml PO Q12H PRN PRN Reason: Mild Constipation Aspirin (Aspirin Chew) 81 mg PO DAILY [facility] Last Admin: 02/02/18 09:08 Dose: 81 mg Bisacodyl (Dulcolax Supp) 10 mg RECTAL DAILY PRN PRN Reason: SEVERE CONSITIPATION Sodium Chloride (Ns Inj) 1,000 mls @ 100 mls/hr IV.CONT .Q10H [facility] Last Admin: 02/02/18 05:18 Dose: 100 mls/hr Heparin Sodium/Dextrose (Heparin/D5w 25,000 U/250 Ml) 25,000 unit in 250 mls @ 10 mls/hr IV.CONT TITRATE PRN; Protocol PRN Reason: Per Protocol Last Admin: 02/02/18 05:22 Dose: 1,000 units/hr, 10 mls/hr Sodium Chloride (Ns Inj) 1,000 mls @ 70 mls/hr IV.CONT .[id number] [facility] Lactulose (Lactulose Liq) 30 ml PO DAILY PRN PRN Reason: SEVERE CONSITIPATION Morphine Sulfate (Morphine Inj) 2 mg IV.PUSH Q4H PRN PRN Reason: PAIN 6-10 Ondansetron HCl (Zofran Inj) 4 mg IV.PUSH Q6H PRN PRN Reason: NAUSEA OR VOMITING Senna/Docusate Sodium (Nataliya-Colace) 1 tab PO BID [facility] Last Admin: 02/02/18 09:08 Dose: 1 tab Sennosides (Senokot) 17.2 mg PO Q12H PRN PRN Reason: Moderate Constipation Sodium Chloride (Ns Flush) 2 ml IV.FLUSH BID [facility] Sodium Chloride (Ns Flush) 2 ml IV.FLUSH PRN PRN PRN Reason: FLUSH AFTER USING IV ACCESS Allergies Allergy/AdvReac Type Severity Reaction Status Date / Time shellfish derived Allergy Severe Verified 02/08/17 14:44 Sulfa (Sulfonamide Allergy Severe Verified 02/08/17 14:44 Antibiotics) latex AdvReac Unknown Verified 02/05/17 15:20 Home Medications Medication Instructions Recorded Confirmed Type aspirin [Aspir-81] 81 mg PO DAILY 02/02/18 02/02/18 History baclofen 20 mg PO BID 02/02/18 02/02/18 History calcitonin (salmon) 1 spray INTRANASAL (ALT) DAILY 02/02/18 02/02/18 History meloxicam 15 mg PO DAILY 02/02/18 02/02/18 History metoprolol tartrate 25 mg PO BID 02/02/18 02/02/18 History prednisone 10 mg PO DIRECTED 02/02/18 02/02/18 History Exam Vital signs: Vital Signs 02/02/18 00:10 02/02/18 00:32 02/02/18 03:00 Temperature 97.7 F Pulse Rate 53 L 49 L Respiratory Rate 18 18 Blood Pressure 164/72 H 150/80 H Pulse Oximetry 98 99 99 02/02/18 03:34 02/02/18 03:50 02/02/18 04:00 Temperature 97.8 F 97.8 F Pulse Rate 51 L 49 L 49 L Respiratory Rate 18 18 Blood Pressure 167/71 H 156/68 H Pulse Oximetry 100 97 02/02/18 05:00 02/02/18 06:00 02/02/18 07:00 Temperature 97.8 F Pulse Rate 49 L 49 L 50 L Respiratory Rate 18 Blood Pressure 137/65 Pulse Oximetry 98 02/02/18 08:00 02/02/18 08:10 02/02/18 09:00 Temperature Pulse Rate 59 L 60 Respiratory Rate Blood Pressure Pulse Oximetry 98 96 02/02/18 10:00 Temperature Pulse Rate 60 Respiratory Rate Blood Pressure Pulse Oximetry Intake & Output 02/01/18 02/02/18 02/02/18 18:59 06:59 18:59 Intake Total 0 / 0 Output Total 440 / 440 Balance -440 / -440 Weight 86 kg Intake: Oral 0 / 0 Output: Urine Amount (Catheter) 440 / 440 Indwelling Urethral Catheter 440 / 440 Other: Date of Last Bowel Movement 02/01/18 Weight On Admission 86 kg Narrative: GENERAL: in NAD, SKIN: Warm and dry. HEAD: Atraumatic. Normocephalic. EYES: Pupils equal and round. No scleral icterus. ENT: No nasal bleeding or discharge. NECK: Trachea midline. No JVD. CARDIOVASCULAR: Regular rate and rhythm. RESPIRATORY: No accessory muscle use. GASTROINTESTINAL: Abdomen soft, non-tender, nondistended. MUSCULOSKELETAL: Extremities without clubbing, cyanosis, or edema. No obvious deformities. NEUROLOGICAL: Awake and alert. Oriented 1-2. Not to date, some disfluency, able name simple objects repeat and read, can follow simple motor requests, no facial asymmetry, OU 3-2mm, eomi, VFF, No drift, Motor grossly within normal limits. Five out of 5 muscle strength in the arms and legs. Tone normal in all 4 limbs, Sensory normal in all 4 extremities to pin, msr 1-2+ sym, no clonus, planterflexor, PSYCHIATRIC: Calm, appropriate Results - Labs CBC & Chem 7: 02/02/18 00:35 02/02/18 00:35 Labs: Laboratory Results - last 24 hr 02/02/18 02/02/18 02/02/18 00:35 00:35 00:35 WBC 22.4 H RBC 4.84 Hgb 16.2 Hct 47.7 MCV 98.6 MCH 33.5 MCHC 34.0 RDW 12.9 Plt Count 259 MPV 9.1 Prelim Diff (Auto) Slide review pending Neut % (Auto) 75.6 H Lymph % (Auto) 14.5 [place] % (Auto) 8.3 H Eos % (Auto) 0.3 Baso % (Auto) 1.3 Neut # (Auto) 16.9 H Lymph # (Auto) 3.2 [place] # (Auto) 1.9 H Eos # (Auto) 0.1 Baso # (Auto) 0.3 H WBC Differential . Diff Scan Auto diff confirmed Differential Comment . PT INR APTT Sodium 137 Potassium 4.2 Chloride 104 Carbon Dioxide 23.3 Anion Gap 10 BUN 25 H Creatinine 0.71 Estimated GFR Greater than 89 Random Glucose 160 H Calcium 8.5 Magnesium 1.8 Total Bilirubin 1.2 H AST 45 H ALT 25 Alkaline Phosphatase 91 Troponin I 2.84 H* Total Protein 7.3 Albumin 3.5 Urine Color Yellow Urine Clarity Clear Urine pH 6.0 Ur Specific [place] 1.016 Urine Protein Negative Urine Glucose (UA) 50 Urine Ketones Trace H Urine Occult Blood Negative Urine Nitrate Negative Urine Bilirubin Negative Urine Urobilinogen Less than 2 Ur Leukocyte Esterase Negative Urine RBC 2 Urine WBC 1 Urine Mucus Few H Micro UA Comment Cath-culture not ind Ur Microscopic Review Not Reportable Urine Culture Comments Cath-cult not ind 02/02/18 02/02/18 03:34 05:50 WBC RBC Hgb Hct MCV MCH MCHC RDW Plt Count MPV Prelim Diff (Auto) Neut % (Auto) Lymph % (Auto) [place] % (Auto) Eos % (Auto) Baso % (Auto) Neut # (Auto) Lymph # (Auto) [place] # (Auto) Eos # (Auto) Baso # (Auto) WBC Differential Diff Scan Differential Comment PT 12.5 H INR 1.2 APTT 27.8 Sodium Potassium Chloride Carbon Dioxide Anion Gap BUN Creatinine Estimated GFR Random Glucose Calcium Magnesium Total Bilirubin AST ALT Alkaline Phosphatase Troponin I 4.21 H* Total Protein Albumin Urine Color Urine Clarity Urine pH Ur Specific [place] Urine Protein Urine Glucose (UA) Urine Ketones Urine Occult Blood Urine Nitrate Urine Bilirubin Urine Urobilinogen Ur Leukocyte Esterase Urine RBC Urine WBC Urine Mucus Micro UA Comment Ur Microscopic Review Urine Culture Comments - Imaging Impressions Chest X-Ray 11/18/18 00:00 CONCLUSION: No definite infiltrate is noted. Left hemidiaphragm is slightly elevated. Previous median sternotomy and pacemaker placement Head CT 02/02/18 00:33 CONCLUSION: 1. Negative CT Head non contrast except diffuse age-appropriate atrophy. . Lumbar Spine CT 02/02/18 02:06 CONCLUSION: 1. Mild compression deformity of the L4 vertebral body with slight retropulsion of the superior endplate by 6 mm. No other fractures are identified. There is also a coronal fracture through the anterior third of the L4 vertebral body without displacement. No interval change since the . Review/Management - Diagnosis (1) Pacemaker Code(s): Z95.0 - Presence of cardiac pacemaker Status: Acute Current Visit: Yes (2) Encephalopathy Code(s): G93.40 - Encephalopathy, unspecified Status: Acute Current Visit: Yes (3) NSTEMI (non-ST elevated myocardial infarction) Code(s): I21.4 - Non-ST elevation (NSTEMI) myocardial infarction Status: Acute Current Visit: Yes (4) Lumbar compression fracture Code(s): S32.000A - Wedge compression fracture of unspecified lumbar vertebra, initial encounter for closed fracture Status: Acute Current Visit: Yes (5) Leukocytosis Code(s): D72.829 - Elevated white blood cell count, unspecified Status: Acute Current Visit: Yes - Review/Management Plan: Mild disorientation and disfluency. He may have sustained a tiny left frontotemporal infarct commitment with non-STEMI Other consideration would include medication effect secondary to baclofen Initial CT brain scan negative for any acute lesion. Unable to obtain an MRI due to having a pacemaker On heparin drip for STEMI Suspected steroid-induced leukocytosis Recommendation Repeat CT scan in the a.m. EEG Follow-up HbA1c, lipid panel Follow-up 2D echo, carotid ultrasound Follow exam Discussed with patient, spouse Behavioral modification and risk factor reduction. Weight loss, blood pressure control, blood sugar control, lipid control. Exercise
[2018-02-02 11:28] LABS: Chol/HDL Ratio 2.5 Ratio
[2018-02-02] MEDS: Sodium Chloride 0.9% 2 ML Flush BID IV.FLUSH SCH ×2 (11:28→20:24)
--- NOTE | 2018-02-02 11:57 | US ---
EXAM DATE: 02/02/2018 11:50 AM EST AGE/SEX: 82 years / Male INDICATIONS: Cerebral vascular accident. CLINICAL DATA: This is the patient's initial encounter. Patient reports that signs and symptoms have been present for 1 day and indicates a pain score of 0/10. MEDICAL/SURGICAL HISTORY: Carcinoma, skin cancer. . Heart surgery. Valve replacement. Cardiac p acemaker. COMPARISON: No prior exams available for comparison. VELOCITY PARAMETERS: ICA/CCA Ratio: Right 0.8 , Left 0.7 ICA: Right 61 cm/sec, Left 64 cm/sec CCA: Right 72 cm/sec, Left 90 cm/sec ECA: Right 86 cm/sec, Left 70 cm/sec Vertebral: Right 43 cm/sec antegrade, Left 37 cm/sec antegrade FINDINGS: Right Carotid: No significant plaque is visualized.The waveforms are within normal limits. Left Carotid: No significant plaque is visualized. The waveforms are within normal limits. Other: None. CONCLUSION: No evidence of flow-limiting carotid stenosis. Electronically signed by: Fransico Squires MD 02/02/2018 11:55 AM EST
--- NOTE | 2018-02-02 11:57 | MB ---
cc: Galen Quevedo MD DATE: 02/02/2018 REASON FOR CONSULTATION: Elevated troponin. HISTORY OF PRESENT ILLNESS: Mr. Jimenes is an 82-year-old white male patient of Dr. Elam, with history of coronary artery disease, hypertension, hyperlipidemia, prior coronary artery bypass grafting and aortic valve replacement with a bovine valve about 6 years ago and a pacemaker implant. The patient was taken to the hospital by EMS after his called because of change in mental status and difficulty ambulating and inability to speak. She says he has improved somewhat since admission last night, but his speech is still impaired. He is awake and alert, in no distress. He denied any chest discomfort or dyspnea at any time. He did have a recent evaluation in urgent care as an outpatient 2 days ago because of a ruptured compression fracture at L4. He is comfortable lying in bed at this time with no complaints. He does have an expressive aphasia. The says this is all new and he, a day or so ago, was entirely normal. LABORATORY ON ARRIVAL: His troponin I was 2.84, and a second set 4.21. PAST MEDICAL HISTORY: As mentioned above. He has also had a history of complete heart block, pneumonia, skin cancer, atrial fibrillation, and nonsustained ventricular tachycardia. PAST SURGICAL HISTORY: Includes coronary artery bypass grafting x2 vessels with an aortic valve replacement, a #[address] [employer]ir bovine pericardial valve in 2011. Grafts were to the ramus intermedius and diagonal branch and he had a mitral valve repair with a [employer] Abdulkadir ring at that time. He has a Medtronic dual-chamber pacemaker. He had left atrial ablation and clipping of the left atrial appendage in March 2013. ALLERGIES: SULFA DRUGS AND LASIX. CURRENT MEDICATIONS: 1. Acetaminophen 650 mg every 4 hours p.r.n. 2. Intravenous heparin infusion. 3. Morphine IV p.r.n. 4. Dulcolax p.r.n. 5. Zofran 4 mg IV p.r.n. FAMILY HISTORY: Noncontributory. SOCIAL HISTORY: The patient denies significant alcohol intake. Denies tobacco use at this time. He is a former smoker. Denies illicit drug use. , living with his . REVIEW OF SYSTEMS: Except for that mentioned in the HPI, his 12-point review of systems is otherwise negative. PHYSICAL EXAMINATION: GENERAL: Reveals an elderly white male lying in bed in no distress. VITAL SIGNS: Blood pressure 156/68 mmHg, heart rate is 50 and regular, respiratory rate 18, temperature 97.8, oxygen saturation is 97% on room air. HEENT: Head is normocephalic and atraumatic. Pupils equal, round, reactive to light. Sclerae are anicteric. Extraocular movements intact. NECK: Supple. There is no adenopathy. No jugular venous distention at 45 degrees. Carotid upstrokes are normal. No bruits. Thyroid exam is normal. LUNGS: Clear. HEART: PMI is not displaced. S1, S2 are normal. Bowel sounds are normal. There is a grade 1/6 systolic murmur at the base. No diastolic murmur, gallops or rubs. ABDOMEN: Benign. EXTREMITIES: No cyanosis, clubbing or edema. Perfusion is adequate in the upper and lower extremities. There are no femoral bruits. NEUROLOGIC: Shows good strength bilaterally. He does appear to have an expressive aphasia, but can follow commands. LABORATORY DATA: Electrolytes are normal with a potassium 4.2, BUN 25, creatinine 0.71. Calcium 8.5, AST 45, troponin as mentioned of 2.84 on admission, 4.21. A second set. Coags not performed. Chemistry: CBC: White count 22.4, hemoglobin 16.2, platelet count 259,000. DIAGNOSTIC DATA: The EKG at this time shows underlying atrial fibrillation with electronic ventricular pacing, rate 50, 100% capture. A CT of the head shows no mass effect or midline shift, no hemorrhage or acute infarct. Chest x-ray: No definite infiltrate noted. Left hemidiaphragm slightly elevated. Previous median sternotomy and pacemaker placement. ASSESSMENT AND PLAN: 1. Acute cerebrovascular accident/transient ischemic attack. Altered mental state consistent with acute CVA/TIA, with expressive aphasia and reported ataxia. 2. Elevated troponin I probably consistent with above. Rule out [id number] myocardial infarction. 3. Coronary artery disease, status post 2-vessel coronary artery bypass grafting. 4. Aortic valve disease, status post aortic valve replacement, bioprosthetic valve. 5. Hypertension. 6. Hyperlipidemia. 7. History of paroxysmal atrial fibrillation. Status post left atrial ablation and clipping of the left atrial appendage 03/2013. The patient's initial presentation is most consistent with acute CVA probably embolic in nature. I will schedule an echocardiogram for evaluation of his aortic valve and rule out any obvious intracardiac masses. He will most likely require anticoagulation therapy going forward. Would resume aspirin therapy and anticoagulation as soon as Neurology service feels it is safe to do so. We will continue to follow him with you, observe on telemetry, and further recommendations will follow. I discussed the findings and plans with the patient and his at the bedside. Dr. Mckeon will followup tomorrow. Thank you for allowing us to participate in the care of this patient. MD SITA Lucas/lisy , 07:51 AM , 08:05 AM
[2018-02-02 12:28] LABS: Hemoglobin A1c 5.5 % (4.3-6.0)
--- NOTE | 2018-02-02 14:29 | ECHRPT ---
Indication: HEART FAILURE CONCLUSIONS Normal left ventricular size. Wall thickness is normal. The left ventricular systolic function is low normal with an estimated ejection fraction in the rang e of 50- 55%. inferior hypokinesis. A pacemaker wire is noted. The right atrial size is mildly dilated. There is a pacemaker wire present in the right atrial cavity. The interatrial septum not well visualized. [id number] mitral valve regurgitation. Aortic valve sclerosis is present. Trace aortic valve regurgitation. There is mild tricuspid valve regurgitation. The estimated pulmonary arterial pressure is 50.4 mmHg. Mild pulmonary valve regurgitation. BP: / HR: Rhythm: Other MEASUREMENTS (Male / Female) Normal Values Technical Quality:Fair 2D ECHO LV Diastolic Diameter PLAX 5.7 cm 4.2 - 5.9 / 3.9 - 5.3 cm LV Systolic Diameter PLAX 4.4 cm IVS Diastolic Thickness 1.0 cm 0.6 - 1.0 / 0.6 - 0.9 cm LVPW Diastolic Thickness 1.0 cm 0.6 - 1.0 / 0.6 - 0.9 cm LV Relative Wall Thickness 0.3 RV Internal Dim ED PLAX 3.8 cm LVOT Diameter 2.2 cm Aortic Root Diameter 2.9 cm LA Systolic Diameter LX 3.7 cm 3.0 - 4.0 / 2.7 - 3.8 cm DOPPLER AV Peak Velocity 223.0 cm/s AV Peak Gradient 19.9 mmHg AV Mean Gradient 11.0 mmHg AV Velocity Time Integral 40.4 cm LVOT Peak Velocity 85.6 cm/s LVOT Peak Gradient 2.9 mmHg LVOT Velocity Time Integral 13.7 cm AV Area Cont Eq vti 1.3 cm AV Area Cont Eq pk 1.5 cm Mitral E Point Velocity 145.0 cm/s LV E' Lateral Velocity 14.5 cm/s Mitral E to LV E' Lateral Ratio 10.0 LV E' Septal Velocity 6.2 cm/s Mitral E to LV E' Septal Ratio 23.2 TR Peak Velocity 318.0 cm/s TR Peak Gradient 40.4 mmHg Right Atrial Pressure 10.0 mmHg Pulmonary Artery Systolic Pressu 50.4 mmHg Right Ventricular Systolic Press 50.4 mmHg FINDINGS LEFT VENTRICLE Normal left ventricular size. Wall thickness is normal. The left ventricular systolic function is low normal with an estimated ejection fraction in the rang e of 50- 55%. Inferior hypokinesis RIGHT VENTRICLE Normal right ventricular size and systolic function. A pacemaker wire is noted. LEFT ATRIUM The left atrial size is normal. RIGHT ATRIUM The right atrial size is mildly dilated. There is a pacemaker wire present in the right atrial cavity. ATRIAL SEPTUM The interatrial septum not well visualized. AORTA The aortic root and proximal ascending aorta are not well visualized. MITRAL VALVE Mild mitral annular calcification. Wkjn-ak-[id number] mitral valve regurgitation. AORTIC VALVE Aortic valve sclerosis is present. Trace aortic valve regurgitation. TRICUSPID VALVE There is mild tricuspid valve regurgitation. The estimated pulmonary arterial pressure is 50.4 mmHg. PULMONARY VALVE Mild pulmonary valve regurgitation. VESSELS The inferior vena cava is normal in size. PERICARDIUM No pericardial effusion. Gregg Casey MD (Electronically Signed) Final Date:02 February 2018 14:28
--- NOTE | 2018-02-02 15:50 | ECG ---
Date Performed: 02/02/2018 Time Performed: 00:25:10 PTAGE: 82 years EKG: ELECTRONIC VENTRICULAR PACEMAKER ABNORMAL RHYTHM ECG The patient is fully paced at heart ra te of 49. PREVIOUS TRACING : 02/05/2017 21.56 Compared to previous tracing, the patient was ventric ular paced with atrial sensing at a rate of 86. The underlying here appears to be atrial fibrillation . Clinical correlation is recommended DOCTOR: Russell Costa Interpretating Date/Time 02/02/2018 15:50:28
[2018-02-02] MEDS: Morphine Sulfate Inj 2 MG/ML Vial IV.PUSH PRN ×2 (16:04→20:24)
--- NOTE | 2018-02-02 21:32 | MG ---
cc: Oswaldo Peters MD DATE OF STUDY: 02/02/2018 ELECTROENCEPHALOGRAM RECORD NUMBER: [id number] DESCRIPTION: A 5-6 Hz posterior rhythm, 20-50 microvolts followed by bursts of high-amplitude theta, frontal sharply contoured activity. Reasonable driving with photic stimulation. Bursts of theta, sharp transient frontal region, EPOCH 59. Semirhythmic frontal sharply contoured delta activity, EPOCH 71. Frontal sharp wave, EPOCH 105. Asynchronous waveforms. Single-lead EKG showing some irregularity, paced rhythm. INTERPRETATION: Abnormal electroencephalogram. [id number] encephalopathy with paroxysmal isolated frontal sharp waves. Cardiac arrhythmia. Clinical correlation. Oswaldo Peters MD MG/nathaly , 08:56 PM , 09:00 PM
[2018-02-03] MEDS: Sod Chloride 0.9% Inj 1,000 ML IV.CONT SCH ×2 (00:22→22:02)
[2018-02-03] MEDS: Morphine Sulfate Inj 2 MG/ML Vial IV.PUSH PRN ×2 (01:19→05:04)
[2018-02-03 05:53] LABS: Baso # (Auto) 0.1 th/mm3 (0.0-0.2); Baso % (Auto) 0.6 % (0.0-2.0); Eos # (Auto) 0.7 th/mm3 (0.0-0.4); Hematocrit 41.3 % (39.0-51.0); Hemoglobin 14.2 gm/dL (13.0-17.0); Lymph # (Auto) 3.8 th/mm3 (1.0-4.8); Lymph % (Auto) 22.3 % (9.0-44.0); Mean Corpuscular HGB Conc 34.4 % (32.0-36.0); Mean Corpuscular Hemoglobin 34.1 pg (27.0-34.0); Mean Platelet Volume 9.2 fL (7.0-11.0); Mono # (Auto) 1.9 th/mm3 (0.0-0.9); Mono % (Auto) 10.9 % (0.0-8.0); Neut # (Auto) 10.5 th/mm3 (1.8-7.7); Neut % (Auto) 62.2 % (16.0-70.0); Platelet Count 204 th/mm3 (150-450); Red Blood Count 4.17 mil/mm3 (4.50-5.90); White Blood Count 16.9 th/mm3 (4.0-11.0)
[2018-02-03 06:14] LABS: Anion Gap 8 meq/L (5-15); Aspartate Aminotransferase 77 U/L (15-37); Blood Urea Nitrogen 17 mg/dL (7-18); Calcium 8.1 mg/dL (8.5-10.1); Carbon Dioxide 25.2 meq/L (21.0-32.0); Chloride 106 meq/L (98-107); Glomerular Filtration Rate Greater Than 89 mL/min (>89); Glucose,Random 141 mg/dL (74-106); Potassium 3.9 meq/L (3.5-5.1); Sodium 139 meq/L (136-145)
[2018-02-03 06:20] LABS: Alanine Aminotransferase 24 U/L (12-78); Alkaline Phosphatase 82 U/L (45-117); Total Protein 6.1 g/dL (6.4-8.2)
--- NOTE | 2018-02-03 09:00 | P.PNIM ---
Subjective Interval history: Pt seen and examined with day and night RNs at the bedside. Patient has had no acute events. Continues to have some mild confusion, inappropriate laughter, and some aphasia. Continues to complain of back pain. Hasn't been out of bed too much. RN to get him to chair today. PT assessed him yesterday and recommended a walker at home. Denies CP, SOB, abdominal pain, N/V, paresthesias. Physical Exam Vital signs: Vital Signs 02/02/18 10:00 02/02/18 11:00 02/02/18 12:00 Temperature 98.8 F Pulse Rate 60 59 L 60 Respiratory Rate 18 Blood Pressure 144/63 H Pulse Oximetry 97 02/02/18 13:00 02/02/18 14:00 02/02/18 15:00 Temperature 97.8 F Pulse Rate 60 60 89 Respiratory Rate 18 Blood Pressure 138/67 Pulse Oximetry 97 02/02/18 16:00 02/02/18 17:00 02/02/18 18:00 Temperature Pulse Rate 103 H 67 67 Respiratory Rate Blood Pressure Pulse Oximetry 02/02/18 19:00 02/02/18 20:00 02/02/18 21:00 Temperature 98.2 F Pulse Rate 62 62 102 H Respiratory Rate 16 Blood Pressure 127/59 L Pulse Oximetry 99 02/02/18 21:52 02/02/18 22:00 02/02/18 23:00 Temperature 98.2 F Pulse Rate 62 62 Respiratory Rate 16 16 Blood Pressure 135/63 Pulse Oximetry 02/02/18 23:25 02/03/18 00:00 02/03/18 01:00 Temperature Pulse Rate 50 L 100 H Respiratory Rate 16 Blood Pressure Pulse Oximetry 02/03/18 02:00 02/03/18 03:00 02/03/18 04:00 Temperature 98.1 F Pulse Rate 96 H 98 H 92 H Respiratory Rate 16 Blood Pressure 132/62 Pulse Oximetry 02/03/18 05:00 02/03/18 05:36 02/03/18 06:00 Temperature Pulse Rate 94 H 88 Respiratory Rate 16 Blood Pressure Pulse Oximetry Intake & Output 02/02/18 02/03/18 02/03/18 18:59 06:59 18:59 Intake Total 480 / 480 1730 / 1730 Output Total 650 / 650 890 / 890 Balance -170 / -170 840 / 840 Weight 85 kg Intake: IV 1250 / 1250 Heparin/D5W 25,000 U/250 mL 25, 250 / 250 000 unit In 250 ml @ 1,000 UNITS/HR 10 mls/hr IV.CONT TITRATE PRN Rx#:[id number] NS Inj 1,000 ML @ 70 mls/hr IV. 1000 / 1000 CONT .[id number] TIANNA Rx#:[id number] Oral 480 / 480 480 / 480 Output: Urine Amount (Catheter) 650 / 650 890 / 890 Indwelling Urethral Catheter 650 / 650 890 / 890 Other: Date of Last Bowel Movement 02/01/18 02/01/18 Narrative: GENERAL: WN, WD male resting in bed in NAD. SKIN: Warm and dry. Ecchymoses and purpura over UE. Median sternotomy scar. HEENT: AT/NC. Pupils equal and round. No nasal drainage. MMM. Dentures in place. HEART: RRR with 1/6 ANTONY. LUNGS: CTAB without wheezes or crackles. ABDOMEN: +BS, soft, NT, ND. EXTREMITIES: No LE edema. 1+ pedal pulses. Calves supple and nontender. NEURO: Awake and alert. Oriented to person and place. Some expressive aphasia. Difficulty word-finding. UE and LE strength 5/5 bilaterally. Sensation intact bilaterally. PSYCH: Mood appears elevated. Patient laughing frequently. - Urinary Catheter Management Indwelling Urethral Catheter Cath placed during this visit: yes Reason for continuing: Other continuation reason Insertion date: 02/02/18 Insertion time: 03:00 Results - Labs CBC & Chem 7: 02/03/18 05:04 02/03/18 05:04 Laboratory Results - last 24 hr 02/02/18 02/02/18 02/02/18 10:16 10:16 10:16 WBC RBC Hgb Hct MCV MCH MCHC RDW Plt Count MPV Neut % (Auto) Lymph % (Auto) [place] % (Auto) Eos % (Auto) Baso % (Auto) Neut # (Auto) Lymph # (Auto) [place] # (Auto) Eos # (Auto) Baso # (Auto) WBC Differential Differential Comment APTT 31.1 Sodium Potassium Chloride Carbon Dioxide Anion Gap BUN Creatinine Estimated GFR Random Glucose Hemoglobin A1c 5.5 Calcium Total Bilirubin AST ALT Alkaline Phosphatase Troponin I Total Protein Albumin Triglycerides 84 Cholesterol 143 LDL Cholesterol, Calc 69 HDL Cholesterol 57.0 Cholesterol/HDL Ratio 2.50 02/02/18 02/02/18 02/02/18 12:13 17:32 23:38 WBC RBC Hgb Hct MCV MCH MCHC RDW Plt Count MPV Neut % (Auto) Lymph % (Auto) [place] % (Auto) Eos % (Auto) Baso % (Auto) Neut # (Auto) Lymph # (Auto) [place] # (Auto) Eos # (Auto) Baso # (Auto) WBC Differential Differential Comment APTT 40.4 H D 46.2 H Sodium Potassium Chloride Carbon Dioxide Anion Gap BUN Creatinine Estimated GFR Random Glucose Hemoglobin A1c Calcium Total Bilirubin AST ALT Alkaline Phosphatase Troponin I 3.87 H* Total Protein Albumin Triglycerides Cholesterol LDL Cholesterol, Calc HDL Cholesterol Cholesterol/HDL Ratio 02/03/18 02/03/18 05:04 05:04 WBC 16.9 H RBC 4.17 L Hgb 14.2 D Hct 41.3 MCV 99.0 MCH 34.1 H MCHC 34.4 RDW 13.0 Plt Count 204 MPV 9.2 Neut % (Auto) 62.2 Lymph % (Auto) 22.3 [place] % (Auto) 10.9 H Eos % (Auto) 4.0 Baso % (Auto) 0.6 Neut # (Auto) 10.5 H Lymph # (Auto) 3.8 [place] # (Auto) 1.9 H Eos # (Auto) 0.7 H Baso # (Auto) 0.1 WBC Differential . Differential Comment Auto diff final APTT Sodium 139 Potassium 3.9 Chloride 106 Carbon Dioxide 25.2 Anion Gap 8 BUN 17 Creatinine 0.75 Estimated GFR Greater than 89 Random Glucose 141 H Hemoglobin A1c Calcium 8.1 L Total Bilirubin 1.3 H AST 77 H ALT 24 Alkaline Phosphatase 82 Troponin I Total Protein 6.1 L D Albumin 3.0 L Triglycerides Cholesterol LDL Cholesterol, Calc HDL Cholesterol Cholesterol/HDL Ratio - Imaging Impressions Carotid Doppler Study 02/02/18 10:58 CONCLUSION: No evidence of flow-limiting carotid stenosis. Assessment and Plan - Assessment (1) Encephalopathy Code(s): G93.40 - Encephalopathy, unspecified Status: Acute (2) NSTEMI (non-ST elevated myocardial infarction) Code(s): I21.4 - Non-ST elevation (NSTEMI) myocardial infarction Status: Acute (3) Lumbar compression fracture Code(s): S32.000A - Wedge compression fracture of unspecified lumbar vertebra, initial encounter for closed fracture Status: Acute (4) Leukocytosis Code(s): D72.829 - Elevated white blood cell count, unspecified Status: Acute - Plan 82 year OLD male with history of HTN, HLD, CAD s/p CABG, h/o pacemaker , h/o AVR and recent L4 compression fracture admitted for confusion and altered mental status after his noted he speech was "gurgled" and he wasn't making any sense. 1. Altered mental status/encephalopathy - CT head negative except for diffuse age-appropriate atrophy - Concern for possible CVA vs. medication side effect since recently on Baclofen which can be dangerous in the elderly - Troponins elevated - No UTI and CXR negative for pneumonia - Pacemaker precludes MRI - Carotid U/S with no evidence of flow-limiting carotid stenosis - 2D echo with EF 50-55% and inferior hypokinesis, [id number] mitral regurg, PAP 50.4 mmHg - Neurology consulted, ordered repeat CT head for this AM. Has not been done yet - NS at 70 ml/hr - PT/ST/OT - Continue ASA - Lipid panel is essentially perfect - A1c 5.5 2. Elevated troponin/NSTEMI - Troponins: 2.85 > 4.81 > 3.87 - No chest pain or renal insufficiency - Cardiology consulted - Pt still on heparin gtt - Will await Dr. Mckeon's recommendations today - Continue ASA - BB initially held secondary to bradycardia but will now rseume 3. L4 acute compression fracture - L-spine CT showing mild compression deformity of the L4 vertebral body with slight retropulsion of the superior endplate by 6 mm. No other fractures identified. There is also coronal fracture through the anterior third of the L4 vertebral body without displacement. No interval change since the 15 - Vitamin D level pending - PT - Conservative management at this time - Pain control - Resume home nasal calcitonin 4. Leukocytosis - WBC 22.4 on admission, down to 16 - No signs of infection, afebrile, U/A negative, CXR negative - Likely secondary to steroid use from compression fracture 5. Bradycardia - resolved - Patient with pacemaker in place - Resume home metoprolol - Cardiology following DVT prophylaxis: on heparin gtt Discharge Planning: Pending further neurologic work-up, recommendations from specialists
[2018-02-03] MEDS: Senna/Docusate Sodium 8.6/50 MG Tablet PO SCH ×2 (09:18→21:52)
[2018-02-03] MEDS: Sodium Chloride 0.9% 2 ML Flush BID IV.FLUSH SCH ×2 (09:18→21:52)
[2018-02-03] MEDS ORDERED: Acetaminophen Inj 650 MG/65 ML VIAL IV.SIG SCH (10:00)
--- NOTE | 2018-02-03 10:35 | P.PNNEU ---
Subjective Subjective Comments: No cp, no dyspnea, no branham, no focal weakness, no vision loss Active Medications: Active Medications Acetaminophen (Tylenol) 650 mg PO Q4H PRN PRN Reason: Temp > 100.4 Hydrocodone Bitart/Acetaminophen ([place] 5/325) 1 tab PO Q6H PRN PRN Reason: PAIN SCALE 1 TO 5 Hydrocodone Bitart/Acetaminophen ([place] 5/325) 2 tab PO Q6H PRN PRN Reason: PAIN SCALE 6 TO 10 Al Hydroxide/Mg Hydroxide (Milk Of Magnesia Liq) 30 ml PO Q12H PRN PRN Reason: Mild Constipation Aspirin (Aspirin Chew) 81 mg PO DAILY [facility] Last Admin: 02/03/18 09:18 Dose: 81 mg Bisacodyl (Dulcolax Supp) 10 mg RECTAL DAILY PRN PRN Reason: SEVERE CONSITIPATION Calcitonin Drake (Calcitonin Drake Nasal) 1 sprays NASAL DAILY [facility] Heparin Sodium/Dextrose (Heparin/D5w 25,000 U/250 Ml) 25,000 unit in 250 mls @ 10 mls/hr IV.CONT TITRATE PRN; Protocol PRN Reason: Per Protocol Last Admin: 02/02/18 22:56 Dose: 1,100 units/hr, 11 mls/hr Acetaminophen (Ofirmev Inj) 1,000 mg in 100 mls @ 400 mls/hr IV.SIG Q8H [facility] Stop: 02/04/18 02:14 Lactulose (Lactulose Liq) 30 ml PO DAILY PRN PRN Reason: SEVERE CONSITIPATION Metoprolol Tartrate (Lopressor) 25 mg PO BID [facility] Morphine Sulfate (Morphine Inj) 2 mg IV.PUSH Q4H PRN PRN Reason: BREAKTHROUGH PAIN Last Admin: 02/03/18 05:04 Dose: 2 mg Ondansetron HCl (Zofran Inj) 4 mg IV.PUSH Q6H PRN PRN Reason: NAUSEA OR VOMITING Senna/Docusate Sodium (Nataliya-Colace) 1 tab PO BID [facility] Last Admin: 02/03/18 09:18 Dose: 1 tab Sennosides (Senokot) 17.2 mg PO Q12H PRN PRN Reason: Moderate Constipation Sodium Chloride (Ns Flush) 2 ml IV.FLUSH BID [facility] Last Admin: 02/03/18 09:18 Dose: 2 ml Sodium Chloride (Ns Flush) 2 ml IV.FLUSH PRN PRN PRN Reason: FLUSH AFTER USING IV ACCESS Allergies/Adverse Reactions: Allergies Allergy/AdvReac Type Severity Reaction Status Date / Time shellfish derived Allergy Severe Verified 02/08/17 14:44 Sulfa (Sulfonamide Allergy Severe Verified 02/08/17 14:44 Antibiotics) latex AdvReac Unknown Verified 02/05/17 15:20 Review of Systems All other systems reviewed negative except as stated in HPI Physical Exam Vital signs: Vital Signs 02/02/18 11:00 02/02/18 12:00 02/02/18 13:00 Temperature 98.8 F Pulse Rate 59 L 60 60 Respiratory Rate 18 Blood Pressure 144/63 H Pulse Oximetry 97 02/02/18 14:00 02/02/18 15:00 02/02/18 16:00 Temperature 97.8 F Pulse Rate 60 89 103 H Respiratory Rate 18 Blood Pressure 138/67 Pulse Oximetry 97 02/02/18 17:00 02/02/18 18:00 02/02/18 19:00 Temperature 98.2 F Pulse Rate 67 67 62 Respiratory Rate 16 Blood Pressure 127/59 L Pulse Oximetry 02/02/18 20:00 02/02/18 21:00 02/02/18 21:52 Temperature Pulse Rate 62 102 H Respiratory Rate 16 Blood Pressure Pulse Oximetry 99 02/02/18 22:00 02/02/18 23:00 02/02/18 23:25 Temperature 98.2 F Pulse Rate 62 62 Respiratory Rate 16 16 Blood Pressure 135/63 Pulse Oximetry 02/03/18 00:00 02/03/18 01:00 02/03/18 02:00 Temperature Pulse Rate 50 L 100 H 96 H Respiratory Rate Blood Pressure Pulse Oximetry 02/03/18 03:00 02/03/18 04:00 02/03/18 05:00 Temperature 98.1 F Pulse Rate 98 H 92 H 94 H Respiratory Rate 16 Blood Pressure 132/62 Pulse Oximetry 02/03/18 05:36 02/03/18 06:00 02/03/18 07:00 Temperature 98.3 F Pulse Rate 88 88 Respiratory Rate 16 16 Blood Pressure 116/59 L Pulse Oximetry 95 02/03/18 09:10 Temperature Pulse Rate Respiratory Rate Blood Pressure Pulse Oximetry 96 Intake & Output 02/02/18 02/03/18 02/03/18 18:59 06:59 18:59 Intake Total 480 / 480 1730 / 1730 Output Total 650 / 650 890 / 890 Balance -170 / -170 840 / 840 Weight 85 kg Intake: IV 1250 / 1250 Heparin/D5W 25,000 U/250 mL 25, 250 / 250 000 unit In 250 ml @ 1,000 UNITS/HR 10 mls/hr IV.CONT TITRATE PRN Rx#:[id number] NS Inj 1,000 ML @ 70 mls/hr IV. 1000 / 1000 CONT .[id number] TIANNA Rx#:[id number] Oral 480 / 480 480 / 480 Output: Urine Amount (Catheter) 650 / 650 890 / 890 Indwelling Urethral Catheter 650 / 650 890 / 890 Other: Date of Last Bowel Movement 02/01/18 02/01/18 Narrative: GENERAL: in NAD, SKIN: Warm and dry. HEAD: Atraumatic. Normocephalic. EYES: Pupils equal and round. No scleral icterus. ENT: No nasal bleeding or discharge. NECK: Trachea midline. No JVD. CARDIOVASCULAR: Regular rate and rhythm. RESPIRATORY: No accessory muscle use. GASTROINTESTINAL: Abdomen soft, non-tender, nondistended. MUSCULOSKELETAL: Extremities without clubbing, cyanosis, or edema. No obvious deformities. NEUROLOGICAL: Awake and alert. Oriented 2-3, Not to date, able to name [facility], pcp, some disfluency, able name simple objects, no hinduism tenderness , can follow simple motor requests, no facial asymmetry, OU 3-2mm, eomi, VFF, No drift, Motor grossly within normal limits. Five out of 5 muscle strength in the arms and legs. Tone normal in all 4 limbs, Sensory normal in all 4 extremities to pin, msr 1-2+ sym, no clonus, planterflexor, PSYCHIATRIC: Calm, appropriate. humorous - Constitutional no acute distress - Routine HEENT Exam Head: Present: normocephalic Eye: Present: EOMI - Urinary Catheter Management Indwelling Urethral Catheter Cath placed during this visit: yes Reason for continuing: Other continuation reason Insertion date: 02/02/18 Insertion time: 03:00 Objective Laboratory Results - last 24 hr 02/02/18 02/02/18 02/02/18 10:16 10:16 10:16 WBC RBC Hgb Hct MCV MCH MCHC RDW Plt Count MPV Neut % (Auto) Lymph % (Auto) [place] % (Auto) Eos % (Auto) Baso % (Auto) Neut # (Auto) Lymph # (Auto) [place] # (Auto) Eos # (Auto) Baso # (Auto) WBC Differential Differential Comment APTT 31.1 Sodium Potassium Chloride Carbon Dioxide Anion Gap BUN Creatinine Estimated GFR Random Glucose Hemoglobin A1c 5.5 Calcium Total Bilirubin AST ALT Alkaline Phosphatase Troponin I Total Protein Albumin Triglycerides 84 Cholesterol 143 LDL Cholesterol, Calc 69 HDL Cholesterol 57.0 Cholesterol/HDL Ratio 2.50 02/02/18 02/02/18 02/02/18 12:13 17:32 23:38 WBC RBC Hgb Hct MCV MCH MCHC RDW Plt Count MPV Neut % (Auto) Lymph % (Auto) [place] % (Auto) Eos % (Auto) Baso % (Auto) Neut # (Auto) Lymph # (Auto) [place] # (Auto) Eos # (Auto) Baso # (Auto) WBC Differential Differential Comment APTT 40.4 H D 46.2 H Sodium Potassium Chloride Carbon Dioxide Anion Gap BUN Creatinine Estimated GFR Random Glucose Hemoglobin A1c Calcium Total Bilirubin AST ALT Alkaline Phosphatase Troponin I 3.87 H* Total Protein Albumin Triglycerides Cholesterol LDL Cholesterol, Calc HDL Cholesterol Cholesterol/HDL Ratio 02/03/18 02/03/18 05:04 05:04 WBC 16.9 H RBC 4.17 L Hgb 14.2 D Hct 41.3 MCV 99.0 MCH 34.1 H MCHC 34.4 RDW 13.0 Plt Count 204 MPV 9.2 Neut % (Auto) 62.2 Lymph % (Auto) 22.3 [place] % (Auto) 10.9 H Eos % (Auto) 4.0 Baso % (Auto) 0.6 Neut # (Auto) 10.5 H Lymph # (Auto) 3.8 [place] # (Auto) 1.9 H Eos # (Auto) 0.7 H Baso # (Auto) 0.1 WBC Differential . Differential Comment Auto diff final APTT Sodium 139 Potassium 3.9 Chloride 106 Carbon Dioxide 25.2 Anion Gap 8 BUN 17 Creatinine 0.75 Estimated GFR Greater than 89 Random Glucose 141 H Hemoglobin A1c Calcium 8.1 L Total Bilirubin 1.3 H AST 77 H ALT 24 Alkaline Phosphatase 82 Troponin I Total Protein 6.1 L D Albumin 3.0 L Triglycerides Cholesterol LDL Cholesterol, Calc HDL Cholesterol Cholesterol/HDL Ratio Review/Management - Diagnosis (1) Encephalopathy Code(s): G93.40 - Encephalopathy, unspecified Status: Acute Current Visit: Yes (2) Pacemaker Code(s): Z95.0 - Presence of cardiac pacemaker Status: Acute Current Visit: Yes (3) NSTEMI (non-ST elevated myocardial infarction) Code(s): I21.4 - Non-ST elevation (NSTEMI) myocardial infarction Status: Acute Current Visit: Yes (4) Lumbar compression fracture Code(s): S32.000A - Wedge compression fracture of unspecified lumbar vertebra, initial encounter for closed fracture Status: Acute Current Visit: Yes (5) Leukocytosis Code(s): D72.829 - Elevated white blood cell count, unspecified Status: Acute Current Visit: Yes - Review/Management Plan: Mild disorientation and disfluency. He may have sustained a tiny left frontotemporal infarct commitment with non-STEMI Other consideration would include medication effect secondary to baclofen Initial CT brain scan negative for any acute lesion. Unable to obtain an MRI due to having a pacemaker carotids nml On heparin drip for STEMI Suspected steroid-induced leukocytosis- improving EEG-abnormal- frontal isolated sharps. ? 2/2 recent baclofen use Recommendation Repeat CT scan in the a.m.-pending mental status better then yesterday. hold off on lp will add iv cerebryx for eeg findings and possibility of sz activity causing confusion Follow exam Discussed with patient, medical Behavioral modification and risk factor reduction. Weight loss, blood pressure control, blood sugar control, lipid control. Exercise
[2018-02-03 11:20] LABS: C-Reactive Protein 1.73 mg/dL (0.00-0.30)
[2018-02-03 11:45] LABS: Thyroid Stimulating Hormone 1.2 uIU/mL (0.358-3.740)
--- NOTE | 2018-02-03 13:00 | CT ---
EXAM DATE: 02/03/2018 12:47 PM EST AGE/SEX: 82 years / Male INDICATIONS: Altered mental status. CLINICAL DATA: This is the patient's initial encounter. Patient reports that signs and symptoms have been present for 1 day and indicates a pain score of 7/10. MEDICAL/SURGICAL HISTORY: Carcinoma, skin cancer. Pacemaker. aortic valve replacement RADIATION DOSE: 49.86 CTDI (mGy) COMPARISON: [facility] – [place], CT HEAD W/O CONTRAST, 02/02/2018. . TECHNIQUE: CT of the head without contrast. Using automated exposure control and adjustment of the mA and/or kV according to patient size, radiation dose was kept as low as reasonably achievable to ob tain optimal diagnostic quality images. DICOM format image data is available electronically for revi ew and comparison. FINDINGS: Cerebrum: The ventricles are normal for age. No evidence of midline shift, mass lesion, hemorrhage or acute infarction. No extraaxial fluid collections are seen. Posterior Fossa: The cerebellum and brainstem are intact. The 4th ventricle is midline. The cerebe llopontine angle is unremarkable. Extracranial: The visualized portion of the orbits is intact. Skull: The calvaria is intact. No evidence of skull fracture. CONCLUSION: 1. Stable exam. 2. No evidence of acute infarct, hemorrhage, mass or edema. . Electronically signed by: Jerry Zabala MD 02/03/2018 12:58 PM EST
[2018-02-03] MEDS: Calcitonin Salmon Nasal 200 UNITS/Actuation - (3.7 ML) NASAL SCH (17:44)
[2018-02-03] MEDS: Fosphenytoin Inj 200 MGPE in Sodium Chlor 0.9% Inj 50 ML IV.SIG SCH ×2 (17:44→21:52)
[2018-02-03] MEDS: Metoprolol Tartrate 25 MG Tablet PO SCH (21:52)
[2018-02-03] MEDS: Heparin Drip 25,000 UNIT/250 ML BAG IV.CONT PRN (22:00)
--- NOTE | 2018-02-03 22:42 | ECG ---
Date Performed: 02/02/2018 Time Performed: 07:47:28 PTAGE: 82 years EKG: Ventricular pacing Pacemaker rhythm - no further analysis Abnormal ECG Since the PREVIOUS TRACING , no significant change noted DOCTOR: Alba Purcell Interpretating Date/Time 02/03/2018 22:40:16
[2018-02-04 04:54] LABS: Hematocrit 41.4 % (39.0-51.0); Mean Corpuscular HGB Conc 33.9 % (32.0-36.0); Mean Corpuscular Hemoglobin 33.5 pg (27.0-34.0); Mean Corpuscular Volume 98.9 fL (80.0-100.0); Mean Platelet Volume 9.2 fL (7.0-11.0); Platelet Count 188 th/mm3 (150-450); Red Blood Count 4.18 mil/mm3 (4.50-5.90); White Blood Count 16.8 th/mm3 (4.0-11.0)
[2018-02-04 05:17] LABS: Albumin 2.8 g/dL (3.4-5.0); Anion Gap 8 meq/L (5-15); Aspartate Aminotransferase 53 U/L (15-37); Blood Urea Nitrogen 13 mg/dL (7-18); Calcium 8.3 mg/dL (8.5-10.1); Carbon Dioxide 25.3 meq/L (21.0-32.0); Chloride 104 meq/L (98-107); Glomerular Filtration Rate Greater Than 89 mL/min (>89); Glucose,Random 141 mg/dL (74-106); Potassium 3.9 meq/L (3.5-5.1); Sodium 137 meq/L (136-145)
[2018-02-04 05:18] LABS: Alanine Aminotransferase 24 U/L (12-78)
[2018-02-04 05:20] LABS: Alkaline Phosphatase 110 U/L (45-117); Total Protein 6.2 g/dL (6.4-8.2)
--- NOTE | 2018-02-04 07:43 | P.PNNEU ---
Subjective Subjective Comments: no branham, no cp, no dyspnea, no focal weakness. feeling well Active Medications: Active Medications Acetaminophen (Tylenol) 650 mg PO Q4H PRN PRN Reason: Temp > 100.4 Hydrocodone Bitart/Acetaminophen ([place] 5/325) 1 tab PO Q6H PRN PRN Reason: PAIN SCALE 1 TO 5 Hydrocodone Bitart/Acetaminophen ([place] 5/325) 2 tab PO Q6H PRN PRN Reason: PAIN SCALE 6 TO 10 Al Hydroxide/Mg Hydroxide (Milk Of Magnesia Liq) 30 ml PO Q12H PRN PRN Reason: Mild Constipation Aspirin (Aspirin Chew) 81 mg PO DAILY [facility] Last Admin: 02/03/18 09:18 Dose: 81 mg Bisacodyl (Dulcolax Supp) 10 mg RECTAL DAILY PRN PRN Reason: SEVERE CONSITIPATION Calcitonin [place] (Calcitonin [place] Nasal) 1 sprays NASAL DAILY [facility] Last Admin: 02/03/18 17:44 Dose: Not Given Heparin Sodium/Dextrose (Heparin/D5w 25,000 U/250 Ml) 25,000 unit in 250 mls @ 10 mls/hr IV.CONT TITRATE PRN; Protocol PRN Reason: Per Protocol Last Admin: 02/03/18 22:00 Dose: 1,100 units/hr, 11 mls/hr Fosphenytoin Sodium 200 mgpe/ (Sodium Chloride) 54 mls @ 216 mls/hr IV.SIG Q12HR [facility] Last Infusion: 02/03/18 22:55 Dose: Infused Lactulose (Lactulose Liq) 30 ml PO DAILY PRN PRN Reason: SEVERE CONSITIPATION Metoprolol Tartrate (Lopressor) 25 mg PO BID [facility] Last Admin: 02/03/18 21:52 Dose: 25 mg Morphine Sulfate (Morphine Inj) 2 mg IV.PUSH Q4H PRN PRN Reason: BREAKTHROUGH PAIN Last Admin: 02/03/18 05:04 Dose: 2 mg Ondansetron HCl (Zofran Inj) 4 mg IV.PUSH Q6H PRN PRN Reason: NAUSEA OR VOMITING Senna/Docusate Sodium (Nataliya-Colace) 1 tab PO BID [facility] Last Admin: 02/03/18 21:52 Dose: 1 tab Sennosides (Senokot) 17.2 mg PO Q12H PRN PRN Reason: Moderate Constipation Sodium Chloride (Ns Flush) 2 ml IV.FLUSH BID [facility] Last Admin: 02/03/18 21:52 Dose: 2 ml Sodium Chloride (Ns Flush) 2 ml IV.FLUSH PRN PRN PRN Reason: FLUSH AFTER USING IV ACCESS Allergies/Adverse Reactions: Allergies Allergy/AdvReac Type Severity Reaction Status Date / Time shellfish derived Allergy Severe Verified 02/08/17 14:44 Sulfa (Sulfonamide Allergy Severe Verified 02/08/17 14:44 Antibiotics) latex AdvReac Unknown Verified 02/05/17 15:20 Review of Systems All other systems reviewed negative except as stated in HPI Physical Exam Vital signs: Vital Signs 02/03/18 08:00 02/03/18 09:00 02/03/18 09:10 Temperature Pulse Rate 105 H 68 Respiratory Rate Blood Pressure Pulse Oximetry 96 02/03/18 10:00 02/03/18 11:00 02/03/18 12:00 Temperature 97.9 F Pulse Rate 69 69 69 Respiratory Rate 17 Blood Pressure 118/62 Pulse Oximetry 97 02/03/18 14:00 02/03/18 15:00 02/03/18 17:00 Temperature 98.0 F Pulse Rate 60 60 72 Respiratory Rate 16 Blood Pressure 118/62 Pulse Oximetry 97 02/03/18 18:00 02/03/18 19:00 02/03/18 19:36 Temperature 98.7 F Pulse Rate 70 99 H Respiratory Rate 18 Blood Pressure 122/65 Pulse Oximetry 94 L 97 02/03/18 20:00 02/03/18 21:00 02/03/18 22:00 Temperature Pulse Rate 72 79 70 Respiratory Rate Blood Pressure Pulse Oximetry 97 02/03/18 23:00 02/03/18 23:56 02/04/18 01:00 Temperature 98.5 F Pulse Rate 79 76 76 Respiratory Rate 18 Blood Pressure 134/70 Pulse Oximetry 97 02/04/18 02:00 02/04/18 03:00 02/04/18 04:00 Temperature 97.4 F L Pulse Rate 78 75 75 Respiratory Rate 18 Blood Pressure 125/58 L Pulse Oximetry 94 L 02/04/18 04:48 02/04/18 05:00 02/04/18 06:00 Temperature Pulse Rate 75 78 Respiratory Rate 18 Blood Pressure Pulse Oximetry 02/04/18 07:00 Temperature 97.3 F L Pulse Rate 82 Respiratory Rate 17 Blood Pressure 154/73 H Pulse Oximetry 99 Intake & Output 02/03/18 02/04/18 02/04/18 18:59 06:59 18:59 Intake Total 2924 / 2924 Output Total 500 / 500 1750 / 1750 Balance -446 / -446 1174 / 1174 Weight 84.5 kg Intake: IV 2504 / 2504 Heparin/D5W 25,000 U/250 mL 25, 250 / 250 000 unit In 250 ml @ 1,000 UNITS/HR 10 mls/hr IV.CONT TITRATE PRN Rx#:[id number] Ofirmev Inj 1,000 mg In 100 ml 200 / 200 @ 400 mls/hr IV.SIG Q8H [facility] Rx# :[id number] Cerebyx Inj 200 MGPE In NS Inj 54 50 ML @ 216 mls/hr IV.SIG Q12HR [facility] Rx#:[id number] Oral 420 / 420 Output: Urine Amount (Catheter) 500 / 500 1750 / 1750 Indwelling Urethral Catheter 500 / 500 1750 / 1750 Other: Date of Last Bowel Movement 02/03/18 # Bowel Movements 1 Narrative: GENERAL: in NAD, SKIN: Warm and dry. HEAD: Atraumatic. Normocephalic. EYES: Pupils equal and round. No scleral icterus. ENT: No nasal bleeding or discharge. NECK: Trachea midline. No JVD. CARDIOVASCULAR: Regular rate and rhythm. RESPIRATORY: No accessory muscle use. GASTROINTESTINAL: Abdomen soft, non-tender, nondistended. MUSCULOSKELETAL: Extremities without clubbing, cyanosis, or edema. back brace on NEUROLOGICAL: Awake and alert. sitting up get eeg performed, Oriented 2-3, initially stated October then changed to NOV. 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 Five out of 5 muscle strength in the arms and legs. Tone normal in all 4 limbs, Sensory normal in all 4 extremities to pin, msr 1-2+ sym, no clonus, planterflexor, PSYCHIATRIC: Calm, appropriate. humorous - Constitutional no acute distress - Routine HEENT Exam Head: Present: normocephalic - Urinary Catheter Management Indwelling Urethral Catheter Cath placed during this visit: yes Reason for continuing: Other continuation reason Insertion date: 02/02/18 Insertion time: 03:00 Objective Laboratory Results - last 24 hr 02/03/18 02/03/18 02/03/18 05:04 05:04 05:04 WBC RBC Hgb Hct MCV MCH MCHC RDW Plt Count MPV ESR 7 APTT Sodium Potassium Chloride Carbon Dioxide Anion Gap BUN Creatinine Estimated GFR Random Glucose Calcium Total Bilirubin AST ALT Alkaline Phosphatase C-Reactive Protein 1.73 H Total Protein Albumin Vitamin B12 1226 H TSH 1.200 Phenytoin Less than 0.4 L 02/04/18 02/04/18 02/04/18 04:25 04:25 04:25 WBC 16.8 H RBC 4.18 L Hgb 14.0 Hct 41.4 MCV 98.9 MCH 33.5 MCHC 33.9 RDW 13.0 Plt Count 188 MPV 9.2 ESR APTT 51.3 H Sodium 137 Potassium 3.9 Chloride 104 Carbon Dioxide 25.3 Anion Gap 8 BUN 13 Creatinine 0.59 L Estimated GFR Greater than 89 Random Glucose 141 H Calcium 8.3 L Total Bilirubin 1.2 H AST 53 H ALT 24 Alkaline Phosphatase 110 C-Reactive Protein Total Protein 6.2 L Albumin 2.8 L Vitamin B12 TSH Phenytoin Review/Management - Diagnosis (1) Encephalopathy Code(s): G93.40 - Encephalopathy, unspecified Status: Acute Current Visit: Yes (2) Pacemaker Code(s): Z95.0 - Presence of cardiac pacemaker Status: Acute Current Visit: Yes (3) NSTEMI (non-ST elevated myocardial infarction) Code(s): I21.4 - Non-ST elevation (NSTEMI) myocardial infarction Status: Acute Current Visit: Yes (4) Lumbar compression fracture Code(s): S32.000A - Wedge compression fracture of unspecified lumbar vertebra, initial encounter for closed fracture Status: Acute Current Visit: Yes (5) Leukocytosis Code(s): D72.829 - Elevated white blood cell count, unspecified Status: Acute Current Visit: Yes - Review/Management Plan: Mild disorientation and disfluency. He may have sustained a tiny left frontotemporal infarct commitment with non-STEMI Other consideration would include medication effect secondary to baclofen Initial CT brain scan negative for any acute lesion. Unable to obtain an MRI due to having a pacemaker carotids nml On heparin drip for STEMI Suspected steroid-induced leukocytosis- improving EEG-abnormal- frontal isolated sharps. ? 2/2 recent baclofen use repeat eeg- negative Recommendation Repeat CT scan in the a.m.-stable eeg- this am- no further sharp waves. looks better mental status stable and eeg improved. hold off on lp continue dilantin for now. will look at dc'ing outpatient Follow exam d/c planning once cleared by medical and cardiology Discussed with patient, medical Behavioral modification and risk factor reduction. Weight loss, blood pressure control, blood sugar control, lipid control. Exercise
[2018-02-04] MEDS: Fosphenytoin Inj 200 MGPE in Sodium Chlor 0.9% Inj 50 ML IV.SIG SCH (09:08)
[2018-02-04] MEDS: Metoprolol Tartrate 25 MG Tablet PO SCH ×2 (09:08→21:07)
[2018-02-04] MEDS: Senna/Docusate Sodium 8.6/50 MG Tablet PO SCH ×2 (09:08→21:07)
[2018-02-04] MEDS: Calcitonin Salmon Nasal 200 UNITS/Actuation - (3.7 ML) NASAL SCH (09:09)
[2018-02-04] MEDS: Sodium Chloride 0.9% 2 ML Flush BID IV.FLUSH SCH ×2 (09:09→21:07)
--- NOTE | 2018-02-04 10:21 | P.PNIM ---
Subjective Interval history: Patient reports he is feeling okay today. Discussed with RN. He is having less periods of confusions. He is more appropriate today. He has no specific complaints today. Physical Exam Vital signs: Vital Signs 02/03/18 11:00 02/03/18 12:00 02/03/18 14:00 Temperature 97.9 F Pulse Rate 69 69 60 Respiratory Rate 17 Blood Pressure 118/62 Pulse Oximetry 97 02/03/18 15:00 02/03/18 17:00 02/03/18 18:00 Temperature 98.0 F Pulse Rate 60 72 70 Respiratory Rate 16 Blood Pressure 118/62 Pulse Oximetry 97 02/03/18 19:00 02/03/18 19:36 02/03/18 20:00 Temperature 98.7 F Pulse Rate 99 H 72 Respiratory Rate 18 Blood Pressure 122/65 Pulse Oximetry 94 L 97 97 02/03/18 21:00 02/03/18 22:00 02/03/18 23:00 Temperature 98.5 F Pulse Rate 79 70 79 Respiratory Rate 18 Blood Pressure 134/70 Pulse Oximetry 97 02/03/18 23:56 02/04/18 01:00 02/04/18 02:00 Temperature Pulse Rate 76 76 78 Respiratory Rate Blood Pressure Pulse Oximetry 02/04/18 03:00 02/04/18 04:00 02/04/18 04:48 Temperature 97.4 F L Pulse Rate 75 75 Respiratory Rate 18 18 Blood Pressure 125/58 L Pulse Oximetry 94 L 02/04/18 05:00 02/04/18 06:00 02/04/18 07:00 Temperature 97.3 F L Pulse Rate 75 78 82 Respiratory Rate 17 Blood Pressure 154/73 H Pulse Oximetry 99 02/04/18 07:49 02/04/18 08:40 Temperature Pulse Rate 81 Respiratory Rate Blood Pressure Pulse Oximetry 96 97 Intake & Output 02/03/18 02/04/18 02/04/18 18:59 06:59 18:59 Intake Total 54 / 54 2924 / 2924 Output Total 500 / 500 1750 / 1750 Balance -446 / -446 1174 / 1174 Weight 84.5 kg Intake: IV 54 / 54 2504 / 2504 Heparin/D5W 25,000 U/250 mL 25, 250 / 250 000 unit In 250 ml @ 1,000 UNITS/HR 10 mls/hr IV.CONT TITRATE PRN Rx#:[id number] Ofirmev Inj 1,000 mg In 100 ml 200 / 200 @ 400 mls/hr IV.SIG Q8H [facility] Rx# :[id number] Cerebyx Inj 200 MGPE In NS Inj 54 / 54 54 / 54 50 ML @ 216 mls/hr IV.SIG Q12HR [facility] Rx#:[id number] Oral 420 / 420 Output: Urine Amount (Catheter) 500 / 500 1750 / 1750 Indwelling Urethral Catheter 500 / 500 1750 / 1750 Other: Date of Last Bowel Movement 02/03/18 # Bowel Movements 1 Narrative: GENERAL: Elderly male in no acute distress HEART: RRR with 1/6 ANTONY. LUNGS: CTAB without wheezes or crackles. ABDOMEN: +BS, soft, NT, ND. EXTREMITIES: No LE edema. 1+ pedal pulses. NEURO: Awake and alert. Oriented to person and place. Some expressive, very subtle intermittent expressive aphasia and difficulty with word-finding. UE and LE strength 5/5 bilaterally. Sensation intact bilaterally. PSYCH: Mood appears appropriate. - Urinary Catheter Management Indwelling Urethral Catheter Cath placed during this visit: yes Reason for continuing: Other continuation reason Insertion date: 02/02/18 Insertion time: 03:00 Results - Labs CBC & Chem 7: 02/04/18 04:25 02/04/18 04:25 Laboratory Results - last 24 hr 02/03/18 02/03/18 02/03/18 05:04 05:04 05:04 WBC RBC Hgb Hct MCV MCH MCHC RDW Plt Count MPV ESR 7 APTT Sodium Potassium Chloride Carbon Dioxide Anion Gap BUN Creatinine Estimated GFR Random Glucose Calcium Total Bilirubin AST ALT Alkaline Phosphatase C-Reactive Protein 1.73 H Total Protein Albumin Vitamin B12 1226 H TSH 1.200 Phenytoin Less than 0.4 L 02/04/18 02/04/18 02/04/18 04:25 04:25 04:25 WBC 16.8 H RBC 4.18 L Hgb 14.0 Hct 41.4 MCV 98.9 MCH 33.5 MCHC 33.9 RDW 13.0 Plt Count 188 MPV 9.2 ESR APTT 51.3 H Sodium 137 Potassium 3.9 Chloride 104 Carbon Dioxide 25.3 Anion Gap 8 BUN 13 Creatinine 0.59 L Estimated GFR Greater than 89 Random Glucose 141 H Calcium 8.3 L Total Bilirubin 1.2 H AST 53 H ALT 24 Alkaline Phosphatase 110 C-Reactive Protein Total Protein 6.2 L Albumin 2.8 L Vitamin B12 TSH Phenytoin - Imaging Impressions Head CT 02/03/18 06:00 CONCLUSION: 1. Stable exam. 2. No evidence of acute infarct, hemorrhage, mass or edema. . Assessment and Plan - Assessment (1) Encephalopathy Code(s): G93.40 - Encephalopathy, unspecified Status: Acute (2) NSTEMI (non-ST elevated myocardial infarction) Code(s): I21.4 - Non-ST elevation (NSTEMI) myocardial infarction Status: Acute (3) Lumbar compression fracture Code(s): S32.000A - Wedge compression fracture of unspecified lumbar vertebra, initial encounter for closed fracture Status: Acute (4) Leukocytosis Code(s): D72.829 - Elevated white blood cell count, unspecified Status: Acute - Plan 82 year OLD male with history of HTN, HLD, CAD s/p CABG, h/o pacemaker , h/o AVR and recent L4 compression fracture admitted for confusion and altered mental status after his noted he speech was "gurgled" and he wasn't making any sense. 1. Altered mental status/encephalopathy: Improving - CT head negative except for diffuse age-appropriate atrophy - Concern for possible CVA vs. medication side effect since recently on Baclofen. Repeat head CT is negative. - Troponins elevated - No UTI and CXR negative for pneumonia -Cannot have MRI due to pacemaker. - Carotid U/S with no evidence of flow-limiting carotid stenosis - 2D echo with EF 50-55% and inferior hypokinesis, [id number] mitral regurge, PAP 50.4 mmHg. Pacemaker leads noted to be in the atrial cavity. Deferred to cardiology. - Appreciate Neurology input, S/P IV Cerebyx ordered for possible seizure activities. On Dilantin. - PT/ST/OT - Continue ASA - Lipid panel unremarkable - A1c 5.5 2. Elevated troponin/NSTEMI - Troponins: 2.85 > 4.81 > 3.87 - No chest pain or renal insufficiency - Cardiology consulted - Pt on heparin gtt - Awaiting Cardiology input. - Continue ASA, BB 3. L4 acute compression fracture - L-spine CT showing mild compression deformity of the L4 vertebral body with slight retropulsion of the superior endplate by 6 mm. No other fractures identified. There is also coronal fracture through the anterior third of the L4 vertebral body without displacement. No interval change since the 15 - Vitamin D level pending - PT - Conservative management at this time - Pain control - Resume home nasal calcitonin - TLSO brace as needed for comfort. 4. Leukocytosis - WBC 22.4 on admission,trended down - No signs of infection, afebrile, U/A negative, CXR negative - Likely secondary to steroid use from compression fracture 5. Bradycardia - resolved - Patient with pacemaker in place - Continue home metoprolol - Cardiology following DVT prophylaxis: on heparin gtt Discharge Planning: OK to move to med/surg if ok with Cardiology.
--- NOTE | 2018-02-04 14:38 | P.PNCA ---
Subjective Interval history: No CP or SOB, MS improving Medications and Allergies Active Medications: Active Medications Acetaminophen (Tylenol) 650 mg PO Q4H PRN PRN Reason: Temp > 100.4 Hydrocodone Bitart/Acetaminophen ([place] 5/325) 1 tab PO Q6H PRN PRN Reason: PAIN SCALE 1 TO 5 Last Admin: 02/04/18 12:37 Dose: 1 tab Hydrocodone Bitart/Acetaminophen ([place] 5/325) 2 tab PO Q6H PRN PRN Reason: PAIN SCALE 6 TO 10 Al Hydroxide/Mg Hydroxide (Milk Of Magnesia Liq) 30 ml PO Q12H PRN PRN Reason: Mild Constipation Aspirin (Aspirin Chew) 81 mg PO DAILY [facility] Last Admin: 02/04/18 09:08 Dose: 81 mg Bisacodyl (Dulcolax Supp) 10 mg RECTAL DAILY PRN PRN Reason: SEVERE CONSITIPATION Calcitonin [place] (Calcitonin [place] Nasal) 1 sprays NASAL DAILY [facility] Last Admin: 02/04/18 09:09 Dose: Not Given Heparin Sodium/Dextrose (Heparin/D5w 25,000 U/250 Ml) 25,000 unit in 250 mls @ 10 mls/hr IV.CONT TITRATE PRN; Protocol PRN Reason: Per Protocol Last Admin: 02/03/18 22:00 Dose: 1,100 units/hr, 11 mls/hr Lactulose (Lactulose Liq) 30 ml PO DAILY PRN PRN Reason: SEVERE CONSITIPATION Metoprolol Tartrate (Lopressor) 25 mg PO BID [facility] Last Admin: 02/04/18 09:08 Dose: 25 mg Morphine Sulfate (Morphine Inj) 2 mg IV.PUSH Q4H PRN PRN Reason: BREAKTHROUGH PAIN Last Admin: 02/03/18 05:04 Dose: 2 mg Ondansetron HCl (Zofran Inj) 4 mg IV.PUSH Q6H PRN PRN Reason: NAUSEA OR VOMITING Phenytoin Sodium (Dilantin) 150 mg PO BID [facility] Senna/Docusate Sodium (Nataliya-Colace) 1 tab PO BID [facility] Last Admin: 02/04/18 09:08 Dose: 1 tab Sennosides (Senokot) 17.2 mg PO Q12H PRN PRN Reason: Moderate Constipation Sodium Chloride (Ns Flush) 2 ml IV.FLUSH BID [facility] Last Admin: 02/04/18 09:09 Dose: 2 ml Sodium Chloride (Ns Flush) 2 ml IV.FLUSH PRN PRN PRN Reason: FLUSH AFTER USING IV ACCESS Allergies Allergy/AdvReac Type Severity Reaction Status Date / Time shellfish derived Allergy Severe Verified 02/08/17 14:44 Sulfa (Sulfonamide Allergy Severe Verified 02/08/17 14:44 Antibiotics) latex AdvReac Unknown Verified 02/05/17 15:20 Home Medications Medication Instructions Recorded Confirmed Type aspirin [Aspir-81] 81 mg PO DAILY 02/02/18 02/02/18 History baclofen 20 mg PO BID 02/02/18 02/02/18 History calcitonin ([place]) 1 spray INTRANASAL (ALT) DAILY 02/02/18 02/02/18 History meloxicam 15 mg PO DAILY 02/02/18 02/02/18 History metoprolol tartrate 25 mg PO BID 02/02/18 02/02/18 History prednisone 10 mg PO DIRECTED 02/02/18 02/02/18 History Physical Exam Vital signs: Vital Signs 02/03/18 15:00 02/03/18 17:00 02/03/18 18:00 Temperature 98.0 F Pulse Rate 60 72 70 Respiratory Rate 16 Blood Pressure 118/62 Pulse Oximetry 97 02/03/18 19:00 02/03/18 19:36 02/03/18 20:00 Temperature 98.7 F Pulse Rate 99 H 72 Respiratory Rate 18 Blood Pressure 122/65 Pulse Oximetry 94 L 97 97 02/03/18 21:00 02/03/18 22:00 02/03/18 23:00 Temperature 98.5 F Pulse Rate 79 70 79 Respiratory Rate 18 Blood Pressure 134/70 Pulse Oximetry 97 02/03/18 23:56 02/04/18 01:00 02/04/18 02:00 Temperature Pulse Rate 76 76 78 Respiratory Rate Blood Pressure Pulse Oximetry 02/04/18 03:00 02/04/18 04:00 02/04/18 04:48 Temperature 97.4 F L Pulse Rate 75 75 Respiratory Rate 18 18 Blood Pressure 125/58 L Pulse Oximetry 94 L 02/04/18 05:00 02/04/18 06:00 02/04/18 07:00 Temperature 97.3 F L Pulse Rate 75 78 82 Respiratory Rate 17 Blood Pressure 154/73 H Pulse Oximetry 99 02/04/18 07:49 02/04/18 08:40 02/04/18 09:00 Temperature Pulse Rate 81 71 Respiratory Rate Blood Pressure Pulse Oximetry 96 97 02/04/18 10:00 02/04/18 11:00 02/04/18 11:38 Temperature 98.3 F Pulse Rate 73 77 Respiratory Rate 18 17 Blood Pressure 119/58 L Pulse Oximetry 98 02/04/18 12:00 02/04/18 13:00 02/04/18 13:44 Temperature Pulse Rate 80 76 Respiratory Rate 17 Blood Pressure Pulse Oximetry Intake & Output 02/03/18 02/04/18 02/04/18 18:59 06:59 18:59 Intake Total 54 / 54 2924 / 2924 Output Total 500 / 500 1750 / 1750 Balance -446 / -446 1174 / 1174 Weight 186 lb 4.65 oz Intake: IV 2504 / 2504 Heparin/D5W 25,000 U/250 mL 25, 250 / 250 000 unit In 250 ml @ 1,000 UNITS/HR 10 mls/hr IV.CONT TITRATE PRN Rx#:[id number] Ofirmev Inj 1,000 mg In 100 ml 200 / 200 @ 400 mls/hr IV.SIG Q8H [facility] Rx# :[id number] Cerebyx Inj 200 MGPE In NS Inj / 54 50 ML @ 216 mls/hr IV.SIG Q12HR [facility] Rx#:[id number] Oral 420 / 420 Output: Urine Amount (Catheter) 500 / 500 1750 / 1750 Indwelling Urethral Catheter 500 / 500 1750 / 1750 Other: Date of Last Bowel Movement 02/03/18 # Bowel Movements 1 Narrative: GENERAL: In NAD HEART: reg, 1/6 syst murmur. LUNGS: clear. ABDOMEN: soft. EXTREMITIES: No LE edema. 1+ pedal pulses. NEURO: grossly nonfocal - Urinary Catheter Management Indwelling Urethral Catheter Cath placed during this visit: yes Reason for continuing: Other continuation reason Insertion date: 02/02/18 Insertion time: 03:00 Results 02/04/18 04:25 02/04/18 04:25 Cardiac Enzymes 02/03/18 02/04/18 Range/Units 05:04 04:25 AST 77 H 53 H (15-37) U/L Coagulation 02/02/18 02/02/18 02/04/18 Range/Units 17:32 23:38 04:25 APTT 40.4 H D 46.2 H 51.3 H (23.4-31.7) sec CBC 02/03/18 02/04/18 Range/Units 05:04 04:25 WBC 16.9 H 16.8 H (4.0-11.0) th/mm3 RBC 4.17 L 4.18 L (4.50-5.90) mil/mm3 Hgb 14.2 D 14.0 (13.0-17.0) gm/dL Hct 41.3 41.4 (39.0-51.0) % Plt Count 204 188 (150-450) th/mm3 Neut # (Auto) 10.5 H (1.8-7.7) th/mm3 Lymph # (Auto) 3.8 (1.0-4.8) th/mm3 [place] # (Auto) 1.9 H (0.0-0.9) th/mm3 Eos # (Auto) 0.7 H (0.0-0.4) th/mm3 Baso # (Auto) 0.1 (0.0-0.2) th/mm3 Comprehensive Metabolic Panel 02/03/18 02/04/18 Range/Units 05:04 04:25 Sodium 139 137 (136-145) meq/L Potassium 3.9 3.9 (3.5-5.1) meq/L Chloride 106 104 (98-107) meq/L Carbon Dioxide 25.2 25.3 (21.0-32.0) meq/L BUN 17 13 (7-18) mg/dL Creatinine 0.75 0.59 L (0.60-1.30) mg/dL Calcium 8.1 L 8.3 L (8.5-10.1) mg/dL AST 77 H 53 H (15-37) U/L ALT 24 24 (12-78) U/L Alkaline Phosphatase 82 110 (45-117) U/L Total Protein 6.1 L D 6.2 L (6.4-8.2) g/dL Albumin 3.0 L 2.8 L (3.4-5.0) g/dL Intake and Output 11/19/18 11/20/18 11/20/18 22:59 06:59 14:59 Intake Total 2458 / 2458 520 / 520 Output Total 500 / 500 1750 / 1750 Balance 1958 / 1957 -1230 / -1230 Intake: IV 2458 / 2458 100 / 100 Heparin/D5W 25,000 U/250 mL 25, 250 / 250 000 unit In 250 ml @ 1,000 UNITS/HR 10 mls/hr IV.CONT TITRATE PRN Rx#:[id number] Ofirmev Inj 1,000 mg In 100 ml 100 / 100 100 / 100 @ 400 mls/hr IV.SIG Q8H [facility] Rx# :[id number] Cerebyx Inj 200 MGPE In NS Inj 108 / 108 50 ML @ 216 mls/hr IV.SIG Q12HR [facility] Rx#:[id number] Oral 420 / 420 Output: Urine Amount (Catheter) 500 / 500 1750 / 1750 Indwelling Urethral Catheter 500 / 500 1750 / 1750 Other: Date of Last Bowel Movement 02/03/18 02/03/18 # Bowel Movements 1 Weight 186 lb 4.65 oz - Imaging and Cardiology Imaging: Impressions Head CT 02/03/18 06:00 CONCLUSION: 1. Stable exam. 2. No evidence of acute infarct, hemorrhage, mass or edema. . Assessment and Plan - Assessment (1) Altered mental status Code(s): R41.82 - Altered mental status, unspecified Status: Acute (2) Elevated troponin Code(s): R74.8 - Abnormal levels of other serum enzymes Status: Acute (3) Atrial fibrillation Code(s): I48.91 - Unspecified atrial fibrillation Status: Acute (4) H/O mitral valve repair Code(s): Z98.890 - Other specified postprocedural states Status: Acute (5) S/P AVR (aortic valve replacement) Code(s): Z95.2 - Presence of prosthetic heart valve Status: Acute (6) Encephalopathy Code(s): G93.40 - Encephalopathy, unspecified Status: Acute (7) Pacemaker Code(s): Z95.0 - Presence of cardiac pacemaker Status: Acute (8) Hx of CABG Code(s): Z95.1 - Presence of aortocoronary bypass graft Status: Acute - Plan Mental status improving. Troponin now trending down. No angina. Echo with low normal LV fx and inferior hypokinesis. PET scan in 2013 showed inferobasal HI. Continue aspirin and beta steph. Start statin. DC heparin. Increase activity. Neurology evaluation. F/u w Dr. Mckeon as outpatient.
--- NOTE | 2018-02-04 18:15 | P.DCO ---
- Diagnosis (1) Encephalopathy Status: Acute (2) Lumbar compression fracture Status: Acute - Physical Therapy Order: Evaluate and treat, Improve ambulation, Strength and gait training - Home Health Nursing Order: Medical education, Medication education-adverse effect - Case Management Consult Case Management Consult-Home Health: Yes - Certification I have seen patient Fransico Jimenes on 02/04/18. My clinical findings support the need for the requested home health care services because: Limited mobility due to disease progression, Deconditioned with increased weakness I certify that my clinical findings support that this patient is homebound because: Unsteady gait/balance
--- NOTE | 2018-02-04 18:16 | P.DS ---
Date of admission: 02/02/18 02:10 Primary care physician: UNKNOWN Brief History from admission: This is an 82-year-old male with PMH of HTN, Hyperlipidemia, CAD s/p CABG, h/o Pacemaker and h/o AVR w/ Bovine Valve 6yrs ago who was brought to the ER by EMS for AMS. Pt's at bedside providing most of history. Per , pt had sudden onset of severe back pain 2 days ago after "rolling over in bed", was seen at Urgent Care and had outpatient CT L-Spine which states showed "L4 compression fracture and bulging disk", pt was prescribed Baclofen, Prednisone and Meloxicam, today notes pt was more lethargic, sleeping all day then later had episode of confusion. Pt is currently awake and alert, oriented to person/place, intermittent episodes of confusion which appear to be baseline. Pt denies chest pain or SOB. Notes ongoing/severe back pain, 10/10, worse w/ movement, no incontinence reported. On arrival, BP 164/72, HR's 53, O2 sat 98% on RA, Afebrile. WBC 22.4. Chemistry essentially unremarkable except for BUN 25. Troponin 2.84. UA negative for UTI. CT Head with no acute findings. notes pt takes baby ASA daily, follows w/ Dr. Mckeon as outpatient, recent Pacemaker check yesterday DS: Diagnosis - Discharge Diagnosis (1) Encephalopathy Status: Acute (2) Lumbar compression fracture Status: Acute (3) NSTEMI (non-ST elevated myocardial infarction) Status: Acute (4) Leukocytosis Status: Acute DS: Medications - Discharge Medications Prescriptions: hydrocodone-acetaminophen 1 tab PO Q6H PRN #12 tab PRN Reason: Pain phenytoin sodium extended 150 mg PO BID #60 cap pravastatin 40 mg PO DAILY #30 tab DS: Summary - Time Spent with Patient Total time spent providing and/or coordinating discharge services: Exam Vital signs: Vital Signs 02/03/18 19:00 02/03/18 19:36 02/03/18 20:00 Temperature 98.7 F Pulse Rate 99 H 72 Respiratory Rate 18 Blood Pressure 122/65 Pulse Oximetry 94 L 97 97 02/03/18 21:00 02/03/18 22:00 02/03/18 23:00 Temperature 98.5 F Pulse Rate 79 70 79 Respiratory Rate 18 Blood Pressure 134/70 Pulse Oximetry 97 02/03/18 23:56 02/04/18 01:00 02/04/18 02:00 Temperature Pulse Rate 76 76 78 Respiratory Rate Blood Pressure Pulse Oximetry 02/04/18 03:00 02/04/18 04:00 02/04/18 04:48 Temperature 97.4 F L Pulse Rate 75 75 Respiratory Rate 18 18 Blood Pressure 125/58 L Pulse Oximetry 94 L 02/04/18 05:00 02/04/18 06:00 02/04/18 07:00 Temperature 97.3 F L Pulse Rate 75 78 82 Respiratory Rate 17 Blood Pressure 154/73 H Pulse Oximetry 99 02/04/18 07:49 02/04/18 08:40 02/04/18 09:00 Temperature Pulse Rate 81 71 Respiratory Rate Blood Pressure Pulse Oximetry 96 97 02/04/18 10:00 02/04/18 11:00 02/04/18 11:38 Temperature 98.3 F Pulse Rate 73 77 Respiratory Rate 18 17 Blood Pressure 119/58 L Pulse Oximetry 98 02/04/18 12:00 02/04/18 13:00 02/04/18 13:44 Temperature Pulse Rate 80 76 Respiratory Rate 17 Blood Pressure Pulse Oximetry 02/04/18 14:00 02/04/18 15:00 02/04/18 16:00 Temperature 98.5 F Pulse Rate 72 72 70 Respiratory Rate 18 Blood Pressure 111/59 L Pulse Oximetry 97 02/04/18 17:59 Temperature Pulse Rate 77 Respiratory Rate Blood Pressure Pulse Oximetry Intake & Output 02/03/18 02/04/18 02/04/18 18:59 06:59 18:59 Intake Total 2924 / 2924 Output Total 500 / 500 1750 / 1750 Balance -446 / -446 1174 / 1174 Weight 84.5 kg Intake: IV 2504 / 2504 Heparin/D5W 25,000 U/250 mL 25, 250 / 250 000 unit In 250 ml @ 1,000 UNITS/HR 10 mls/hr IV.CONT TITRATE PRN Rx#:[id number] Ofirmev Inj 1,000 mg In 100 ml 200 / 200 @ 400 mls/hr IV.SIG Q8H TIANNA Rx# :[id number] Cerebyx Inj 200 MGPE In NS Inj 54 / 54 54 / 54 50 ML @ 216 mls/hr IV.SIG Q12HR TIANNA Rx#:[id number] Oral 420 / 420 Output: Urine Amount (Catheter) 500 / 500 1750 / 1750 Indwelling Urethral Catheter 500 / 500 1750 / 1750 Other: Date of Last Bowel Movement 02/03/18 # Bowel Movements 1 Results Labs on day of discharge: Labs from last 24 hours 02/04/18 02/04/18 02/04/18 13:11 04:25 04:25 WBC RBC Hgb Hct MCV MCH MCHC RDW Plt Count MPV APTT 51.3 H Sodium 137 Potassium 3.9 Chloride 104 Carbon Dioxide 25.3 Anion Gap 8 BUN 13 Creatinine 0.59 L Estimated GFR Greater than 89 Random Glucose 141 H Calcium 8.3 L Total Bilirubin 1.2 H AST 53 H ALT 24 Alkaline Phosphatase 110 Total Protein 6.2 L Albumin 2.8 L Phenytoin 3.8 L 02/04/18 04:25 WBC 16.8 H RBC 4.18 L Hgb 14.0 Hct 41.4 MCV 98.9 MCH 33.5 MCHC 33.9 RDW 13.0 Plt Count 188 MPV 9.2 APTT Sodium Potassium Chloride Carbon Dioxide Anion Gap BUN Creatinine Estimated GFR Random Glucose Calcium Total Bilirubin AST ALT Alkaline Phosphatase Total Protein Albumin Phenytoin - Impressions ITS Impressions Chest X-Ray 02/02/18 00:00 CONCLUSION: No definite infiltrate is noted. Left hemidiaphragm is slightly elevated. Previous median sternotomy and pacemaker placement Lumbar Spine CT 02/02/18 02:06 CONCLUSION: 1. Mild compression deformity of the L4 vertebral body with slight retropulsion of the superior endplate by 6 mm. No other fractures are identified. There is also a coronal fracture through the anterior third of the L4 vertebral body without displacement. No interval change since the . Carotid Doppler Study 02/02/18 10:58 CONCLUSION: No evidence of flow-limiting carotid stenosis. Head CT 02/03/18 06:00 CONCLUSION: 1. Stable exam. 2. No evidence of acute infarct, hemorrhage, mass or edema. . Discharge Plan - Discharge Disposition Patient Disposition: /Home Health Service - Discharge Condition Condition: Stable - Discharge Order Discharge Orders: Discharge Order (Routine); Ordered 02/04/18 Ordered By: Yennifer Bentley - Physicians Team Primary Care Provider: UNKNOWN, Attending Provider: Yennifer Bentley Other Providers: Dillon Mckeon MD ; Oswaldo Peters MD
--- NOTE | 2018-02-04 18:20 | MG ---
cc: Bj Borden MD ELECTROENCEPHALOGRAM NUMBER: [id number] INDICATIONS: Some sharp waves isolated on past EEG, pacer. MEDICATIONS: 1. Heparin. 2. Dilantin. 3. Morphine. DESCRIPTION: A 6 Hz diffuse 60 microvolt rhythm is seen. The recording overall is synchronous and symmetric. I do not see any hemisphere asymmetries. I do not see any sharp waves. Hyperventilation is not performed. Photic stimulation is performed without significant posterior driving. IMPRESSION: Diffuse theta slowing consistent with a mild to moderate diffuse encephalopathy, but no focal abnormality was noted. No seizure activity was seen. MD JESSE Dowling/giselle , 05:46 PM , 05:50 PM
[2018-02-04] MEDS: Phenytoin Sodium 100 MG Capsule PO SCH (21:06)
[2018-02-04] MEDS: Acetaminophen 325 MG Tablet PO PRN (21:46)
[2018-02-05] MEDS: Acetaminophen 325 MG Tablet PO PRN ×2 (05:10→10:25)
[2018-02-05 05:36] LABS: Hematocrit 42.7 % (39.0-51.0); Hemoglobin 14.9 gm/dL (13.0-17.0); Mean Corpuscular HGB Conc 34.8 % (32.0-36.0); Mean Corpuscular Hemoglobin 34.4 pg (27.0-34.0); Mean Corpuscular Volume 98.8 fL (80.0-100.0); Mean Platelet Volume 9.5 fL (7.0-11.0); Platelet Count 200 th/mm3 (150-450); Red Blood Count 4.33 mil/mm3 (4.50-5.90); Red Cell Distribution Width 12.8 % (11.6-17.2); White Blood Count 17.6 th/mm3 (4.0-11.0)
[2018-02-05 06:00] LABS: Anion Gap 9 meq/L (5-15); Blood Urea Nitrogen 11 mg/dL (7-18); Calcium 8.6 mg/dL (8.5-10.1); Carbon Dioxide 26.5 meq/L (21.0-32.0); Chloride 103 meq/L (98-107); Glomerular Filtration Rate Greater Than 89 mL/min (>89); Glucose,Random 141 mg/dL (74-106); Sodium 138 meq/L (136-145)
[2018-02-05 06:01] LABS: Phenytoin (Dilantin) 3.4 mcg/mL (10.0-20.0)
[2018-02-05 08:02] VITALS: BP 129/81; RESP 16; TEMP 98.4; O2SAT 95
--- NOTE | 2018-02-05 08:48 | P.PNNEU ---
Subjective Subjective Comments: no acute events. no branham/cp/dyspnea. no vertigo, no weakness Active Medications: Active Medications Acetaminophen (Tylenol) 650 mg PO Q4H PRN PRN Reason: Temp > 100.4 Last Admin: 02/05/18 05:10 Dose: 650 mg Hydrocodone Bitart/Acetaminophen ([place] 5/325) 1 tab PO Q6H PRN PRN Reason: PAIN SCALE 1 TO 5 Last Admin: 02/04/18 12:37 Dose: 1 tab Hydrocodone Bitart/Acetaminophen ([place] 5/325) 2 tab PO Q6H PRN PRN Reason: PAIN SCALE 6 TO 10 Al Hydroxide/Mg Hydroxide (Milk Of Magnesia Liq) 30 ml PO Q12H PRN PRN Reason: Mild Constipation Aspirin (Aspirin Chew) 81 mg PO DAILY [facility] Last Admin: 02/04/18 09:08 Dose: 81 mg Bisacodyl (Dulcolax Supp) 10 mg RECTAL DAILY PRN PRN Reason: SEVERE CONSITIPATION Calcitonin Eek (Calcitonin Eek Nasal) 1 sprays NASAL DAILY [facility] Last Admin: 02/04/18 09:09 Dose: Not Given Heparin Sodium/Dextrose (Heparin/D5w 25,000 U/250 Ml) 25,000 unit in 250 mls @ 10 mls/hr IV.CONT TITRATE PRN; Protocol PRN Reason: Per Protocol Last Admin: 02/03/18 22:00 Dose: 1,100 units/hr, 11 mls/hr Lactulose (Lactulose Liq) 30 ml PO DAILY PRN PRN Reason: SEVERE CONSITIPATION Metoprolol Tartrate (Lopressor) 25 mg PO BID [facility] Last Admin: 02/04/18 21:07 Dose: 25 mg Morphine Sulfate (Morphine Inj) 2 mg IV.PUSH Q4H PRN PRN Reason: BREAKTHROUGH PAIN Last Admin: 02/03/18 05:04 Dose: 2 mg Ondansetron HCl (Zofran Inj) 4 mg IV.PUSH Q6H PRN PRN Reason: NAUSEA OR VOMITING Phenytoin Sodium (Dilantin) 150 mg PO BID [facility] Last Admin: 02/04/18 21:06 Dose: 150 mg Senna/Docusate Sodium (Nataliya-Colace) 1 tab PO BID [facility] Last Admin: 02/04/18 21:07 Dose: 1 tab Sennosides (Senokot) 17.2 mg PO Q12H PRN PRN Reason: Moderate Constipation Sodium Chloride (Ns Flush) 2 ml IV.FLUSH BID TIANNA Last Admin: 02/04/18 21:07 Dose: 2 ml Sodium Chloride (Ns Flush) 2 ml IV.FLUSH PRN PRN PRN Reason: FLUSH AFTER USING IV ACCESS Allergies/Adverse Reactions: Allergies Allergy/AdvReac Type Severity Reaction Status Date / Time shellfish derived Allergy Severe Verified 02/08/17 14:44 Sulfa (Sulfonamide Allergy Severe Verified 02/08/17 14:44 Antibiotics) latex AdvReac Unknown Verified 02/05/17 15:20 Review of Systems All other systems reviewed negative except as stated in HPI Physical Exam Vital signs: Vital Signs 02/04/18 09:00 02/04/18 10:00 02/04/18 11:00 Temperature 98.3 F Pulse Rate 71 73 77 Respiratory Rate 18 Blood Pressure 119/58 L Pulse Oximetry 98 02/04/18 11:38 02/04/18 12:00 02/04/18 13:00 Temperature Pulse Rate 80 76 Respiratory Rate 17 Blood Pressure Pulse Oximetry 02/04/18 13:44 02/04/18 14:00 02/04/18 15:00 Temperature 98.5 F Pulse Rate 72 72 Respiratory Rate 17 18 Blood Pressure 111/59 L Pulse Oximetry 97 02/04/18 16:00 02/04/18 17:59 02/04/18 19:00 Temperature Pulse Rate 70 77 82 Respiratory Rate Blood Pressure Pulse Oximetry 02/04/18 20:00 02/04/18 20:34 02/04/18 21:00 Temperature 98.2 F Pulse Rate 80 82 79 Respiratory Rate 18 Blood Pressure 119/59 L Pulse Oximetry 98 02/04/18 22:00 02/04/18 23:00 02/05/18 00:00 Temperature 98.2 F Pulse Rate 80 79 79 Respiratory Rate 18 Blood Pressure 112/75 Pulse Oximetry 97 02/05/18 01:00 02/05/18 02:00 02/05/18 03:00 Temperature 98 F Pulse Rate 81 87 84 Respiratory Rate 19 Blood Pressure 123/79 Pulse Oximetry 98 02/05/18 04:00 02/05/18 05:00 02/05/18 06:00 Temperature Pulse Rate 76 77 77 Respiratory Rate Blood Pressure Pulse Oximetry 02/05/18 07:00 Temperature 98.4 F Pulse Rate 92 H Respiratory Rate 16 Blood Pressure 129/81 Pulse Oximetry 95 Intake & Output 02/04/18 02/05/18 02/05/18 18:59 06:59 18:59 Intake Total 54 / 54 420 / 420 Output Total 1100 / 1100 Balance 54 -680 / -680 Weight 84 kg Intake: IV Cerebyx Inj 200 MGPE In NS Inj 54 50 ML @ 216 mls/hr IV.SIG Q12HR TIANNA Rx#:[id number] Oral 420 / 420 Output: Urine 1100 / 1100 Other: # Bowel Movements 0 Narrative: GENERAL: in NAD, SKIN: Warm and dry. HEAD: Atraumatic. Normocephalic. EYES: Pupils equal and round. No scleral icterus. ENT: No nasal bleeding or discharge. NECK: Trachea midline. No JVD. CARDIOVASCULAR: Regular rate and rhythm. RESPIRATORY: No accessory muscle use. GASTROINTESTINAL: Abdomen soft, non-tender, nondistended. MUSCULOSKELETAL: Extremities without clubbing, cyanosis, or edema. back brace on NEUROLOGICAL: Awake and alert. sitting up, finished breakfast, Oriented 3, more fluent, recognizes me, able name simple objects, no faith tenderness, can follow simple motor requests, no facial asymmetry, OU 3-2mm, eomi, VFF, No drift , Motor grossly within normal limits. Five out of 5 muscle strength in the arms and legs. Tone normal in all 4 limbs, Sensory normal in all 4 extremities to pin, msr 1-2+ sym, no clonus, planterflexor, PSYCHIATRIC: Calm, appropriate. humorous - Constitutional no acute distress - Routine HEENT Exam Head: Present: normocephalic Eye: Present: EOMI - Urinary Catheter Management Indwelling Urethral Catheter Cath placed during this visit: yes Reason for continuing: Other continuation reason Insertion date: 02/02/18 Insertion time: 03:00 Objective Laboratory Results - last 24 hr 02/04/18 02/05/18 02/05/18 13:11 04:43 04:43 WBC 17.6 H RBC 4.33 L Hgb 14.9 Hct 42.7 MCV 98.8 MCH 34.4 H MCHC 34.8 RDW 12.8 Plt Count 200 MPV 9.5 APTT 29.3 D Sodium Potassium Chloride Carbon Dioxide Anion Gap BUN Creatinine Estimated GFR Random Glucose Calcium Phenytoin 3.8 L 02/05/18 04:43 WBC RBC Hgb Hct MCV MCH MCHC RDW Plt Count MPV APTT Sodium 138 Potassium 4.0 Chloride 103 Carbon Dioxide 26.5 Anion Gap 9 BUN 11 Creatinine 0.62 Estimated GFR Greater than 89 Random Glucose 141 H Calcium 8.6 Phenytoin 3.4 L Review/Management - Diagnosis (1) Encephalopathy Code(s): G93.40 - Encephalopathy, unspecified Status: Acute Current Visit: Yes (2) Pacemaker Code(s): Z95.0 - Presence of cardiac pacemaker Status: Acute Current Visit: Yes (3) NSTEMI (non-ST elevated myocardial infarction) Code(s): I21.4 - Non-ST elevation (NSTEMI) myocardial infarction Status: Acute Current Visit: Yes (4) Lumbar compression fracture Code(s): S32.000A - Wedge compression fracture of unspecified lumbar vertebra, initial encounter for closed fracture Status: Acute Current Visit: Yes (5) Leukocytosis Code(s): D72.829 - Elevated white blood cell count, unspecified Status: Acute Current Visit: Yes - Review/Management Plan: Mild disorientation and disfluency. He may have sustained a tiny left frontotemporal infarct commitment with non-STEMI Other consideration would include medication effect secondary to baclofen Initial CT brain scan negative for any acute lesion. Unable to obtain an MRI due to having a pacemaker carotids nml On heparin drip for STEMI Suspected steroid-induced leukocytosis/cardiac? EEG-abnormal- frontal isolated sharps. ? 2/2 recent baclofen use repeat eeg- negative continue dilantin Recommendation neuro stable ? mild persistent leukocytosis mental status improved, no fever, no headache. we could check csf studies once off hep gtt no driving until seen outpatient Behavioral modification and risk factor reduction. Weight loss, blood pressure control, blood sugar control, lipid control. Exercise
[2018-02-05] MEDS ORDERED: Phenytoin Susp 100 MG/4 ML UDC PO SCH (09:00)
[2018-02-05] MEDS: Senna/Docusate Sodium 8.6/50 MG Tablet PO SCH (09:39)
[2018-02-05] MEDS: Metoprolol Tartrate 25 MG Tablet PO SCH (09:39)
[2018-02-05] MEDS: Sodium Chloride 0.9% 2 ML Flush BID IV.FLUSH SCH (09:41)
--- NOTE | 2018-02-05 09:41 | P.DS ---
Date of admission: 02/02/18 02:10 Primary care physician: UNKNOWN Brief History from admission: HPI from the admitting physician: This is an 82-year-old male with PMH of HTN, Hyperlipidemia, CAD s/p CABG, h/o Pacemaker and h/o AVR w/ Bovine Valve 6yrs ago who was brought to the ER by EMS for AMS. Pt's at bedside providing most of history. Per , pt had sudden onset of severe back pain 2 days ago after "rolling over in bed", was seen at Urgent Care and had outpatient CT L-Spine which states showed "L4 compression fracture and bulging disk", pt was prescribed Baclofen, Prednisone and Meloxicam, today notes pt was more lethargic, sleeping all day then later had episode of confusion. Pt is currently awake and alert, oriented to person/place, intermittent episodes of confusion which appear to be baseline. Pt denies chest pain or SOB. Notes ongoing/severe back pain, /10, worse w/ movement, no incontinence reported. On arrival, BP 164/72, HR's 53, O2 sat 98% on RA, Afebrile. WBC 22.4. Chemistry essentially unremarkable except for BUN 25. Troponin 2.84. UA negative for UTI. CT Head with no acute findings. notes pt takes baby ASA daily, follows w/ Dr. Mckeon as outpatient, recent Pacemaker check yesterday Patient update on day of discharge: Patient reports he is feeling better overall. He is anxious to go home. Is alert and oriented. Speech is fluent. DS: Diagnosis - Discharge Diagnosis (1) Encephalopathy Status: Acute (2) Lumbar compression fracture Status: Acute (3) NSTEMI (non-ST elevated myocardial infarction) Status: Acute (4) Leukocytosis Status: Acute DS: Medications - Discharge Medications Prescriptions: hydrocodone-acetaminophen 1 tab PO Q6H PRN #12 tab PRN Reason: Pain phenytoin sodium extended 150 mg PO BID #60 cap pravastatin 40 mg PO DAILY #30 tab DS: Summary Hospital Course: 82 year OLD male with history of HTN, HLD, CAD s/p CABG, h/o pacemaker , h/o AVR and recent L4 compression fracture admitted for confusion and altered mental status after his noted he speech was "gurgled" and he wasn't making any sense. Evaluation and treatment course detailed below: 1. Altered mental status/encephalopathy: Resolved - CT head negative except for diffuse age-appropriate atrophy - Concern for possible CVA vs. medication side effect since recently on Baclofen. Repeat head CT is negative. -Cannot have MRI due to pacemaker. - Carotid U/S with no evidence of flow-limiting carotid stenosis - Appreciate Neurology input, S/P IV Cerebyx ordered for possible seizure activities. On Dilantin per Neurology. To follow up outpatient. 2. Elevated troponin/NSTEMI - Troponin: 2.85 > 4.81 > 3.87 - No chest pain or renal insufficiency - Cardiology consulted and recommended continued medical management - Pt was on heparin gtt and it was discontinued. - Continue ASA, BB - 2D echo with EF 50-55% and inferior hypokinesis, [id number] mitral regurge, PAP 50.4 mmHg. 3. L4 acute compression fracture - L-spine CT showing mild compression deformity of the L4 vertebral body with slight retropulsion of the superior endplate by 6 mm. No other fractures identified. There is also coronal fracture through the anterior third of the L4 vertebral body without displacement. No interval change since the - Vitamin D level pending - PT - Conservative management at this time - Pain control - Resume home nasal calcitonin - TLSO brace as needed for comfort. 4. Leukocytosis - WBC 22.4 on admission,trended down - No signs of infection, afebrile, U/A negative, CXR negative - Likely secondary to steroid use for compression fracture 5. Bradycardia - resolved - Patient with pacemaker in place - Continue home metoprolol - Cardiology followed the patient - Time Spent with Patient Total time spent providing and/or coordinating discharge services: Greater than 30 minutes Exam Vital signs: Vital Signs 02/04/18 10:00 02/04/18 11:00 02/04/18 11:38 Temperature 98.3 F Pulse Rate 73 77 Respiratory Rate 18 17 Blood Pressure 119/58 L Pulse Oximetry 98 02/04/18 12:00 02/04/18 13:00 02/04/18 13:44 Temperature Pulse Rate 80 76 Respiratory Rate 17 Blood Pressure Pulse Oximetry 02/04/18 14:00 02/04/18 15:00 02/04/18 16:00 Temperature 98.5 F Pulse Rate 72 72 70 Respiratory Rate 18 Blood Pressure 111/59 L Pulse Oximetry 97 02/04/18 17:59 02/04/18 19:00 02/04/18 20:00 Temperature Pulse Rate 77 82 80 Respiratory Rate Blood Pressure Pulse Oximetry 02/04/18 20:34 02/04/18 21:00 02/04/18 22:00 Temperature 98.2 F Pulse Rate 82 79 80 Respiratory Rate 18 Blood Pressure 119/59 L Pulse Oximetry 98 02/04/18 23:00 02/05/18 00:00 02/05/18 01:00 Temperature 98.2 F Pulse Rate 79 79 81 Respiratory Rate 18 Blood Pressure 112/75 Pulse Oximetry 97 02/05/18 02:00 02/05/18 03:00 02/05/18 04:00 Temperature 98 F Pulse Rate 87 84 76 Respiratory Rate 19 Blood Pressure 123/79 Pulse Oximetry 98 02/05/18 05:00 02/05/18 06:00 02/05/18 07:00 Temperature 98.4 F Pulse Rate 77 77 92 H Respiratory Rate 16 Blood Pressure 129/81 Pulse Oximetry 95 02/05/18 08:00 Temperature Pulse Rate Respiratory Rate Blood Pressure Pulse Oximetry 95 Intake & Output 02/04/18 02/05/18 02/05/18 18:59 06:59 18:59 Intake Total 54 / 54 420 / 420 Output Total 1100 / 1100 Balance 54 / 54 -680 / -680 Weight 84 kg Intake: IV 54 / 54 Cerebyx Inj 200 MGPE In NS Inj 54 / 54 50 ML @ 216 mls/hr IV.SIG Q12HR TIANNA Rx#:[id number] Oral 420 / 420 Output: Urine 1100 / 1100 Other: # Bowel Movements 0 Narrative: GENERAL: Elderly male in no acute distress HEART: RRR with 1/6 ANTONY. LUNGS: CTAB without wheezes or crackles. ABDOMEN: +BS, soft, NT, ND. EXTREMITIES: No LE edema. 1+ pedal pulses. NEURO: Awake and alert. Oriented to person and place. Some expressive, very subtle intermittent expressive aphasia and difficulty with word-finding. UE and LE strength 5/5 bilaterally. Sensation intact bilaterally. PSYCH: Mood appears appropriate. Results Procedures completed during hospitalization: None Labs on day of discharge: Labs from last 24 hours 02/05/18 02/05/18 02/05/18 04:43 04:43 04:43 WBC 17.6 H RBC 4.33 L Hgb 14.9 Hct 42.7 MCV 98.8 MCH 34.4 H MCHC 34.8 RDW 12.8 Plt Count 200 MPV 9.5 APTT 29.3 D Sodium 138 Potassium 4.0 Chloride 103 Carbon Dioxide 26.5 Anion Gap 9 BUN 11 Creatinine 0.62 Estimated GFR Greater than 89 Random Glucose 141 H Calcium 8.6 Phenytoin 3.4 L 02/04/18 13:11 WBC RBC Hgb Hct MCV MCH MCHC RDW Plt Count MPV APTT Sodium Potassium Chloride Carbon Dioxide Anion Gap BUN Creatinine Estimated GFR Random Glucose Calcium Phenytoin 3.8 L - Impressions ITS Impressions Chest X-Ray 02/02/18 00:00 CONCLUSION: No definite infiltrate is noted. Left hemidiaphragm is slightly elevated. Previous median sternotomy and pacemaker placement Lumbar Spine CT 02/02/18 02:06 CONCLUSION: 1. Mild compression deformity of the L4 vertebral body with slight retropulsion of the superior endplate by 6 mm. No other fractures are identified. There is also a coronal fracture through the anterior third of the L4 vertebral body without displacement. No interval change since the . Carotid Doppler Study 02/02/18 10:58 CONCLUSION: No evidence of flow-limiting carotid stenosis. Head CT 02/03/18 06:00 CONCLUSION: 1. Stable exam. 2. No evidence of acute infarct, hemorrhage, mass or edema. . Discharge Plan - Discharge Disposition Patient Disposition: W/Home Health Service - Discharge Condition Condition: Stable - Discharge Order Discharge Orders: Discharge Order (Routine); Ordered 02/05/18 Ordered By: Yennifer Bentley - Physicians Team Primary Care Provider: UNKNOWN, Attending Provider: Yennifer Bentley Other Providers: Dillon Mckeon MD ; Oswaldo Peters MD
[2018-02-05] MEDS: Calcitonin Salmon Nasal 200 UNITS/Actuation - (3.7 ML) NASAL SCH (10:25)
[2018-02-05 10:58] VITALS: PULSE 78
--- NOTE | 2018-02-05 15:16 | P.PNCA ---
Subjective Interval history: No CP or SOB, feels better, confusion improved Medications and Allergies Active Medications: Active Medications Acetaminophen (Tylenol) 650 mg PO Q4H PRN PRN Reason: Temp > 100.4 Last Admin: 02/05/18 10:25 Dose: 650 mg Hydrocodone Bitart/Acetaminophen ([place] 5/325) 1 tab PO Q6H PRN PRN Reason: PAIN SCALE 1 TO 5 Last Admin: 02/04/18 12:37 Dose: 1 tab Hydrocodone Bitart/Acetaminophen ([place] 5/325) 2 tab PO Q6H PRN PRN Reason: PAIN SCALE 6 TO 10 Al Hydroxide/Mg Hydroxide (Milk Of Magnesia Liq) 30 ml PO Q12H PRN PRN Reason: Mild Constipation Aspirin (Aspirin Chew) 81 mg PO DAILY [facility] Last Admin: 02/05/18 09:38 Dose: 81 mg Bisacodyl (Dulcolax Supp) 10 mg RECTAL DAILY PRN PRN Reason: SEVERE CONSITIPATION Calcitonin [place] (Calcitonin [place] Nasal) 1 sprays NASAL DAILY [facility] Last Admin: 02/05/18 10:25 Dose: 1 sprays Heparin Sodium/Dextrose (Heparin/D5w 25,000 U/250 Ml) 25,000 unit in 250 mls @ 10 mls/hr IV.CONT TITRATE PRN; Protocol PRN Reason: Per Protocol Last Admin: 02/03/18 22:00 Dose: 1,100 units/hr, 11 mls/hr Lactulose (Lactulose Liq) 30 ml PO DAILY PRN PRN Reason: SEVERE CONSITIPATION Metoprolol Tartrate (Lopressor) 25 mg PO BID [facility] Last Admin: 02/05/18 09:39 Dose: 25 mg Morphine Sulfate (Morphine Inj) 2 mg IV.PUSH Q4H PRN PRN Reason: BREAKTHROUGH PAIN Last Admin: 02/03/18 05:04 Dose: 2 mg Ondansetron HCl (Zofran Inj) 4 mg IV.PUSH Q6H PRN PRN Reason: NAUSEA OR VOMITING Phenytoin (Dilantin Liq) 150 mg PO TID [facility] Last Admin: 02/05/18 10:20 Dose: 150 mg Senna/Docusate Sodium (Nataliya-Colace) 1 tab PO BID [facility] Last Admin: 02/05/18 09:39 Dose: Not Given Sennosides (Senokot) 17.2 mg PO Q12H PRN PRN Reason: Moderate Constipation Sodium Chloride (Ns Flush) 2 ml IV.FLUSH BID TIANNA Last Admin: 02/05/18 09:41 Dose: 2 ml Sodium Chloride (Ns Flush) 2 ml IV.FLUSH PRN PRN PRN Reason: FLUSH AFTER USING IV ACCESS Allergies Allergy/AdvReac Type Severity Reaction Status Date / Time shellfish derived Allergy Severe Verified 02/08/17 14:44 Sulfa (Sulfonamide Allergy Severe Verified 02/08/17 14:44 Antibiotics) latex AdvReac Unknown Verified 02/05/17 15:20 Home Medications Medication Instructions Recorded Confirmed Type aspirin [Aspir-81] 81 mg PO DAILY 02/02/18 02/02/18 History calcitonin (salmon) 1 spray INTRANASAL (ALT) DAILY 02/02/18 02/02/18 History meloxicam 15 mg PO DAILY 02/02/18 02/02/18 History metoprolol tartrate 25 mg PO BID 02/02/18 02/02/18 History prednisone 10 mg PO DIRECTED 02/02/18 02/02/18 History Physical Exam Vital signs: Vital Signs 02/04/18 16:00 02/04/18 17:59 02/04/18 19:00 Temperature Pulse Rate 70 77 82 Respiratory Rate Blood Pressure Pulse Oximetry 02/04/18 20:00 02/04/18 20:34 02/04/18 21:00 Temperature 98.2 F Pulse Rate 80 82 79 Respiratory Rate 18 Blood Pressure 119/59 L Pulse Oximetry 98 02/04/18 22:00 02/04/18 23:00 02/05/18 00:00 Temperature 98.2 F Pulse Rate 80 79 79 Respiratory Rate 18 Blood Pressure 112/75 Pulse Oximetry 97 02/05/18 01:00 02/05/18 02:00 02/05/18 03:00 Temperature 98 F Pulse Rate 81 87 84 Respiratory Rate 19 Blood Pressure 123/79 Pulse Oximetry 98 02/05/18 04:00 02/05/18 05:00 02/05/18 06:00 Temperature Pulse Rate 76 77 77 Respiratory Rate Blood Pressure Pulse Oximetry 02/05/18 07:00 02/05/18 08:00 02/05/18 09:00 Temperature 98.4 F Pulse Rate 87 88 80 Respiratory Rate 16 Blood Pressure 129/81 Pulse Oximetry 95 95 02/05/18 10:00 Temperature Pulse Rate 78 Respiratory Rate Blood Pressure Pulse Oximetry Intake & Output 02/04/18 02/05/18 02/05/18 18:59 06:59 18:59 Intake Total 54 / 54 420 / 420 Output Total 1100 / 1100 Balance 54 / 54 -680 / -680 Weight 185 lb 3.013 oz Intake: IV 54 / 54 Cerebyx Inj 200 MGPE In NS Inj 54 / 54 50 ML @ 216 mls/hr IV.SIG Q12HR TIANNA Rx#:[id number] Oral 420 / 420 Output: Urine 1100 / 1100 Other: # Bowel Movements 0 Narrative: GENERAL: In NAD HEART: RRR with 1/6 ANTONY. LUNGS: CTAB without wheezes or crackles. ABDOMEN: +BS, soft, NT, ND. EXTREMITIES: No LE edema. 1+ pedal pulses. NEURO: Awake and alert, grossly nonfocal. - Urinary Catheter Management Indwelling Urethral Catheter Cath placed during this visit: yes Reason for continuing: Other continuation reason Insertion date: 02/02/18 Insertion time: 03:00 Results 02/05/18 04:43 02/05/18 04:43 Cardiac Enzymes 02/04/18 Range/Units 04:25 AST 53 H (15-37) U/L Coagulation 02/04/18 02/05/18 Range/Units 04:25 04:43 APTT 51.3 H 29.3 D (23.4-31.7) sec CBC 02/04/18 02/05/18 Range/Units 04:25 04:43 WBC 16.8 H 17.6 H (4.0-11.0) th/mm3 RBC 4.18 L 4.33 L (4.50-5.90) mil/mm3 Hgb 14.0 14.9 (13.0-17.0) gm/dL Hct 41.4 42.7 (39.0-51.0) % Plt Count 188 200 (150-450) th/mm3 Comprehensive Metabolic Panel 02/04/18 02/05/18 Range/Units 04:25 04:43 Sodium 137 138 (136-145) meq/L Potassium 3.9 4.0 (3.5-5.1) meq/L Chloride 104 103 (98-107) meq/L Carbon Dioxide 25.3 26.5 (21.0-32.0) meq/L BUN 13 11 (7-18) mg/dL Creatinine 0.59 L 0.62 (0.60-1.30) mg/dL Calcium 8.3 L 8.6 (8.5-10.1) mg/dL AST 53 H (15-37) U/L ALT 24 (12-78) U/L Alkaline Phosphatase 110 (45-117) U/L Total Protein 6.2 L (6.4-8.2) g/dL Albumin 2.8 L (3.4-5.0) g/dL Intake and Output 02/05/18 02/05/18 02/05/18 06:59 14:59 22:59 Intake Total 420 / 420 Output Total 1100 / 1100 Balance -680 / -680 Intake: Oral 420 / 420 Output: Urine 1100 / 1100 Other: # Bowel Movements 0 Weight 185 lb 3.013 oz Assessment and Plan - Assessment (1) Altered mental status Code(s): R41.82 - Altered mental status, unspecified Status: Acute (2) Elevated troponin Code(s): R74.8 - Abnormal levels of other serum enzymes Status: Acute (3) Atrial fibrillation Code(s): I48.91 - Unspecified atrial fibrillation Status: Acute (4) H/O mitral valve repair Code(s): Z98.890 - Other specified postprocedural states Status: Acute (5) S/P AVR (aortic valve replacement) Code(s): Z95.2 - Presence of prosthetic heart valve Status: Acute (6) Encephalopathy Code(s): G93.40 - Encephalopathy, unspecified Status: Acute (7) Pacemaker Code(s): Z95.0 - Presence of cardiac pacemaker Status: Acute (8) Hx of CABG Code(s): Z95.1 - Presence of aortocoronary bypass graft Status: Acute - Plan Mental status improved. No angina. Echo with low normal LV fx and inferior hypokinesis. 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 Continue aspirin and beta steph; also statin. Increase activity. Neurology evaluation. Discharge as planned. F/u w Dr. Mckeon as outpatient.
[2018-02-07 23:53] LABS: Vitamin D 1,25-Dihydroxy 53 pg/mL (18-72)
== END 2018-02-05 12:09 | disposition home health service (06) ==
LOC: NEPC 23:59 → NEDA 02-02 02:10 → HCPC 02-02 03:21
PROVIDERS: ADMIT Family Medicine; ATTEND Family Medicine